=== PATIENT | female | born 2000 | race Caucasian/White ===

== ENCOUNTER → 2020-02-29 09:59 | Outpatient (BNVA) | payer OTHER, SELFPAY | PROVIDERS: Family Provider Physician Assistant Medical; PCP Physician Assistant Medical; Visit Provider Registered Nurse | DX: M25.9 Joint disorder, unspecified (principal) | CPT/HCPCS: 86140; 86431 ==

== ENCOUNTER → 2020-04-18 11:11 | Outpatient (BNVA) | payer OTHER, SELFPAY | PROVIDERS: Family Provider Physician Assistant Medical; PCP Physician Assistant Medical; Visit Provider Obstetrics & Gynecology | DX: R87.612 Low grade squamous intraepithelial lesion on cytologic smear of cervix (LGSIL) (principal); Z01.411 Encounter for gynecological examination (general) (routine) with abnormal findings; N92.6 Irregular menstruation, unspecified | CPT/HCPCS: 88175 ==

== ENCOUNTER 2021-04-09 10:24 | Emergency (ER) | payer OTHER, MEDICAID, SELFPAY ==
[2021-04-09 10:37] VITALS: BP 111/69; PULSE 63; RESP 18; TEMP 36.8; O2SAT 98; BMI 31.8
--- NOTE | 2021-04-09 10:49 | US_ITS ---
WS: [id number] EARLY OBSTETRICAL ULTRASOUND (<14 WEEKS). HISTORY: 7 weeks and spotting red blood COMPARISON: None available. Single intrauterine gestational sac is identified. Cardiac activity at 129. [place]-rump length measure s 0.7 cm which corresponds to a gestation of 6w4d. Normal-appearing yolk sac and amnion demonstrated. No subchorionic hemorrhage. Small amount of free fluid in the cul-de-sac. Both ovaries are identified and unremarkable. Corpus [place]are[place] teum cyst with the RIGHT ovary measures 2.3 x 2.3 x 1.7 cm. On several images there is a possibility of a bicornuate or septate uterus. US/US OB transvaginal [id number] IMPRESSION: 1. Single intrauterine gestation of 6 weeks 4 days with an EDC of 11/29/2021. 2. Normal cardiac activity. 3. No subchorionic hemorrhage.
--- NOTE | 2021-04-09 10:50 | ED_ITS ---
HPI - Female Genitourinary General: Chief complaint: Urogenital-Female Stated complaint: Spotting, cramping dr sent for ultrasound Time Seen by Provider: 04/09/21 10:48 History of Present Illness: HPI Narrative: Patient is a 21-year-old female that is 7 weeks and is having some vaginal bleeding. [facility] today and was sent here to the ED to get an ultrasound. Patient says she has had vaginal bleeding of bright red blood for the past 4 days. She says the bleeding has not decreased or increased since it started and has stayed consistent. Denies any passage of clots. She says she goes through approximately 2 pads in 2 hours. She also endorses having some lower abdominal cramping that is mild. Denies any fever, chills, vomiting, bladder or bowel symptoms. Associated symptoms: Reports abdominal pain (lower abdominal cramping); Deny headache(s) or nausea Date of Last Menstrual Period: 02/13/21 Review of Systems Const: Denies: fever(s), chills or fatigue Eyes: Denies: change in vision or eye discomfort ENMT: Denies: throat pain, odynophagia, nasal discharge or nasal congestion Card: Denies: chest pain, palpitations, edema, swelling of feet/ankles, dyspnea on exertion or orthopnea Resp: Denies: dyspnea, productive cough or non-productive cough GI: Reports: abdominal pain (lower abdominal cramping); Denies: nausea, vomiting, diarrhea, constipation or hematochezia : Reports: vaginal bleeding; Denies: flank pain, dysuria or hematuria Musc: Denies: neck pain, back pain or extremity swelling Skin/Breast: Denies: rash or new lesions Neuro: Denies: headache(s), numbness in extremities or weakness in extremities PFSH ED PFSH: Medical History Abnormal Pap smear of cervix Irregular menstrual bleeding Surgical History History of ear surgery Family History Grandmother Diabetes maternal Hypertension maternal Family/Other Colon cancer maternal uncle Grandfather Heart disease Other Ovarian cancer Social History Smoking and tobacco status: never smoked Second hand smoke exposure: No Alcohol intake: current Alcohol intake frequency: few times a week Current gender identity: Female Female Reproductive History: Date of last menstrual period: 02/13/21 Physical Exam Const: COMMON NORMALS: no acute distress, patient oriented x3 and alert GENERAL APPEARANCE: cooperative and comfortable HENMT: COMMON NORMALS: normocephalic HEAD & SCALP: normocephalic MOUTH: Normal oral and palatal mucosa present THROAT: posterior oropharynx normal and uvula midline Neck/C-Spine: COMMON NORMALS: supple GENERAL: Yes normal visual inspection Resp: COMMON NORMALS: normal respiratory effort, No retractions, No use of accessory muscles and clear to auscultation bilaterally AUSCULTATION: clear to auscultation bilaterally Cardio: COMMON NORMALS: regular rate, regular rhythm, S1 normal heart sound present, S2 normal heart sound present, No gallops present (Cardio), No clicks present (Cardio), No murmurs present (Cardio) and Peripheral pulses 2+ throughout RATE: regular rate RHYTHM: regular rhythm HEART SOUNDS: S1 normal heart sound present and S2 normal heart sound present PERIPHERAL PULSES: Peripheral pulses 2+ throughout GI: COMMON NORMALS: Normal to inspection, nondistended, normoactive bowel sounds present, Soft to palpation, non-tender and no masses PALPATION: Yes Soft to palpation OTHER: Patient has no tenderness upon deep and light pa lpation in all 4 quadrants of the abdomen. : COMMON NORMALS: Yes no CVA tenderness BLADDER/KIDNEY EXAM: Yes no CVA tenderness Back/Pelvis: COMMON NORMALS: no CVA tenderness Extremity: COMMON NORMALS: normal to inspection Neuro: COMMON NORMALS: patient oriented x3 and moves all extremities SENSORIUM/ORIENTATION: Yes alert Skin: GENERAL SKIN EXAM: dry skin Course Vital Signs: Vital signs: Vital Signs Temperature 98.3 F 04/09/21 10:37 Pulse Rate 63 04/09/21 10:37 Respiratory Rate 18 04/09/21 10:37 Blood Pressure 111/69 04/09/21 10:37 Pulse Oximetry 98 04/09/21 10:37 MDM - Female MDM Narrative: Medical decision making narrative: Patient is a 21-year-old female that is approximately 7 weeks gestation comes to the ED for spotting and cramping. Patient was sent over here by OB doctor to get an ultrasound. Upon exam patient appears in no acute distress or pain and is nontoxic-appearing. Rest of exam is benign. Vitals are stable. CBC, CMP and UA were unremarkable. hCG quant 52,027. OB ultrasound showed a single intrauterine with a gestational around 6 weeks and 4 days. Normal cardiac activity noted. No subchorionic hemorrhage seen. Patient was diagnosed with vaginal bleeding for 22 weeks gestation and discharged home. She has a follow-up appointment with her OB doctor next April 16. Return to ED precautions given. Patient understood agree with plan. Lab Data: Attestation: I reviewed the patient's lab results. Labs: Lab Results 04/09/21 04/09/21 04/09/21 Range/Units 11:36 11:36 11:36 WBC 5.5 (4.0-10.0) 10^3/ uL RBC 4.16 (4.1-5.3) 10^6/u L Hgb 12.5 (11.5-15.3) g/dL Hct 36.7 L (37.0-47.0) % MCV 88.2 (81-99) fL MCH 30.0 (28.0-34.0) pg MCHC 34.1 (30.0-36.0) g/dL RDW 11.9 L (12.1-15.1) % Plt Count 197 (130-400) 10^3/c mm MPV 11.5 H (7.4-10.4) fL Neut % (Auto) 63.0 % Lymph % (Auto) 27.3 % [place] % (Auto) 7.9 % Eos % (Auto) 1.1 % Baso % (Auto) 0.5 % Neut # (Auto) 3.49 (1.8-7.7) 10^3/u L Lymph # (Auto) 1.5 (0.8-4.8) 10^3/u L [place] # (Auto) 0.4 (0.2-0.9) 10^3/u L Eos # (Auto) 0.1 (0.0-0.8) 10^3/u L Baso # (Auto) 0.0 (0.0-0.1) 10^3/u L Nucleated RBC % (a uto) 0 % Nucleated RBCs # 0.0 /100WBC Sodium 137 (136-145) mmol/L Potassium 3.9 (3.5-5.1) mmol/L Chloride 102 (98-107) mmol/L Carbon Dioxide 25 (22-29) mmol/L Anion Gap 13.9 (5-19) BUN 9 (6-20) mg/dL Creatinine 0.5 (0.5-0.9) mg/dL GFR Calculation 152.9 H (90-130) mL/min Glucose 85 (65-115) mg/dL Calculated Osmolal ity 282 L (285-295) mOsm/k g Calcium 9.0 (8.5-10.5) mg/dL Total Bilirubin 0.3 (0.15-1.2) mg/dL AST 16 (0-32) U/L ALT 17 (0-33) U/L Alkaline Phosphata se 50 (35-105) IU/L Total Protein 7.2 (6.6-8.7) g/dL Albumin 4.4 (3.5-5.2) g/dL Globulin 2.8 (1.3-4.6) g/dL Ser , [place]nt 03866.00 mIU/mL Urine Color Yellow (Yellow) Urine Appearance Clear (CLEAR) Urine pH 6 (5-7) Ur Specific Gravit y 1.015 (1.005-1.030) Urine Protein Neg (Negative) Urine Glucose (UA) Norm (Normal) Urine Ketones Negative (Negative) Urine Blood 2+ H (Negative) Urine Nitrate Negative (Negative) Urine Bilirubin Neg (Negative) Urine Urobilinogen Norm (Negative) mg/dL Ur Leukocyte Lachelle ase Negative (Negative) Urine RBC Rare (0-2) /hpf Urine WBC None (0-5) /hpf Ur Squamous Epith Cells 5-10 H (0-5) /hpf Amorphous Sediment Not Reportable Urine Bacteria None (NONE) /hpf Imaging Data: US OB: Attestation: I personally reviewed and interpreted this imaging study as follows: Radiologist's impression: [address] [place] [address] Ultrasound Report Signed Patient: Rebekah Aldridge Unit #: [id number] : 2000 Age/Sex: 21 / F ADM Date: 04/09/21 Loc: ER Room/Bed: Attending Dr: Ordering Provider/Ordering MD: Tawanda Gregory Date of Service: 04/09/21 Procedure(s): OB transvaginal [id number] Accession Number(s): [id number] Report Number: [id number] WS: [id number] EARLY OBSTETRICAL ULTRASOUND (<14 WEEKS). HISTORY: 7 weeks and spotting red blood COMPARISON: None available. Single intrauterine gestational sac is identified. Cardiac activity at 129. [place]-rump length measures 0.7 cm which corresponds to a gestation of 6w4d. Normal-appearing yolk sac and amnion demonstrated. No subchorionic hemorrhage. Small amount of free fluid in the cul-de-sac. Both ovaries are identified and unremarkable. Corpus luteum cyst with the RIGHT ovary measures 2.3 x 2.3 x 1.7 cm. On several images there is a possibility of a bicornuate or septate uterus. US/ OB transvaginal [id number] IMPRESSION: 1. Single intrauterine gestation of 6 weeks 4 days with an EDC of 11/29/2021. 2. Normal cardiac activity. 3. No subchorionic hemorrhage. Dictated By: Willa Ramírez DO Signed By: Willa Ramírez DO Signed Date/Time: 04/09/211134 DD/ 1132 Discharge Plan Discharge Patient Disposition: Home Clinical Impression: Vaginal bleeding before 22 weeks gestation Condition: Stable Prescriptions: No Action clobetasol 0.05 % ointment See Rx Instructions .ROUTE .COMPLEX RF: 0 1 tab PO DAILY RF: 0 Discharge Orders: Discharge ED (Routine); Ordered 04/09/21 Ordered By: Tawanda Gregory Referrals: Shad Garcia [Primary Care Provider] - Discharge Diet: Regular Discharge Activity: Increase activity as tolerated Activity Restrictions/Additional Instructions: Follow-up with OB doctor at your next scheduled appointment this coming . Take [id number] Tylenol for pain. Return to the ER or your medical provider if condition worsens. Please read and understand discharge instructions. Thank you for choosing [facility] for your healthcare needs today. Please realize this is an emergency room and that we are providing you with a medical screening exam and this may not be complete and all inclusive of all the testing and or work up that you may need to determine your ailment or severity of your illness. It is very important that you follow up as instructed or that you return to the Emergency Department should you have concerns or if your condition changes or worsens in any way. Coding Level of Care Code ED Business Analyst [employer] Operations for [employer] Fwd Exam Comprehensive
[2021-04-09 11:42] LABS: Basophils % 0.5 %; Eosinophils # 0.1 10^3/uL (0.0-0.8); Eosinophils % 1.1 %; Hematocrit 36.7 % (37.0-47.0); Hemoglobin 12.5 g/dL (11.5-15.3); Lymphocytes # 1.5 10^3/uL (0.8-4.8); Lymphocytes % 27.3 %; Mean Corpuscular HGB Conc 34.1 g/dL (30.0-36.0); Mean Corpuscular Volume 88.2 fL (81-99); Mean Platelet Volume 11.5 fL (7.4-10.4); Monocytes # 0.4 10^3/uL (0.2-0.9); Monocytes % 7.9 %; Neutrophils # 3.49 10^3/uL (1.8-7.7); Nucleated Red Blood Cells % 0 %; Platelet Count 197 10^3/cmm (130-400); Red Blood Count 4.16 10^6/uL (4.1-5.3); Red Cell Distribution Width 11.9 % (12.1-15.1); White Blood Count 5.5 10^3/uL (4.0-10.0)
[2021-04-09 11:47] LABS: Glucose Urine UA Norm (Normal); Ketones Urine Negative (Negative); Protein Urine Neg (Negative); Specific Gravity, Urine 1.015 (1.005-1.030); Urine Appearance Clear (CLEAR); Urine Color Yellow (Yellow); pH Urine 6 (5-7)
[2021-04-09 11:48] LABS: Bilirubin Urine Neg (Negative); Blood Urine 2+ (Negative); Leukocyte Esterase Urine Negative (Negative); Nitrate Urine Negative (Negative); RBC Urine RARE /hpf (0-2); Urobilinogen Urine Norm (Negative)
[2021-04-09 12:11] LABS: Alanine Aminotransferase 17 U/L (0-33); Albumin Level 4.4 g/dL (3.5-5.2); Alkaline Phosphatase 50 IU/L (35-105); Anion Gap 13.9 (5-19); Aspartate Amino Transferase 16 U/L (0-32); Blood Urea Nitrogen 9 mg/dL (6-20); Carbon Dioxide 25 mmol/L (22-29); Chloride 102 mmol/L (98-107); Globulin 2.8 g/dL (1.3-4.6); Glomerular Filtration Rate 152.9 mL/min (90-130); Glucose 85 mg/dL (65-115); Osmolality Calculated 282 mOsm/kg (285-295); Potassium 3.9 mmol/L (3.5-5.1); Sodium 137 mmol/L (136-145); Total Bilirubin 0.3 mg/dL (0.15-1.2); Total Protein 7.2 g/dL (6.6-8.7)
== END 2021-04-09 12:52 | disposition home or self-care (01) ==
PROVIDERS: Emergency Provider Physician Assistant; PCP Physician Assistant Medical
DX: O20.9 Hemorrhage in early pregnancy, unspecified (principal); Z3A.01 Less than 8 weeks gestation of pregnancy
CPT/HCPCS: 76817; 80053; 81001; 84702; 85025; 99283

== ENCOUNTER → 2021-04-16 14:37 | Outpatient (BNVA) | payer OTHER, SELFPAY | PROVIDERS: PCP Family Medicine; Visit Provider Nurse Practitioner Women's Health | DX: N91.2 Amenorrhea, unspecified (principal) | CPT/HCPCS: 81025 ==

== ENCOUNTER 2021-04-20 15:10 | Emergency (ER) | payer OTHER, MEDICAID, SELFPAY ==
[2021-04-20 15:59] VITALS: BP 119/78; PULSE 75; RESP 16; TEMP 36.7; O2SAT 100; BMI 33.6
--- NOTE | 2021-04-20 16:41 | ED_ITS ---
Documented by User: ANGELLA Bhat 04/21/21 07:10 HPI - General: Chief complaint: OB/Uterine Contractions Stated complaint: 8 WKS , SPOTTING TODAY, CRAMPING YEST Time Seen by Provider: 04/20/21 16:29 Source: patient Mode of arrival: ambulatory Limitations: no limitations History of Present Illness: HPI Narrative: Patient is a 21-year-old female at approximately 8 weeks here for vaginal spotting that began today. Patient tells me she noticed blood when she was wiping as well as a quarter sized spot on her underwear. She complains of some mild pelvic cramping. Patient was seen at our facility approximately 10 days ago for similar symptoms. She had an ultrasound showed a live IUP. She states bleeding at that time lasted 1 to 2 days and had stopped at her follow-up appointment with [facility]. Had an episode yesterday as well of very light spotting that lasted a few hours and then subsided. No vaginal discharge/odor, new sexual partners, or concerns for STDs. MD Complaint: vaginal bleeding Onset (ago): hour(s) Location: pelvis Severity: mild Quality: Cramping Relieving factors: none Exacerbating factors: none Vaginal bleeding: light Date of Last Menstrual Period: 02/13/21 Patient : Yes care: followed by OB and previous ultrasound confirms IUP Associated symptoms: Reports no associated symptoms; Deny abdominal pain, dysuria, headache(s), malaise, nausea, vaginal discharge or vomiting Related Data: : 1 Para: 0 Total number of abortions (spontaneous and elective): 0 Review of Systems Const: Denies: fever(s), chills, body aches, fatigue or malaise Card: Denies: chest pain Resp: Denies: dyspnea GI: Denies: abdominal pain, nausea, vomiting or diarrhea : Reports: vaginal bleeding; Denies: flank pain, dysuria, genital lesions, genital pruritis, vaginal odor or vaginal discharge Musc: Denies: back pain Skin/Breast: Denies: rash Neuro: Denies: headache(s) PFSH ED PFSH: Medical History Abnormal Pap smear of cervix Irregular menstrual bleeding No pertinent past medical history Neg. Hx: HTN, DM, DVT/PE PCP: Dr. Ana Luisa Craft Surgical History History of ear surgery Family History Grandmother Diabetes maternal Hypertension maternal Family/Other Colon cancer maternal uncle Grandfather Heart disease Other Ovarian cancer Social History Smoking and tobacco status: never smoked Second hand smoke exposure: No Alcohol intake: current Alcohol intake frequency: few times a week Current gender identity: Female Female Reproductive History: Date of last menstrual period: 02/13/21 : 1 Physical Exam Const: COMMON NORMALS: no acute distress, patient oriented x3, no limitations and alert GENERAL APPEARANCE: cooperative GI: COMMON NORMALS: Normal to inspection, nondistended, normoactive bowel sounds present, Soft to palpation, non-tender, No hepatosplenomegaly present and no masses PALPATION: Yes Soft to palpation and Yes No hepatosplenomegaly present : COMMON NORMALS: Yes no CVA tenderness BLADDER/KIDNEY EXAM: Yes no CVA tenderness Back/Pelvis: COMMON NORMALS: no CVA tenderness Neuro: COMMON NORMALS: patient oriented x3 SENSORIUM/ORIENTATION: Yes alert Skin: COMMON NORMALS: no rashes or lesions noted GENERAL SKIN EXAM: no rashes or lesions noted Course Vital Signs: Vital signs: Vital Signs Temperature 98.1 F 04/20/21 15:59 Pulse Rate 69 04/20/21 19:00 Respiratory Rate 18 04/20/21 19:00 Blood Pressure 126/75 04/20/21 18:59 Pulse Oximetry 100 04/20/21 19:00 MDM - OB/Uterine Contractions MDM Narrative: Medical decision making narrative: Care transferred to Tawanda Gregory PA-C at shift change. Patient has had intermittent spotting several times so far during her . She just had an US approximately a week ago that confirmed a live IUP. I don't feel we need to repeat this today. She has followed up with [facility] since that appointment. Today I would like to just make sure her hcg levels are continuing to rise appropriately. Lab Data: Labs: Lab Results 04/20/21 04/20/21 04/20/21 Range/Units 17:35 17:35 17:35 WBC 7.6 (4.0-10.0) 10^3/ uL RBC 4.03 L (4.1-5.3) 10^6/u L Hgb 12.0 (11.5-15.3) g/dL Hct 35.8 L (37.0-47.0) % MCV 88.8 (81-99) fL MCH 29.8 (28.0-34.0) pg MCHC 33.5 (30.0-36.0) g/dL RDW 11.8 L (12.1-15.1) % Plt Count 185 (130-400) 10^3/c mm MPV 11.8 H (7.4-10.4) fL Neut % (Auto) 64.2 % Lymph % (Auto) 26.4 % [place] % (Auto) 7.5 % Eos % (Auto) 1.1 % Baso % (Auto) 0.5 % Neut # (Auto) 4.87 (1.8-7.7) 10^3/u L Lymph # (Auto) 2.0 (0.8-4.8) 10^3/u L [place] # (Auto) 0.6 (0.2-0.9) 10^3/u L Eos # (Auto) 0.1 (0.0-0.8) 10^3/u L Baso # (Auto) 0.0 (0.0-0.1) 10^3/u L Nucleated RBC % (a uto) 0 % Nucleated RBCs # 0.0 /100WBC Sodium 137 (136-145) mmol/L Potassium 3.7 (3.5-5.1) mmol/L Chloride 103 (98-107) mmol/L Carbon Dioxide 24 (22-29) mmol/L Anion Gap 13.7 (5-19) BUN 12 (6-20) mg/dL Creatinine 0.5 (0.5-0.9) mg/dL GFR Calculation 152.9 H (90-130) mL/min Glucose 83 (65-115) mg/dL Calculated Osmolal ity 283 L (285-295) mOsm/k g Calcium 8.8 (8.5-10.5) mg/dL Total Bilirubin 0.2 (0.15-1.2) mg/dL AST 18 (0-32) U/L ALT 23 (0-33) U/L Alkaline Phosphata se 52 (35-105) IU/L Total Protein 6.7 (6.6-8.7) g/dL Albumin 4.3 (3.5-5.2) g/dL Globulin 2.4 (1.3-4.6) g/dL Ser , Vikas i-Qnt 281981.00 mIU/mL Urine Color (Yellow) Urine Appearance (CLEAR) Urine pH (5-7) Ur Specific Gravit y (1.005-1.030) Urine Protein (Negative) Urine Glucose (UA) (Normal) Urine Ketones (Negative) Urine Blood (Negative) Urine Nitrate (Negative) Urine Bilirubin (Negative) Urine Urobilinogen (Negative) mg/dL Ur Leukocyte Lachelle ase (Negative) Urine RBC (0-2) /hpf Urine WBC (0-5) /hpf Ur Squamous Epith Cells (0-5) /hpf Amorphous Sediment Urine Bacteria (NONE) /hpf Blood Type A Positive Rho(D) Type Positive / 4+ / Range/Units 18:27 WBC (4.0-10.0) 10^3/ uL RBC (4.1-5.3) 10^6/u L Hgb (11.5-15.3) g/dL Hct (37.0-47.0) % MCV (81-99) fL MCH (28.0-34.0) pg MCHC (30.0-36.0) g/dL RDW (12.1-15.1) % Plt Count (130-400) 10^3/c mm MPV (7.4-10.4) fL Neut % (Auto) % Lymph % (Auto) % [place] % (Auto) % Eos % (Auto) % Baso % (Auto) % Neut # (Auto) (1.8-7.7) 10^3/u L Lymph # (Auto) (0.8-4.8) 10^3/u L [place] # (Auto) (0.2-0.9) 10^3/u L Eos # (Auto) (0.0-0.8) 10^3/u L Baso # (Auto) (0.0-0.1) 10^3/u L Nucleated RBC % (a uto) % Nucleated RBCs # /100WBC Sodium (136-145) mmol/L Potassium (3.5-5.1) mmol/L Chloride (98-107) mmol/L Carbon Dioxide (22-29) mmol/L Anion Gap (5-19) BUN (6-20) mg/dL Creatinine (0.5-0.9) mg/dL GFR Calculation (90-130) mL/min Glucose (65-115) mg/dL Calculated Osmolal ity (285-295) mOsm/k g Calcium (8.5-10.5) mg/dL Total Bilirubin (0.15-1.2) mg/dL AST (0-32) U/L ALT (0-33) U/L Alkaline Phosphata se (35-105) IU/L Total Protein (6.6-8.7) g/dL Albumin (3.5-5.2) g/dL Globulin (1.3-4.6) g/dL Ser , Vikas i-Qnt mIU/mL Urine Color Straw (Yellow) Urine Appearance Clear (CLEAR) Urine pH 7 (5-7) Ur Specific Gravit y 1.010 (1.005-1.030) Urine Protein Neg (Negative) Urine Glucose (UA) Norm (Normal) Urine Ketones Negative (Negative) Urine Blood 2+ H (Negative) Urine Nitrate Negative (Negative) Urine Bilirubin Neg (Negative) Urine Urobilinogen Norm (Negative) mg/dL Ur Leukocyte Lachelle ase 2+ H (Negative) Urine RBC 0-4 H (0-2) /hpf Urine WBC 15-25 H (0-5) /hpf Ur Squamous Epith Cells 5-10 H (0-5) /hpf Amorphous Sediment Not Reportable Urine Bacteria 1+ H (NONE) /hpf Blood Type Rho(D) Type Discharge Plan Discharge Patient Disposition: Home Clinical Impression: Vaginal bleeding before 22 weeks gestation Condition: Stable Prescriptions: No Action clobetasol 0.05 % ointment See Rx Instructions .ROUTE .COMPLEX RF: 0 1 tab PO DAILY RF: 0 Discharge Orders: Discharge ED (Routine); Ordered 04/20/21 Ordered By: Tawanda Gregory Referrals: Ana Luisa Craft [Primary Care Provider] - Discharge Diet: Regular Discharge Activity: Resume usual activity Activity Restrictions/Additional Instructions: Follow-up with OB doctor at your next appointment. If you are having any pain you can take [id number] Tylenol.. Return to the ER or your medical provider if condition worsens. Please read and understand discharge instru ctions. Thank you for choosing [facility] for your healthcare needs today. Please realize this is an emergency room and that we are providing you with a medical screening exam and this may not be complete and all inclusive of all the testing and or work up that you may need to determine your ailment or severity of your illness. It is very important that you follow up as instructed or that you return to the Emergency Department should you have concerns or if your condition changes or worsens in any way. Sign Out Sign Out Data: Patient Sign Out occurred on 04/20/21 at 17:14. Patient's care was discussed, and care was transferred from to AGNELLA Olsen. Coding Level of Care Code ED Crop And Soil Scientist for Chg Fwd Exam Expanded Problem Focused Documented by User: ANGELLA Olsen 04/21/21 02:16 HPI - General: Chief complaint: OB/Uterine Contractions Stated complaint: 8 WKS , SPOTTING TODAY, CRAMPING YEST Time Seen by Provider: 04/20/21 16:29 [facility] ED PFSH: Medical History Abnormal Pap smear of cervix Irregular menstrual bleeding No pertinent past medical history Neg. Hx: HTN, DM, DVT/PE PCP: Dr. Ana Luisa Craft Surgical History History of ear surgery Family History Grandmother Diabetes maternal Hypertension maternal Family/Other Colon cancer maternal uncle Grandfather Heart disease Other Ovarian cancer Social History Smoking and tobacco status: never smoked Second hand smoke exposure: No Alcohol intake: current Alcohol intake frequency: few times a week Current gender identity: Female Course Vital Signs: Vital signs: Vital Signs Temperature 98.1 F 04/20/21 15:59 Pulse Rate 69 04/20/21 19:00 Respiratory Rate 18 04/20/21 19:00 Blood Pressure 126/75 04/20/21 18:59 Pulse Oximetry 100 04/20/21 19:00 MDM - OB/Uterine Contractions MDM Narrative: Medical decision making narrative: I took over patient case from Annamarie Johnson the physician's project assistant at shift change 5 PM today. Annamarie told me she was just waiting on some of patient's labs and then will determine discharge. Patient is a 21-year-old female that is currently 8 weeks and comes to the ED with some light vaginal spotting. She was seen here in the ED back on April 09 for same complaint and an ultrasound was performed that showed a healthy intrauterine . Patient's seems nontoxic and is in no acute distress or pain. Her hCG level was 117,265 today. Her hCG level on April 09 was around 52,000, so her progression of hCG levels is normal. Her CBC, UA and CMP were unremarkable. Patient was diagnosed with vaginal bleeding for 22 weeks gestation and discharged home. She has a follow-up appointment with her OB doctor in a little over a week. Return to ED precautions given. Patient understood agree with plan. Lab Data: Attestation: I reviewed the patient's lab results. Labs: Lab Results 04/20/21 04/20/21 04/20/21 Range/Units 17:35 17:35 17:35 WBC 7.6 (4.0-10.0) 10^3/ uL RBC 4.03 L (4.1-5.3) 10^6/u L Hgb 12.0 (11.5-15.3) g/dL Hct 35.8 L (37.0-47.0) % MCV 88.8 (81-99) fL MCH 29.8 (28.0-34.0) pg MCHC 33.5 (30.0-36.0) g/dL RDW 11.8 L (12.1-15.1) % Plt Count 185 (130-400) 10^3/c mm MPV 11.8 H (7.4-10.4) fL Neut % (Auto) 64.2 % Lymph % (Auto) 26.4 % [place] % (Auto) 7.5 % Eos % (Auto) 1.1 % Baso % (Auto) 0.5 % Neut # (Auto) 4.87 (1.8-7.7) 10^3/u L Lymph # (Auto) 2.0 (0.8-4.8) 10^3/u L [place] # (Auto) 0.6 (0.2-0.9) 10^3/u L Eos # (Auto) 0.1 (0.0-0.8) 10^3/u L Baso # (Auto) 0.0 (0.0-0.1) 10^3/u L Nucleated RBC % (a uto) 0 % Nucleated RBCs # 0.0 /100WBC Sodium 137 (136-145) mmol/L Potassium 3.7 (3.5-5.1) mmol/L Chloride 103 (98-107) mmol/L Carbon Dioxide 24 (22-29) mmol/L Anion Gap 13.7 (5-19) BUN 12 (6-20) mg/dL Creatinine 0.5 (0.5-0.9) mg/dL GFR Calculation 152.9 H (90-130) mL/min Glucose 83 (65-115) mg/dL Calculated Osmolal ity 283 L (285-295) mOsm/k g Calcium 8.8 (8.5-10.5) mg/dL Total Bilirubin 0.2 (0.15-1.2) mg/dL AST 18 (0-32) U/L ALT 23 (0-33) U/L Alkaline Phosphata se 52 (35-105) IU/L Total Protein 6.7 (6.6-8.7) g/dL Albumin 4.3 (3.5-5.2) g/dL Globulin 2.4 (1.3-4.6) g/dL Ser , Vikas i-Qnt 732189.00 mIU/mL Urine Color (Yellow) Urine Appearance (CLEAR) Urine pH (5-7) Ur Specific Gravit y (1.005-1.030) Urine Protein (Negative) Urine Glucose (UA) (Normal) Urine Ketones (Negative) Urine Blood (Negative) Urine Nitrate (Negative) Urine Bilirubin (Negative) Urine Urobilinogen (Negative) mg/dL Ur Leukocyte Lachelle ase (Negative) Urine RBC (0-2) /hpf Urine WBC (0-5) /hpf Ur Squamous Epith Cells (0-5) /hpf Amorphous Sediment Urine Bacteria (NONE) /hpf Blood Type A Positive Rho(D) Type Positive / 4+ 04/20/21 Range/Units 18:27 WBC (4.0-10.0) 10^3/ uL RBC (4.1-5.3) 10^6/u L Hgb (11.5-15.3) g/dL Hct (37.0-47.0) % MCV (81-99) fL MCH (28.0-34.0) pg MCHC (30.0-36.0) g/dL RDW (12.1-15.1) % Plt Count (130-400) 10^3/c mm MPV (7.4-10.4) fL Neut % (Auto) % Lymph % (Auto) % [place] % (Auto) % Eos % (Auto) % Baso % (Auto) % Neut # (Auto) (1.8-7.7) 10^3/u L Lymph # (Auto) (0.8-4.8) 10^3/u L [place] # (Auto) (0.2-0.9) 10^3/u L Eos # (Auto) (0.0-0.8) 10^3/u L Baso # (Auto) (0.0-0.1) 10^3/u L Nucleated RBC % (a uto) % Nucleated RBCs # /100WBC Sodium (136-145) mmol/L Potassium (3.5-5.1) mmol/L Chloride (98-107) mmol/L Carbon Dioxide (22-29) mmol/L Anion Gap (5-19) BUN (6-20) mg/dL Creatinine (0.5-0.9) mg/dL GFR Calculation (90-130) mL/min Glucose (65-115) mg/dL Calculated Osmolal ity (285-295) mOsm/k g Calcium (8.5-10.5) mg/dL Total Bilirubin (0.15-1.2) mg/dL AST (0-32) U/L ALT (0-33) U/L Alkaline Phosphata se (35-105) IU/L Total Protein (6.6-8.7) g/dL Albumin (3.5-5.2) g/dL Globulin (1.3-4.6) g/dL Ser , Vikas i-Qnt mIU/mL Urine Color Straw (Yellow) Urine Appearance Clear (CLEAR) Urine pH 7 (5-7) Ur Specific Gravit y 1.010 (1.005-1.030) Urine Protein Neg (Negative) Urine Glucose (UA) Norm (Normal) Urine Ketones Negative (Negative) Urine Blood 2+ H (Negative) Urine Nitrate Negative (Negative) Urine Bilirubin Neg (Negative) Urine Urobilinogen Norm (Negative) mg/dL Ur Leukocyte Lachelle ase 2+ H (Negative) Urine RBC 0-4 H (0-2) /hpf Urine WBC 15-25 H (0-5) /hpf Ur Squamous Epith Cells 5-10 H (0-5) /hpf Amorphous Sediment Not Reportable Urine Bacteria 1+ H (NONE) /hpf Blood Type Rho(D) Type Discharge Plan Discharge Patient Disposition: Home Clinical Impression: Vaginal bleeding before 22 weeks gestation Condition: Stable Prescriptions: No Action clobetasol 0.05 % ointment See Rx Instructions .ROUTE .COMPLEX RF: 0 1 tab PO DAILY RF: 0 Discharge Orders: Discharge ED (Routine); Ordered 04/20/21 Ordered By: Tawanda Gregory Referrals: Ana Luisa Craft [Primary Care Provider] - Discharge Diet: Regular Discharge Activity: Resume usual activity Activity Restrictions/Additional Instructions: Follow-up with OB doctor at your next appointment. If you are having any pain you can take [id number] Tylenol.. Return to the ER or your medical provider if condition worsens. Please read and understand discharge instructions. Thank you for choosing [facility] for your healthcare needs today. Please realize this is an emergency room and that we are providing you with a me dical screening exam and this may not be complete and all inclusive of all the testing and or work up that you may need to determine your ailment or severity of your illness. It is very important that you follow up as instructed or that you return to the Emergency Department should you have concerns or if your condition changes or worsens in any way. Sign Out Sign Out Data: Patient Sign Out occurred on 04/20/21 at 17:14. Patient's care was discussed, and care was transferred from to Tawanda Colt, PA. Coding Level of Care Code ED Crop And Soil Scientist for Chg Fwd Exam Expanded Problem Focused
[2021-04-20 17:55] LABS: Basophils % 0.5 %; Eosinophils # 0.1 10^3/uL (0.0-0.8); Eosinophils % 1.1 %; Hematocrit 35.8 % (37.0-47.0); Lymphocytes % 26.4 %; Mean Corpuscular HGB Conc 33.5 g/dL (30.0-36.0); Mean Corpuscular Hemoglobin 29.8 pg (28.0-34.0); Mean Corpuscular Volume 88.8 fL (81-99); Mean Platelet Volume 11.8 fL (7.4-10.4); Monocytes # 0.6 10^3/uL (0.2-0.9); Monocytes % 7.5 %; Neutrophils # 4.87 10^3/uL (1.8-7.7); Neutrophils % 64.2 %; Nucleated Red Blood Cells % 0 %; Platelet Count 185 10^3/cmm (130-400); Red Blood Count 4.03 10^6/uL (4.1-5.3); Red Cell Distribution Width 11.8 % (12.1-15.1); White Blood Count 7.6 10^3/uL (4.0-10.0)
[2021-04-20 18:41] LABS: Alanine Aminotransferase 23 U/L (0-33); Albumin Level 4.3 g/dL (3.5-5.2); Alkaline Phosphatase 52 IU/L (35-105); Anion Gap 13.7 (5-19); Aspartate Amino Transferase 18 U/L (0-32); Blood Urea Nitrogen 12 mg/dL (6-20); Calcium 8.8 mg/dL (8.5-10.5); Carbon Dioxide 24 mmol/L (22-29); Chloride 103 mmol/L (98-107); Globulin 2.4 g/dL (1.3-4.6); Glomerular Filtration Rate 152.9 mL/min (90-130); Glucose 83 mg/dL (65-115); Osmolality Calculated 283 mOsm/kg (285-295); Potassium 3.7 mmol/L (3.5-5.1); Sodium 137 mmol/L (136-145); Total Bilirubin 0.2 mg/dL (0.15-1.2); Total Protein 6.7 g/dL (6.6-8.7)
[2021-04-20 18:57] LABS: Protein Urine Neg (Negative); Urine Appearance Clear (CLEAR); Urine Color Straw (Yellow); pH Urine 7 (5-7)
[2021-04-20 18:58] LABS: Add Urine Culture? Yes; Bacteria Urine 1+ /hpf; Bilirubin Urine Neg (Negative); Blood Urine 2+ (Negative); Glucose Urine UA Norm (Normal); Ketones Urine Negative (Negative); Leukocyte Esterase Urine 2+ (Negative); Nitrate Urine Negative (Negative); RBC Urine 0-4 /hpf (0-2); Urobilinogen Urine Norm (Negative); WBC Urine 15-25 /hpf (0-5)
[2021-04-20 18:59] VITALS: BP 126/75; PULSE 72; RESP 17; O2SAT 100
[2021-04-20 19:00] VITALS: PULSE 69; RESP 18; O2SAT 100
== END 2021-04-20 19:12 | disposition home or self-care (01) ==
PROVIDERS: Physician Assistant; Emergency Provider Physician Assistant; PCP Nurse Practitioner Family
DX: O20.9 Hemorrhage in early pregnancy, unspecified (principal); Z3A.08 8 weeks gestation of pregnancy
CPT/HCPCS: 80053; 81001; 84702; 85025; 86900; 87086; 99282

== ENCOUNTER → 2021-05-01 09:03 | Outpatient (BNVA) | payer OTHER, SELFPAY | PROVIDERS: PCP Nurse Practitioner Family; Visit Provider Obstetrics & Gynecology | DX: Z34.01 Encounter for supervision of normal first pregnancy, first trimester (principal) | CPT/HCPCS: 80307; 84315; 85027; 86592; 86762; 86803; 86850; 87086; 87340 ==

== ENCOUNTER → 2021-05-15 09:03 | Outpatient (BNVA) | payer OTHER, MEDICAID, SELFPAY | PROVIDERS: PCP Nurse Practitioner Family; Visit Provider Obstetrics & Gynecology | DX: Z34.01 Encounter for supervision of normal first pregnancy, first trimester | CPT/HCPCS: 82950; 84315; 87491; 87591; 87661 ==

== ENCOUNTER → 2021-07-08 13:48 | Outpatient (BNVA) | payer OTHER, MEDICAID, SELFPAY | PROVIDERS: PCP Nurse Practitioner Family; Visit Provider Nurse Practitioner Family | DX: Z20.822 Contact with and (suspected) exposure to COVID-19 (principal); J32.9 Chronic sinusitis, unspecified | CPT/HCPCS: 87635 ==

== ENCOUNTER → 2021-07-24 11:06 | Outpatient (BNVA) | payer OTHER, MEDICAID, SELFPAY | PROVIDERS: PCP Nurse Practitioner Family; Visit Provider Obstetrics & Gynecology | DX: Z36.89 Encounter for other specified antenatal screening (principal) | CPT/HCPCS: 76805 ==

== ENCOUNTER → 2021-08-07 09:55 | Outpatient (BNVA) | payer OTHER, MEDICAID, SELFPAY | PROVIDERS: PCP Nurse Practitioner Family; Visit Provider Obstetrics & Gynecology | DX: Z34.80 Encounter for supervision of other normal pregnancy, unspecified trimester (principal) | CPT/HCPCS: 81000 ==

== ENCOUNTER → 2021-08-18 10:08 | Outpatient (BNVA) | payer OTHER, MEDICAID, SELFPAY | PROVIDERS: PCP Nurse Practitioner Family; Visit Provider Obstetrics & Gynecology | DX: Z34.01 Encounter for supervision of normal first pregnancy, first trimester (principal) | CPT/HCPCS: 82950; 84315 ==

== ENCOUNTER → 2021-09-11 11:34 | Outpatient (BNVA) | payer OTHER, MEDICAID, SELFPAY | PROVIDERS: PCP Nurse Practitioner Family; Visit Provider Obstetrics & Gynecology | DX: Z34.01 Encounter for supervision of normal first pregnancy, first trimester (principal) | CPT/HCPCS: 81000; 85027 ==

== ENCOUNTER 2021-10-06 10:36 | Outpatient (CLI) | payer OTHER, MEDICAID, SELFPAY ==
[2021-10-06] VITALS (12 sets, daily range): BP systolic 98–119; BP diastolic 54–68; PULSE 77–100; TEMP 36.7; BMI 34.9
[2021-10-06 11:45] LABS: Basophils % 0.2 %; Eosinophils % 0.7 %; Hematocrit 33.3 % (37.0-47.0); Hemoglobin 11.4 g/dL (11.5-15.3); Lymphocytes # 0.7 10^3/uL (0.8-4.8); Lymphocytes % 15.9 %; Mean Corpuscular HGB Conc 34.2 g/dL (30.0-36.0); Mean Corpuscular Hemoglobin 31.1 pg (28.0-34.0); Mean Platelet Volume 11.6 fL (7.4-10.4); Monocytes # 0.4 10^3/uL (0.2-0.9); Monocytes % 8.6 %; Neutrophils # 3.37 10^3/uL (1.8-7.7); Neutrophils % 74.2 %; Nucleated Red Blood Cells % 0 %; Platelet Count 149 10^3/cmm (130-400); Red Blood Count 3.66 10^6/uL (4.1-5.3); Red Cell Distribution Width 12.7 % (12.1-15.1); White Blood Count 4.5 10^3/uL (4.0-10.0)
[2021-10-06] MEDS: lactated ringers 1,000 ML 999 ML IV (11:47)
[2021-10-06 12:01] LABS: Alanine Aminotransferase 12 U/L (0-33); Albumin Level 3.8 g/dL (3.5-5.2); Alkaline Phosphatase 100 IU/L (35-105); Anion Gap 18.5 (5-19); Aspartate Amino Transferase 17 U/L (0-32); Blood Urea Nitrogen 5 mg/dL (6-20); Calcium 8.3 mg/dL (8.5-10.5); Carbon Dioxide 18 mmol/L (22-29); Chloride 104 mmol/L (98-107); Globulin 2.4 g/dL (1.3-4.6); Glomerular Filtration Rate 275.7 mL/min (90-130); Glucose 73 mg/dL (65-115); Osmolality Calculated 280 mOsm/kg (285-295); Potassium 3.5 mmol/L (3.5-5.1); Sodium 137 mmol/L (136-145); Total Bilirubin 0.4 mg/dL (0.15-1.2); Total Protein 6.2 g/dL (6.6-8.7)
[2021-10-06] MEDS: dextrose 5%-lactated ringers 1,000 ML 125 ML IV (12:47)
--- NOTE | 2021-10-06 15:17 | PM.ACPR ---
Procedure/Consent Procedure Narrative: NONSTRESS TEST: Place of test: [facility] [place]L&D Indication: 21-year-old 1 para 0 at 32 weeks and 2 days, nausea, abdominal pain, diarrhea Date and time of test: 10/06/2021, 12:50 PM Baseline: 125 Variability: Moderate variability Accelerations: Accelerations present Decelerations: No decelerations Tocometry: No contractions having some irritability INTERPRETATION: NST reactive, continue kick counts
== END 2021-10-06 14:00 | disposition home or self-care (01) ==
LOC: OPOB 10:36 → OBGYN 10:39
PROVIDERS: PCP Nurse Practitioner Family; Visit Provider Obstetrics & Gynecology
DX: O99.891 Other specified diseases and conditions complicating pregnancy (principal); R19.7 Diarrhea, unspecified; R10.9 Unspecified abdominal pain; O21.9 Vomiting of pregnancy, unspecified; Z3A.32 32 weeks gestation of pregnancy
CPT/HCPCS: 36415; 59025; 80053; 85025; 99211

== ENCOUNTER → 2021-11-10 11:32 | Outpatient (BNVA) | payer OTHER, MEDICAID, SELFPAY | PROVIDERS: PCP Nurse Practitioner Family; Visit Provider Obstetrics & Gynecology | DX: O34.599 Maternal care for other abnormalities of gravid uterus, unspecified trimester (principal); Z3A.00 Weeks of gestation of pregnancy not specified | CPT/HCPCS: 84315; 87081 ==

== ENCOUNTER 2021-11-15 16:25 | Outpatient (CLI) | payer OTHER, MEDICAID, SELFPAY ==
[2021-11-15 16:25] VITALS: BMI 37.3
--- NOTE | 2021-11-15 16:39 | USR_ITS ---
PROCEDURE INFORMATION: Exam: US Biophysical Profile Without Non-Stress Test Exam date and time: 11/15/2021 4:39 PM Age: 21 years old Clinical indication: Other: Decreased movement; TECHNIQUE: Imaging protocol: US biophysical profile without non-stress testing. COMPARISON: US OB >= 14 weeks fetus [id number] 07/24/2021 11:07 AM FINDINGS: heart rate: 147 bpm. Presentation: Cephalic presentation. Placenta: Anterior placenta. BIOPHYSICAL PROFILE: Breathin/2 Gross body movements: 2/2 tone: 2/2 Qualitative amniotic fluid: 2/2 Biophysical Profile Score: 8/8 US/US OB BPP wo NST 18111 IMPRESSION: Biophysical profile score 8/8.
[2021-11-15 16:46] VITALS: BP 127/62; PULSE 78; TEMP 36.3
[2021-11-15 17:07] VITALS: BP 134/103; PULSE 80
[2021-11-15 17:09] VITALS: BP 138/65; PULSE 77
[2021-11-15 17:26] VITALS: BP 127/64; PULSE 66
[2021-11-15 17:40] VITALS: BP 127/64; PULSE 66; RESP 15; TEMP 36.7
[2021-11-22 09:33] LABS: Quest SARS-CoV-2 RNA NOT DETECTED (NOT DETECTED)
== END 2021-11-15 17:42 | disposition home or self-care (01) ==
LOC: OPOB 16:34 → OBGYN 16:39
PROVIDERS: PCP Nurse Practitioner Family; Visit Provider Obstetrics & Gynecology
DX: O36.8190 Decreased fetal movements, unspecified trimester, not applicable or unspecified (principal); Z3A.00 Weeks of gestation of pregnancy not specified
CPT/HCPCS: 59025; 76819; 99211

== ENCOUNTER → 2021-11-20 14:29 | Outpatient (BNVA) | payer OTHER, MEDICAID, SELFPAY | PROVIDERS: PCP Nurse Practitioner Family; Visit Provider Obstetrics & Gynecology | DX: Z34.90 Encounter for supervision of normal pregnancy, unspecified, unspecified trimester (principal) | CPT/HCPCS: 84315; 87635 ==

== ENCOUNTER → 2021-11-24 13:30 | Outpatient (BNVA) | payer OTHER, MEDICAID, SELFPAY | PROVIDERS: PCP Nurse Practitioner Family; Visit Provider Obstetrics & Gynecology | DX: Z34.80 Encounter for supervision of other normal pregnancy, unspecified trimester (principal) | CPT/HCPCS: 84315; 87635 ==

== ENCOUNTER 2021-11-29 17:05 | Inpatient (IN) | payer OTHER, MEDICAID, SELFPAY ==
[2021-11-29 17:00] VITALS: RESP 18; BMI 37.0
[2021-11-29 17:18] VITALS: BP 120/80; PULSE 84
[2021-11-29 17:38] VITALS: BP 126/77; PULSE 77
[2021-11-29 17:58] VITALS: BP 126/76; PULSE 69
[2021-11-29 18:08] VITALS: BP 126/76; PULSE 69
== END 2021-11-29 18:10 | DRG 998 ==
PROVIDERS: Admitting Provider Obstetrics & Gynecology; PCP Nurse Practitioner Family; Visit Provider Obstetrics & Gynecology
DX: O75.9 Complication of labor and delivery, unspecified (principal)
CPT/HCPCS: 59025; 99211

== ENCOUNTER 2021-11-30 04:51 | Inpatient (IN) | payer OTHER, MEDICAID, SELFPAY ==
[2021-11-30] VITALS (62 sets, daily range): BP systolic 117–228; BP diastolic 59–95; PULSE 55–148; RESP 15–18; TEMP 36.7–37; O2SAT 81–100; BMI 37.0
[2021-11-30 06:35] LABS: Basophils % 0.3 %; Eosinophils # 0.1 10^3/uL (0.0-0.8); Eosinophils % 0.9 %; Hematocrit 33.4 % (37.0-47.0); Hemoglobin 11.2 g/dL (11.5-15.3); Lymphocytes # 1.8 10^3/uL (0.8-4.8); Lymphocytes % 23.7 %; Mean Corpuscular HGB Conc 33.5 g/dL (30.0-36.0); Mean Corpuscular Hemoglobin 30.9 pg (28.0-34.0); Mean Corpuscular Volume 92.3 fl (81-99); Mean Platelet Volume 12.2 fL (7.4-10.4); Monocytes # 0.5 10^3/uL (0.2-0.9); Monocytes % 7.1 %; Neutrophils # 5.14 10^3/uL (1.8-7.7); Neutrophils % 67.6 %; Nucleated Red Blood Cells % 0 %; Platelet Count 177 10^3/cmm (130-400); Red Blood Count 3.62 10^6/uL (4.1-5.3); Red Cell Distribution Width 12.6 % (12.1-15.1); White Blood Count 7.6 10^3/uL (4.0-10.0)
[2021-11-30] MEDS: miSOPROStol 100 mcg tablet 25 MCG VAGINAL ×3 (06:35→14:47)
--- NOTE | 2021-11-30 10:07 | PM.OPHPUD ---
Labor & Delivery H&P Update Date of Procedure: November 30, 2021 Date H&P Performed: 11/24/21 H&P update information: I have reviewed H&P completed within last 30 days and No changes to prior documentation Admission Diagnosis:
[2021-11-30] MEDS: hyDROXYzine 25 mg Capsule 50 MG PO (10:48)
--- NOTE | 2021-11-30 16:13 | PM.PN ---
Subjective Subjective: Interval history: Ms. Aldridge is a 21 year old G1 established patient with LMP of 02/16/2021, JUSTIN 11/29/2021, based on 6 week sonogram, placing her at 40+1 weeks. Comfortable Vitals/I&O/Wt Last Vital Signs Temp 98.5 F 11/30/21 12:19 Pulse 65 11/30/21 15:19 Resp 17 11/30/21 12:19 BP 135/79 11/30/21 15:19 Weight last 48 hrs Weight 94.801 kg Physical Exam Narrative: EXAM NARRATIVE: GA: Alert and oriented ?3. Lungs: Clear to auscultation bilaterally. Heart: Regular rhythm and rate. Abdomen: Gravid, full the height equals dates, nontender. DONOR RELATIONS COORDINATOR: SVE; dilation: 1 cm, effacement: 20%, station: -3, presentation: vx, membranes: intact. Extremities: no edema, no cyanosis, no calves pain. heart tracing: Basal rate: 140's bpm, Variability: moderate, Accelerations: present, Decelerations: absent, Contraction: irregular. Data : 11/30/21 06:16 A&P Assessment and plan (1) Term : Ms. Aldridge is a 21 year old G1 established patient with LMP of 02/16/2021, JUSTIN 11/29/2021, based on 6 week sonogram, placing her at 40+1 weeks. Admitted for elective induction. She hve received 2 Cytotec for cervical ripening. tracing category 1. Anticipate vaginal delivery Status: Acute Plan Continue with continuous monitoring Attestations Medical Necessity Statement*: In my professional opinion per admitting diagnosis Coding Level of Care Code Acute Displayer for Chg Fwd Diagnoses Term Z34.90
[2021-11-30] MEDS: fentaNYL 50 mcg/mL INJ 2mL IVP ×2 (18:08→19:19)
[2021-11-30] MEDS: ondansetron 2 mg/ML SDV 2 mL 4 MG IVP (18:12)
[2021-11-30] MEDS: dextrose 5%-lactated ringers 1,000 ML 125 ML IV (18:12)
[2021-11-30] MEDS: lactated ringers 1,000 ML 999 ML IV (18:54)
--- NOTE | 2021-11-30 20:03 | ANES.PREANE2 ---
Pre-Anesthetic Assessment Height/Weight: Height 1.6 m Weight 94.801 kg Temp Pulse Resp BP 98.4 F 66 15 141/68 11/30/21 18:21 11/30/21 19:48 11/30/21 19:19 11/30/21 19:48 epidural Familial anesthetic complications: none Last intake: 1600 Airway Submandibular: within normal limits Cervical ROM: within normal limits Mallampati: Class II Dentition: full Anesthetic Plan ASA status: 2 Anesthesia: Regional (specify below) (epidural) Medications/Allergies Home Medications Medication Instructions Recorded Confirmed Last Taken Type prenat.vits,jemima,vhn-xgwr-qqthf 1 tab PO DAILY 04/24/21 11/30/21 11/28/21 History 2300 doxylamine succinate 25 mg tablet 25 mg PO .hs PRN tab 05/15/21 11/30/21 11/28/21 20:00 History (Unisom (doxylamine)) ferrous sulfate 325 mg (65 mg 325 mg PO DAILY 10/19/21 11/30/21 11/29/21 History iron) tablet (FeroSul) 2300 Allergies Allergy/AdvReac Type Severity Reaction Status Date / Time No Known Allergies Allergy Verified 11/24/21 13:33 Current Medications Generic Name Dose Route Start Last Admin Trade Name Freq PRN Reason Stop Dose Admin Fentanyl 50 - 100 mcg 11/30/21 17:47 11/30/21 19:19 Fentanyl 50 Mcg/Ml Inj 2ml IVP 50 mcg Q1H PRN Administration SEVERE PAIN Hydroxyzine Pamoate 50 mg 11/30/21 05:25 11/30/21 10:48 Hydroxyzine 25 Mg Capsule PO 50 mg QID PRN Administration sleep, agitation or itching Dextrose/Lactated Ringer's 1,000 mls @ 125 mls/hr 11/30/21 05:25 11/30/21 18:54 Dextrose 5%-Lactated Ringers IV 0 mls/hr .Q8H PRN Infusion per label comments Dextrose/Lactated Ringer's 1,000 mls @ 125 mls/hr 11/30/21 05:30 11/30/21 18:20 Dextrose 5%-Lactated Ringers IV Not Given .Q8H JONN Lactated Ringer's 1,000 mls @ 999 mls/hr 11/30/21 18:49 11/30/21 18:54 Lactated Ringers IV 999 mls/hr .Q1H1M PRN Administration See label comments Ondansetron HCl 4 mg 11/30/21 05:25 11/30/21 18:12 Ondansetron 2 Mg/Ml Sdv 2 Ml IVP 4 mg Q4H PRN Administration NAUSEA AND VOMITING PFSH Anesthesia Medical History Abnormal Pap smear of cervix Irregular menstrual bleeding No pertinent past medical history Neg. Hx: HTN, DM, DVT/PE PCP: Dr. Ana Luisa Craft Surgical History History of ear surgery Family History Grandmother Diabetes maternal Hypertension maternal Family/Other Colon cancer maternal uncle Grandfather Heart disease Denies family history of Ovarian cancer Breast cancer Uterine cancer Thyroid disease Stroke Female Reproductive History Date of last menstrual period: 02/13/21 : 1 Data Anesthesia : 11/30/21 06:16 Short CBC 11/30/21 Range/Units 06:16 WBC 7.6 (4.0-10.0) 10^3/uL Hgb 11.2 L (11.5-15.3) g/dL Hct 33.4 L (37.0-47.0) % MCV 92.3 (81-99) fl Plt Count 177 (130-400) 10^3/cmm Neut % (Auto) 67.6 % Neut # (Auto) 5.14 (1.8-7.7) 10^3/uL Cardiac Studies: No Data to Display
--- NOTE | 2021-11-30 20:36 | ANES.PROC ---
Anesthesia Procedures Procedure/Date: 11/30/21 Epidural: Time Out Performed: Yes Consents Signed: Procedure Consent and NPO Consent Consent: requested by attending/covering physician, from patient, risks and benefits reviewed and patient agrees to proceed Lumbar Level: L3-L4 Epidural position: sitting Epidural procedure: sterile prep of area (betadine), 1% lidocaine to numb the area (3ml), 18 g needle, negative for paresthesia passed, neg for paresthesia, test dose given, 1.5% xylocaine 1:200k epi (5ml), 0.2% Ropivacaine bolus ml (5ml), placed PCEA, no systemic response, sterile dressing applied, L.U.D. no apparent complications and 0.2% Ropiavacaine @ mls/hr (10ml/hr)
--- NOTE | 2021-11-30 21:50 | PM.DELIVERY ---
Delivery Note: Date of delivery: November 30, 2021 - PRE-DELIVERY DIAGNOSIS: 21-year-old 1 para 0 at 40 weeks and 1 day gestation Elective induction of labor GBS negative, COVID-negative Obesity with a BMI of 37 POST-DELIVERY DIAGNOSIS: Vaginal delivery on 11/30/2021 PROCEDURE: Vaginal delivery on 11/30/2021 ANESTHESIA: Epidural anesthesia, local anesthesia with 2% lidocaine DELIVERING PHYSICIAN: Thanh Martin FACOG PRE-DELIVERY COURSE: Ms. Aldridge is a 21-year-old 1 para 0 at 40 weeks and 1 day who presented to labor and delivery at 5 AM on 11/30/2021 for scheduled induction of labor. She had an uncomplicated and desired elective induction of labor. On admission to labor and delivery she was noted to be 1 cm 50% and -3 station cephalic with a category 1 tracing and no contractions. Induction was started with Cytotec and she received a total of 3 doses of Cytotec at 6:45 AM, 10:45 AM and 2:45 PM. The last dose of Cytotec was placed at 2:45 PM after which she started in regular contractions and was a little uncomfortable. She had spontaneous rupture of membranes at 5:40 PM with clear fluid at which time she was 2 cm 80% and -2 station. She grew increasingly uncomfortable after this and pain was not well controlled with fentanyl and epidural was placed. Shortly after the epidural please place she was examined and noted to be 9 cm and progressed to fully dilated at 8:54 PM. She had suboptimal relief of pain with the epidural and had the urge to push. She was set up in lithotomy position ready to push at 9:05 PM. tracing was overall category 1 with occasional early decelerations while patient pushed. She was shani every 2 to 3 minutes spontaneously. DELIVERY NOTE: She was set up in lithotomy position and was pushing effectively. She was noted to be +3 station and continued pushing well. The head delivered in MARCIA position, no nuchal cord was present. The shoulders and rest of the body followed with her next push. The baby's mouth and nose were suctioned and the baby was placed on the mother's belly. Once cord pulsations stopped the cord was clamped and cut. The placenta delivered spontaneously intact with membranes and was discarded. The fundus was noted to be firm and well contracted. The vagina and cervix were inspected and no cervical or sulcal lacerations were noted. The perineum was intact except for a second-degree tear which had a Y-shaped extending into the vagina. This was repaired with 2-0 Vicryl on a CT1 in a continuous interlocking fashion and good hemostasis and reapproximation was obtained. Rectal exam done showed intact sphincter and mucosa. Baby girl, Brianne born at 9:14 PM on 11/30/2021 with 8/9, weighing 3310 g, 7 pounds 5 ounces, 20-1/4 inches long. Placenta was delivered spontaneously intact with membranes at 9:18 PM on 11/30/2021. Cotyledons were intact , centrally inserted umbilical cord with 3 vessels noted. Estimated blood loss 300 mL. Complications-none, both baby and mother were left to recover in a stable condition. This documentation was created by [employer] otolaryngologist software (known for inherent otolaryngologist error). Every effort was made to assure accuracy of otolaryngologist. Any obvious errors or omissions should be clarified with the author of the document. History History History 1 Term Miscarriages/Ectopic Living Children Coding Level of Care Code Acute Milling Supervisor for Basil Bowman
[2021-12-01] VITALS (19 sets, daily range): BP systolic 116–140; BP diastolic 59–88; PULSE 72–100; RESP 16; TEMP 36.4–37; O2SAT 98
[2021-12-01] MEDS: HYDROcodone-acetaminophen 5-325 mg Tablet PO ×4 (04:40→20:19)
--- NOTE | 2021-12-01 07:18 | P.PN_ITS ---
Subjective Subjective: Interval history: SUBJECTIVE: Ms. Aldridge is doing well today. She is just a little tired from feeding the baby and taking care of the baby. She states that her pain is overall pretty well controlled does have some soreness in her perineum and asked for an ice pack. She states that the ice pack that she had before definitely helped with her symptoms of discomfort. She denies heavy vaginal bleeding, fever, chills and shortness of breath. She denies headaches, blurry vision or any preeclamptic symptoms. She has no other questions or concerns today and is overall feeling fine. OBJECTIVE/PHYSICAL EXAM: Gen.: No acute distress Heart: S1-S2 heard, regular rate and rhythm Lungs: Clear to auscultation bilaterally Abdomen: Soft, fundus firm below umbilicus Legs: No calf tenderness, +1 bilateral pitting pedal edema. ASSESSMENT AND PLAN: 21-year-old 1 para 1-0-0-1 status post vaginal delivery, day #1 -Doing well-continue routine care -P.o. pain medication as needed -Follow-up CBC later today -Encourage ambulation and ice packs to the perineum. - consult to help with breast-feeding -Anticipate discharge home tomorrow as long as she continues to do well -Elevated blood pressures during active labor secondary to poor pain control and blood pressures overall improved overnight. We will continue to monitor it and if persistently elevated consider preeclampsia work-up and patient understands this. She is asymptomatic at this point and overall feels fine and much better than when she was having a baby. Vitals/I&O/Wt Last Vital Signs Temp 98.4 F 11/30/21 18:21 Pulse 88 12/01/21 02:27 Resp 15 11/30/21 19:19 BP 134/64 12/01/21 02:14 Pulse Ox 100 11/30/21 23:43 11/30/21 12/01/21 12/01/21 22:59 06:59 14:59 Intake Total 87.5 / 87.5 Balance 87.5 / 87.5 Weight last 48 hrs Weight 209 lb Data : 11/30/21 06:16 Attestations Medical Necessity Statement*: Patient needs to stay 1-2 more midnights to recover from delivery Coding Level of Care Code Acute Numerical Control Programmer for Chg Colby
--- NOTE | 2021-12-01 08:09 | ANE.PACU2 ---
Inpatient post-anesthesia follow up: Airway intact: Yes Vital signs: Temperature 98.4 F Pulse Rate 88 Respiratory Rate 16 Blood Pressure 134/64 Pulse Oximetry 100 Oxygen Delivery Me thod Room Air Oxygen Flow Rate Fraction of Inspir ed Oxygen Hydration adequate: Yes Nausea and vomiting: No Pain level: 4 Mental status: Baseline
[2021-12-01] MEDS: ibuprofen 800 mg tablet PO ×3 (08:10→20:18)
[2021-12-01] MEDS: prenatal vitamin Capsule 1 CAP PO (08:10)
[2021-12-01] MEDS: docusate sodium 100 mg Capsule PO ×2 (08:10→20:19)
[2021-12-01 11:07] LABS: Hemoglobin 9.9 g/dL (11.5-15.3); Mean Corpuscular HGB Conc 34.1 g/dL (30.0-36.0); Mean Corpuscular Hemoglobin 31.9 pg (28.0-34.0); Mean Corpuscular Volume 93.5 fl (81-99); Platelet Count 137 10^3/cmm (130-400); Red Cell Distribution Width 12.7 % (12.1-15.1); White Blood Count 11.6 10^3/uL (4.0-10.0)
[2021-12-01] MEDS: lanolin oint 7 gm 1 APPLIC TOPICAL (16:52)
[2021-12-01] MEDS: benzocaine-menthol 78 gm Canister 1 SPRAY TOPICAL (16:52)
[2021-12-02] VITALS (11 sets, daily range): BP systolic 107–140; BP diastolic 68–83; PULSE 95–125; RESP 16–20; TEMP 36.8–39.3; O2SAT 98
[2021-12-02] MEDS: HYDROcodone-acetaminophen 5-325 mg Tablet PO (02:04)
[2021-12-02] MEDS: acetaminophen 500 mg Tablet 1000 MG PO (05:38)
[2021-12-02 05:46] LABS: Basophils % 0.2 %; Eosinophils # 0.1 10^3/uL (0.0-0.8); Eosinophils % 0.6 %; Hematocrit 26.8 % (37.0-47.0); Lymphocytes # 0.3 10^3/uL (0.8-4.8); Lymphocytes % 3.3 %; Mean Corpuscular HGB Conc 33.6 g/dL (30.0-36.0); Mean Corpuscular Hemoglobin 31.7 pg (28.0-34.0); Mean Corpuscular Volume 94.4 fl (81-99); Mean Platelet Volume 11.2 fL (7.4-10.4); Monocytes # 0.4 10^3/uL (0.2-0.9); Monocytes % 4.8 %; Neutrophils # 7.99 10^3/uL (1.8-7.7); Neutrophils % 90.4 %; Nucleated Red Blood Cells % 0 %; Platelet Count 108 10^3/cmm (130-400); Red Blood Count 2.84 10^6/uL (4.1-5.3); Red Cell Distribution Width 13.1 % (12.1-15.1); White Blood Count 8.8 10^3/uL (4.0-10.0)
[2021-12-02 06:13] LABS: Influenza A by IFA Negative (Negative); Influenza B by IFA Negative (Negative)
[2021-12-02] MEDS: docusate sodium 100 mg Capsule PO ×2 (10:01→19:04)
[2021-12-02] MEDS: prenatal vitamin Capsule 1 CAP PO (10:01)
--- NOTE | 2021-12-02 12:15 | XR_ITS ---
WS: [id number] PORTABLE CHEST HISTORY: fever COMPARISON: None available. Lungs are clear and well expanded. No pleural effusion or pneumothorax. Cardiac size: Normal. Mediastinum/Aorta: Normal mediastinum. No osseous abnormality seen. XR/XR chest 1V portable [id number] IMPRESSION: Unremarkable portable chest.
[2021-12-02] MEDS: ampicillin 2,000 MG in sodium chloride 0.9% (plus) 50 ML 100 MG IV ×2 (13:15→19:04)
[2021-12-02] MEDS: acetaminophen 325 mg Tablet 650 MG PO (13:28)
[2021-12-02] MEDS: lactated ringers 1,000 ML 125 ML IV (13:30)
[2021-12-02 14:00] LABS: Basophils # 0.1 10^3/uL (0.0-0.1); Basophils % 0.9 %; Eosinophils % 0.4 %; Hematocrit 28.9 % (37.0-47.0); Hemoglobin 10.3 g/dL (11.5-15.3); Lymphocytes # 0.3 10^3/uL (0.8-4.8); Lymphocytes % 3.4 %; Mean Corpuscular HGB Conc 35.6 g/dL (30.0-36.0); Mean Corpuscular Hemoglobin 31.9 pg (28.0-34.0); Mean Corpuscular Volume 89.5 fl (81-99); Mean Platelet Volume 12.5 fL (7.4-10.4); Monocytes # 0.3 10^3/uL (0.2-0.9); Monocytes % 3.4 %; Neutrophils # 8.25 10^3/uL (1.8-7.7); Neutrophils % 91.1 %; Nucleated Red Blood Cells % 0.2 %; Platelet Count 109 10^3/cmm (130-400); Red Blood Count 3.23 10^6/uL (4.1-5.3); Red Cell Distribution Width 13.2 % (12.1-15.1); White Blood Count 9.1 10^3/uL (4.0-10.0)
--- NOTE | 2021-12-02 14:09 | P.PN_ITS ---
Subjective Subjective: Interval history: SUBJECTIVE: Rebekah is doing okay today. She reported feeling warm early this morning and at about 4:45 AM was noted to have a fever over 100.5. She did reported having some chills. She denies nausea, vomiting, shortness of breath or chest pain. She denies any urinary symptoms or bowel symptoms. Is passing flatus but has not yet had a bowel movement. She reports that she does have some discomfort in her perineum but it is not out of the ordinary. She is breast-feeding without any difficulty and denies any redness or swelling in her breast. Reports some soreness at the epidural site but it is better than the day before. She is not sure why she is sick. COVID and testing positive for this about 1 month ago. Denies any other concerns Risal reports having minimal to moderate bleeding. OBJECTIVE/PHYSICAL EXAM: Gen.: No acute distress Heart: S1-S2 heard, regular rate and rhythm Lungs: Clear to auscultation bilaterally Breast: Soft, nontender, no mastitis, no cracked nipples, no areas of clogged duct. Abdomen: Soft, fundus firm below umbilicus, nontender Back: No CVA tenderness, epidural site appears normal without any redness swell ing or erythema. Legs: No calf tenderness, pedal edema. ASSESSMENT AND PLAN: 21-year-old 1 para 1 status post vaginal delivery on 11/30/2021, day #2 -Fever of unknown origin--differential diagnosis UTI, flu, endometritis, viral infection although no localizing signs at this time. -CBC drawn and results pending, flu swab done and negative, patient is prev iously had Covid and so no point in testing and patient has no respiratory symptoms at this time. Straight cath urine culture also sent at this time. -We will do chest x-ray as well just to rule out any pulmonary symptoms. -Isolation precautions until we figure out source of infection. -We will stop all antibiotics at this time and switch to Dilaudid for pain to see if she has a higher fever. If she spikes a higher fever then will probably start on antibiotics for endometritis pending results -Patient is mildly tachycardic likely secondary to the fever. She denies dionicio rtness of breath and chest pain. If tachycardia persists despite effervescence we will consider getting an EKG -Discussed with patient thought process and differential diagnosis. Discussed if she stands antibiotics then will need antibiotics at least 24 hours afebrile and then 24 hours of monitoring beyond that extending her stay and she understands this. All her and her partner's questions were answered. This documentation was created by [employer] wood pattern maker software (known for inherent wood pattern maker error). Every effort was made to assure accuracy of wood pattern maker. Any obvious errors or omissions should be clarified with the author of the document. Vitals/I&O/Wt Last Vital Signs Temp 100.2 F H 12/02/21 06:39 Pulse 115 H 12/02/21 04:30 Resp 18 12/02/21 10:02 BP 140/83 12/02/21 04:30 Pulse Ox 98 12/02/21 04:30 Physical Exam Urinary Catheter Management: Bales Latex: Cath Placed During This Visit: yes, but has since been removed by the nurse Reason for Continuing Indwelling Catheter: Other Urinary Catheter Date of Insertion: 11/30/21 Urinary Catheter Time of Insertion: 20:40 Date Urinary Catheter Removed: 11/30/21 Time Urinary Catheter Discontinued: 21:04 Data : 12/03/21 05:00 12/03/21 05:00 Micro: Microbiology 12/02/21 13:00 Blood Culture - Preliminary Blood SPECIMEN COLLECTED 12/02/21 12:50 Blood Culture - Preliminary Blood SPECIMEN COLLECTED Attestations Medical Necessity Statement*: Patient will need to stay for possibly 2-3 more midnights to monitor fever Coding Level of Care Code Acute Centerpuncher for Basil Bowman
[2021-12-02] MEDS: clindamycin 900 MG/50 ML PREMIX 100 MG IV (14:14)
[2021-12-02] MEDS: GENTAMICIN IV (14:14)
[2021-12-02] MEDS: SODIUM CHLORIDE 0.9% IV (14:14)
[2021-12-02] MEDS: lactated ringers 1,000 ML 125 ML (14:14)
[2021-12-02] MEDS: ibuprofen 800 mg tablet PO ×2 (14:43→20:49)
[2021-12-02 15:23] LABS: Alanine Aminotransferase 12 U/L (0-33); Alkaline Phosphatase 99 IU/L (35-105); Anion Gap 16.3 (5-19); Aspartate Amino Transferase 14 U/L (0-32); Blood Urea Nitrogen 7 mg/dL (6-20); Calcium 8.5 mg/dL (8.5-10.5); Carbon Dioxide 20 mmol/L (22-29); Chloride 101 mmol/L (98-107); Creatinine Clr Calc Pharmacy 159.6734; Globulin 2.8 g/dL (1.3-4.6); Glomerular Filtration Rate 123.9 mL/min (90-130); Glucose 111 mg/dL (65-115); Osmolality Calculated 277 mOsm/kg (285-295); Potassium 3.3 mmol/L (3.5-5.1); Sodium 134 mmol/L (136-145); Total Bilirubin 0.3 mg/dL (0.15-1.2); Total Protein 5.8 g/dL (6.6-8.7)
[2021-12-03] VITALS (15 sets, daily range): BP systolic 109–125; BP diastolic 63–82; PULSE 83–120; RESP 16–20; TEMP 36.7–38.8; O2SAT 97–98
[2021-12-03] MEDS: ampicillin 2,000 MG in sodium chloride 0.9% (plus) 50 ML 100 MG IV ×4 (00:47→19:34)
[2021-12-03 05:18] LABS: Basophils % 0.3 %; Eosinophils # 0.1 10^3/uL (0.0-0.8); Eosinophils % 1.3 %; Hematocrit 26.8 % (37.0-47.0); Hemoglobin 8.7 g/dL (11.5-15.3); Lymphocytes # 0.3 10^3/uL (0.8-4.8); Lymphocytes % 5.2 %; Mean Corpuscular HGB Conc 32.5 g/dL (30.0-36.0); Mean Corpuscular Hemoglobin 31.1 pg (28.0-34.0); Mean Corpuscular Volume 95.7 fl (81-99); Mean Platelet Volume 12.1 fL (7.4-10.4); Monocytes # 0.3 10^3/uL (0.2-0.9); Monocytes % 5.2 %; Neutrophils # 5.52 10^3/uL (1.8-7.7); Neutrophils % 87.2 %; Nucleated Red Blood Cells % 0 %; Platelet Count 93 10^3/cmm (130-400); Red Cell Distribution Width 13.3 % (12.1-15.1); White Blood Count 6.3 10^3/uL (4.0-10.0)
[2021-12-03] MEDS: acetaminophen 325 mg Tablet 650 MG PO ×2 (05:43→17:22)
[2021-12-03 05:51] LABS: Alanine Aminotransferase 11 U/L (0-33); Albumin Level 2.9 g/dL (3.5-5.2); Alkaline Phosphatase 103 IU/L (35-105); Anion Gap 14.7 (5-19); Aspartate Amino Transferase 15 U/L (0-32); Blood Urea Nitrogen 9 mg/dL (6-20); Calcium 8.1 mg/dL (8.5-10.5); Carbon Dioxide 23 mmol/L (22-29); Chloride 104 mmol/L (98-107); Globulin 2.6 g/dL (1.3-4.6); Glomerular Filtration Rate 152.9 mL/min (90-130); Glucose 91 mg/dL (65-115); Osmolality Calculated 284 mOsm/kg (285-295); Potassium 3.7 mmol/L (3.5-5.1); Sodium 138 mmol/L (136-145); Total Bilirubin 0.2 mg/dL (0.15-1.2); Total Protein 5.5 g/dL (6.6-8.7)
[2021-12-03] MEDS: ibuprofen 800 mg tablet PO ×3 (08:26→21:19)
[2021-12-03] MEDS: docusate sodium 100 mg Capsule PO ×2 (08:26→17:12)
[2021-12-03] MEDS: prenatal vitamin Capsule 1 CAP PO (08:26)
--- NOTE | 2021-12-03 10:06 | PM.PN ---
Subjective Subjective: Interval history: SUBJECTIVE: Rebekah is feeling overall a little better than yesterday in terms of the fever since starting antibiotics. She does report her perineum hurts a little bit more but she is but was pretty active yesterday in terms of walking about. Other than that she is doing good. She has questions about her fever. She does report some hesitancy passing urine but thought that this was normal after delivery. She denies dysuria. She denies chills at this time. She denies shortness of breath or chest pain. States her milk came in this morning and she leaked all over her gown and wants to shower. OBJECTIVE/PHYSICAL EXAM: Gen.: No acute distress Heart: S1-S2 heard, regular rate and rhythm Lungs: Clear to auscultation bilaterally Abdomen: Soft, fundus firm below umbilicus, Perineum: No swelling, tenderness-no swelling interiorly and rectal exam intact. Legs: No calf tenderness, trace bilateral pitting pedal edema. ASSESSMENT AND PLAN: 21-year-old 1 para 1, status post vaginal delivery on 11/30/2021, day #3 - fever--differential diagnosis endometritis and has been started on broad-spectrum antibiotics ampicillin gentamicin with a single dose of clindamycin given at around noon on 12/02/2021. -T-max was 102.8 at noon on 12/02/2020. Patient is receiving Tylenol as needed. Patient had another fever at 530 this morning of 101.8. -CBC shows a normal white count and hemoglobin essentially stable at 8.4. Mild thrombocytopenia stable at 93,000-we will continue to monitor this. -CMP was normal yesterday with normal BUN and creatinine-mild hypokalemia which resolved with IV fluids and this morning's potassium was normal. -Chest x-ray yesterday was negative and flu was negative as well. Blood cultures pending. -Urine culture this morning shows greater than 100,000 Staphylococcus so likely cystitis/UTI is the reason for fever. Will await final culture and results and adjust antibiotics as needed-ampicillin and gentamicin should cover Staphylococcus. -Since patient had a fever today she would likely end up staying till Tuesday is afebrile on antibiotics and to await final urine culture. -Perineal exam and rectal exam normal and no swelling internally concerning for hematoma/abscess. -This plan was discussed with patient and. All her questions were answered and they agree with the current plan of care. -Cancel isolation precautions since likely cystitis is cause of fever Vitals/I&O/Wt Last Vital Signs Temp 98.2 F 12/03/21 08:25 Pulse 109 H 12/03/21 08:25 Resp 18 12/03/21 08:26 BP 119/76 12/03/21 08:25 Pulse Ox 97 12/03/21 08:26 12/02/21 12/03/21 12/03/21 22:59 06:59 14:59 Intake Total 912.5 / 962.5 50 / 1012.5 Balance 912.5 / 962.5 50 / 1012.5 Physical Exam Urinary Catheter Management: Bales Latex: Cath Placed During This Visit: yes, but has since been removed by the nurse Reason for Continuing Indwelling Catheter: Other Urinary Catheter Date of Insertion: 11/30/21 Urinary Catheter Time of Insertion: 20:40 Date Urinary Catheter Removed: 11/30/21 Time Urinary Catheter Discontinued: 21:04 Data : 12/04/21 04:50 12/04/21 04:50 Micro: Microbiology 12/02/21 05:45 Urine Culture - Preliminary Urine Catheterized Staphylococcus species 12/02/21 13:00 Blood Culture - Preliminary Blood SPECIMEN COLLECTED 12/02/21 12:50 Blood Culture - Preliminary Blood SPECIMEN COLLECTED Attestations Medical Necessity Statement*: Patient was need to stay 1-2 more midnights to recover from this fever and receive IV antibiotics Coding Level of Care Code Acute Greeting Card Maker for Basil Bowman
[2021-12-03 14:00] LABS: Bacillus cereus group Not Detected (NOT DETECT); Bacillus subtillis group Not Detected (NOT DETECT); Corynebacterium Not Detected (NOT DETECT); Cutibacterium acnes (P.acnes) Not Detected (NOT DETECT); Enterococcus Not Detected (NOT DETECT); Enterococcus faecalis Not Detected (NOT DETECT); Enterococcus faecium Not Detected (NOT DETECT); Lactobacillus species Not Detected (NOT DETECT); Listeria Not Detected (NOT DETECT); Listeria monocytogenes Not Detected (NOT DETECT); Micrococcus Not Detected (NOT DETECT); Pan Candida Not Detected (NOT DETECT); Pan Gram-Negative Not Detected (NOT DETECT); Staphylococcus epidermidis Not Detected (NOT DETECT); Staphylococcus lugdunensis Not Detected (NOT DETECT); Staphylococcus species Detected (NOT DETECT); Streptococcus agalactiae Not Detected (NOT DETECT); Streptococcus anginosus group Not Detected (NOT DETECT); Streptococcus pneumoniae Not Detected (NOT DETECT); Streptococcus pyogenes Not Detected (NOT DETECT); Streptococcus species Not Detected (NOT DETECT); mecA Not Detected (NOT DETECT); mecC Not Detected (NOT DETECT)
[2021-12-03] MEDS: SODIUM CHLORIDE 0.9% IV (14:19)
[2021-12-03] MEDS: GENTAMICIN IV (14:19)
[2021-12-03] MEDS: ferrous sulfate EC 325 mg Tablet PO (17:12)
[2021-12-03 17:51] LABS: Basophils % 0.3 %; Eosinophils # 0.1 10^3/uL (0.0-0.8); Eosinophils % 1.7 %; Hematocrit 26.2 % (37.0-47.0); Hemoglobin 8.7 g/dL (11.5-15.3); Lymphocytes # 0.5 10^3/uL (0.8-4.8); Lymphocytes % 8.3 %; Mean Corpuscular HGB Conc 33.2 g/dL (30.0-36.0); Mean Corpuscular Hemoglobin 31.4 pg (28.0-34.0); Mean Corpuscular Volume 94.6 fl (81-99); Monocytes # 0.3 10^3/uL (0.2-0.9); Monocytes % 5.1 %; Neutrophils # 4.98 10^3/uL (1.8-7.7); Neutrophils % 84.1 %; Nucleated Red Blood Cells % 0 %; Platelet Count 105 10^3/cmm (130-400); Red Blood Count 2.77 10^6/uL (4.1-5.3); Red Cell Distribution Width 13.2 % (12.1-15.1); White Blood Count 5.9 10^3/uL (4.0-10.0)
[2021-12-03] MEDS: nystatin 100,000 unit/mL UDC 5 mL 400000 UNIT PO (21:19)
[2021-12-04] VITALS (12 sets, daily range): BP systolic 101–130; BP diastolic 69–87; PULSE 72–101; RESP 17–28; TEMP 36.6–37.4; O2SAT 96–98
[2021-12-04] MEDS: ampicillin 2,000 MG in sodium chloride 0.9% (plus) 50 ML 100 MG IV ×3 (00:30→12:38)
[2021-12-04 04:59] LABS: Basophils % 0.2 %; Eosinophils # 0.2 10^3/uL (0.0-0.8); Eosinophils % 3.2 %; Hematocrit 25.8 % (37.0-47.0); Hemoglobin 8.5 g/dL (11.5-15.3); Lymphocytes # 0.6 10^3/uL (0.8-4.8); Lymphocytes % 11.5 %; Mean Corpuscular HGB Conc 32.9 g/dL (30.0-36.0); Mean Corpuscular Hemoglobin 31.3 pg (28.0-34.0); Mean Corpuscular Volume 94.9 fl (81-99); Mean Platelet Volume 11.6 fL (7.4-10.4); Monocytes # 0.3 10^3/uL (0.2-0.9); Monocytes % 6.7 %; Neutrophils # 3.86 10^3/uL (1.8-7.7); Neutrophils % 77.8 %; Nucleated Red Blood Cells % 0 %; Platelet Count 117 10^3/cmm (130-400); Red Blood Count 2.72 10^6/uL (4.1-5.3); Red Cell Distribution Width 13.2 % (12.1-15.1)
[2021-12-04 05:42] LABS: Alanine Aminotransferase 17 U/L (0-33); Alkaline Phosphatase 91 IU/L (35-105); Anion Gap 17.7 (5-19); Aspartate Amino Transferase 17 U/L (0-32); Blood Urea Nitrogen 10 mg/dL (6-20); Calcium 8.9 mg/dL (8.5-10.5); Carbon Dioxide 21 mmol/L (22-29); Chloride 104 mmol/L (98-107); Globulin 2.7 g/dL (1.3-4.6); Glomerular Filtration Rate 197.8 mL/min (90-130); Glucose 85 mg/dL (65-115); Osmolality Calculated 286 mOsm/kg (285-295); Potassium 3.7 mmol/L (3.5-5.1); Sodium 139 mmol/L (136-145); Total Bilirubin 0.2 mg/dL (0.15-1.2); Total Protein 5.7 g/dL (6.6-8.7)
[2021-12-04] MEDS: nystatin 100,000 unit/mL UDC 5 mL 400000 UNIT PO ×4 (09:06→21:22)
[2021-12-04] MEDS: ibuprofen 800 mg tablet PO ×3 (09:07→21:22)
[2021-12-04] MEDS: docusate sodium 100 mg Capsule PO ×2 (09:07→17:35)
[2021-12-04] MEDS: prenatal vitamin Capsule 1 CAP PO (09:07)
[2021-12-04] MEDS: ferrous sulfate EC 325 mg Tablet PO ×2 (09:07→17:35)
--- NOTE | 2021-12-04 10:43 | PM.PN ---
Subjective Subjective: Interval history: SUBJECTIVE: Ms. Aldridge is doing well today. Denies any fever chills shortness of breath chest pain nausea or vomiting. Still has some perineal soreness but nothing significant and she overall feels better than she did yesterday. Is breast-feeding without any difficulty and denies any signs of mastitis/cracked nipples. She reports minimal bleeding. Denies any urinary or bowel problems. Has not yet had a bowel movement. Hope she does not have any more fevers OBJECTIVE/PHYSICAL EXAM: Gen.: No acute distress Heart: S1-S2 heard, regular rate and rhythm Lungs: Clear to auscultation bilaterally Abdomen: Soft, fundus firm below umbilicus, Legs: No calf tenderness, trace bilateral pitting pedal edema. ASSESSMENT AND PLAN: 21-year-old 1 para 1, status post vaginal delivery on 11/30/2021, day #4 - fever--likely cystitis-given positive urine culture-other differential endometritis-continue ampicillin and gentamicin until culture results are final -T-max was 102.8 at noon on 12/02/2020.? Patient is receiving Tylenol as needed.? Patient had another fever at 5:30 PM of 100.9 on 12/03/2021. -CBC this morning continues to show stable white count and hemoglobin stable at 8.5. Platelets also stable at 1 15,000. -CMP was normal this morning -Chest x-ray yesterday was negative and flu was negative as well.? Blood cultures show 1 to growing Staphylococcus likely contaminants given the second tube is negative thus far--final results still pending -Urine culture this morning shows greater than 100,000 Staphylococcus so likely cystitis/UTI is the reason for fever.? Will await final culture and results and adjust antibiotics as needed-ampicillin and gentamicin should cover Staphylococcus unless MRSA -Since patient had a fever today she will likely end up staying till Tuesday -24 hours afebrile on antibiotics and to await final urine culture. -Continue to monitor Vitals/I&O/Wt Last Vital Signs Temp 98.1 F 12/04/21 08:36 Pulse 101 H 12/04/21 08:36 Resp 28 H 12/04/21 08:36 BP 124/81 12/04/21 08:36 Pulse Ox 97 12/04/21 08:36 12/03/21 12/04/21 12/04/21 22:59 06:59 14:59 Intake Total 943.00 / 993.00 50 / 1043.00 Balance 943.00 / 993.00 50 / 1043.00 Physical Exam Urinary Catheter Management: Bales Latex: Cath Placed During This Visit: yes, but has since been removed by the nurse Reason for Continuing Indwelling Catheter: Other Urinary Catheter Date of Insertion: 11/30/21 Urinary Catheter Time of Insertion: 20:40 Date Urinary Catheter Removed: 11/30/21 Time Urinary Catheter Discontinued: 21:04 Data : 12/04/21 04:50 12/04/21 04:50 Micro: Microbiology 12/02/21 13:00 Blood Culture - Preliminary Blood Staphylococcus sp coag neg 12/02/21 12:50 Blood Culture - Preliminary Blood NEGATIVE TO DATE 12/02/21 05:45 Urine Culture - Preliminary Urine Catheterized Staphylococcus species Attestations Medical Necessity Statement*: Patient will need to stay 1-2 more midnights to recover from infection Coding Level of Care Code Acute Sales Planning Coordinator for Basil Bowman
[2021-12-04] MEDS: GENTAMICIN IV (14:01)
[2021-12-04] MEDS: SODIUM CHLORIDE 0.9% IV (14:01)
[2021-12-04] MEDS: nitrofurantoin SR (BID) 100 mg Capsule PO (18:34)
[2021-12-05] VITALS (7 sets, daily range): BP systolic 118–124; BP diastolic 79–80; PULSE 69–90; RESP 16–17; TEMP 36.6–36.8; O2SAT 97
[2021-12-05] MEDS: ferrous sulfate EC 325 mg Tablet PO (07:43)
[2021-12-05] MEDS: docusate sodium 100 mg Capsule PO (07:43)
[2021-12-05] MEDS: nitrofurantoin SR (BID) 100 mg Capsule PO (09:03)
[2021-12-05] MEDS: SODIUM CHLORIDE 0.9% IV (09:04)
[2021-12-05] MEDS: GENTAMICIN IV (09:04)
[2021-12-05] MEDS: nystatin 100,000 unit/mL UDC 5 mL 400000 UNIT PO (09:04)
[2021-12-05] MEDS: prenatal vitamin Capsule 1 CAP PO (09:05)
--- NOTE | 2021-12-05 14:27 | P.DS_ITS ---
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 Date of Admission: 11/30/21 04:51 Date of Discharge: 12/05/21 Attending Provider at Admission: Enoch De Jesus MD Attending Provider at Discharge: Thanh Martin MD PRE-DELIVERY DIAGNOSIS: 21-year-old 1 para 0 at 40 weeks and 1 day gestation Elective induction of labor GBS negative, COVID-negative Obesity with a BMI of 37 POST-DELIVERY DIAGNOSIS: Vaginal delivery on 11/30/2021 Fever likely cystitis from MRSA for which patient received antibiotics PROCEDURE: Vaginal delivery on 11/30/2021 ANESTHESIA: Epidural anesthesia, local anesthesia with 2% lidocaine DELIVERING PHYSICIAN: Thanh Martin FACOG PRE-DELIVERY COURSE: Ms. Aldridge is a 21-year-old 1 para 0 at 40 weeks and 1 day who presented to labor and delivery at 5 AM on 11/30/2021 for scheduled induction of labor.? She had an uncomplicated and desired elective induction of labor.? On admission to labor and delivery she was noted to be 1 cm 50% and -3 station cephalic with a category 1 tracing and no contractions.? Induction was started with Cytotec and she received a total of 3 doses of Cytotec at 6:45 AM, 10:45 AM and 2:45 PM.? The last dose of Cytotec was placed at 2:45 PM after which she started in regular contractions and was a little uncomfortable.? She had spontaneous rupture of membranes at 5:40 PM with clear fluid at which time she was 2 cm 80% and -2 station.? She grew increasingly uncomfortable after this and pain was not well controlled with fentanyl and epidural was placed.? Shortly after the epidural please place she was examined and noted to be 9 cm and progressed to fully dilated at 8:54 PM.? She had suboptimal relief of pain with the epidural and had the urge to push.? She was set up in lithotomy position ready to push at 9:05 PM.? tracing was overall category 1 with occasional early decelerations while patient pushed.? She was shani every 2 to 3 minutes spontaneously. DELIVERY? NOTE: She was set up in lithotomy position and was pushing effectively. She was noted to be? +3 station and continued pushing well. The head delivered in MARCIA position, no nuchal cord was present. The shoulders and rest of the body followed with her next push. The baby's mouth and nose were suctioned and the baby was placed on the mother's belly.? Once cord pulsations stopped the cord was clamped and cut.? The placenta delivered spontaneously intact with membranes and was discarded. The fundus was noted to be firm and well contracted. The vagina and cervix were inspected and no cervical or sulcal lacerations were noted.? The perineum was intact except for a second-degree tear which had a Y- shaped extending into the vagina.? This was repaired with 2-0 Vicryl on a CT1 in a continuous interlocking fashion and good hemostasis and reapproximation was obtained.? Rectal exam done showed intact sphincter and mucosa. Baby girl, Brianne born at 9:14 PM on 11/30/2021 with 8/9, weighing 3310 g, 7 pounds 5 ounces, 20-1/4 inches long. Placenta was delivered spontaneously intact with membranes at 9:18 PM on 11/30/2021.? Cotyledons were intact , centrally inserted umbilical cord with 3 vessels noted. Estimated blood loss 300 mL. Complications-none, both baby and mother were left to recover in a stable condition. HOSPITAL COURSE: She underwent an uncomplicated vaginal delivery on 11/30/2021. She did well on day 0 and was ambulating well, tolerating regular diet, voiding freely, passing flatus. She was breast-feeding without difficulty and bonding well with her daughter. Pain was well-controlled with by mouth pain medication. She denied nausea, vomiting, fever, chills, shortness of breath, leg pain. She had moderate vaginal bleeding. On day # 1 she continued to do well with stable vital signs and stable hemoglobin at 9.9. On day #2-12/02/2021 she had a mild fever of 100.5. All antipyretics were stopped and she was observed and she had a fever of 102.5 at noon the same day. Chest x-ray was performed and normal and flu test was negative. CBC was done and white count was overall stable and so was hemoglobin. Platelets were low at 108 but just minimally low up from predelivery values. She had no localizing symptoms and no obvious signs of endometritis and exam was normal. Given the fever and her recent delivery she was started on antibiotics for endometritis and urine culture and blood cultures were sent as well. She was given ampicillin and gentamicin. On day #3 and 4 she continued to do well and continued to have fevers however nothing more than the T-max of 102.5. During this time urine culture came back as MRSA which was sensitive to the gentamicin and Macrobid and she was started on Macrobid as well. Antibiotics were discontinued on 12/04/2021 after 24 hours of being afebrile to complete treatment for possible endometritis as well. Daily white counts were done which were stable and platelet count was also stable at 117 prior to discharge. She was anemic with a stable hemoglobin of 8.5 upon discharge. She did have SCDs on while in bed for DVT prophylaxis however was ambulating well. Vital signs were stable throughout except for mild tachycardia for when she was febrile. On day of discharge vital signs were all within normal limits. She did develop thrush and was given nystatin swishes. She was discharged home on day 5 in a stable condition. Warning signs for endometritis, mastitis, DVT/PE were reviewed with her. Since she is breast- feeding she was sent home with Macrobid. Post delivery activity restrictions were also reviewed with her at all her questions were answered to her satisfaction. She will finalize her contraceptive plan with Dr. De Jesus when she sees him in the clinic. EXAM AT DISCHARGE: Gen.: No acute distress Heart: S1-S2 heard, regular rate and rhythm Lungs: Clear to auscultation bilaterally Abdomen: Soft, fundus firm below umbilicus Legs: No calf tenderness, trace bilateral pitting pedal edema. CONDITION AT DISCHARGE: Stable This documentation was created by [employer] oil field roustabout software (known for inherent oil field roustabout error). Every effort was made to assure accuracy of oil field roustabout. Any obvious errors or omissions should be clarified with the author of the document. Primary Care Provider: Ana Luisa Craft Diagnoses at Discharge Discharge Diagnosis (1) Term : Status: Acute Reason for Visit Reason for Visit: IOL Information Peripartum Data: Infant Delivery Method: Vaginal Physical Exam Urinary Catheter Management: Bales Latex: Cath Placed During This Visit: yes, but has since been removed by the nurse Reason for Continuing Indwelling Catheter: Other Urinary Catheter Date of Insertion: 11/30/21 Urinary Catheter Time of Insertion: 20:40 Date Urinary Catheter Removed: 11/30/21 Time Urinary Catheter Discontinued: 21:04 History History History 1 Term Miscarriages/Ectopic Living Children Discharge Data Studies Completed and Pending Completed Studies During Hospitalization Category Date Time Status CXRP [XR chest 1V portable [id number]] Stat Exams 12/02/21 12:15 Completed Pending at discharge Category Date Time Status Blood Culture Stat Lab 12/02/21 13:00 Results Radiology Impressions Chest X-Ray 12/02/21 12:15 IMPRESSION: Unremarkable portable chest. Laboratory Results WBC 5.0 10^3/uL (4.0-10.0) 12/04/21 04:50 Corrected WBC Cancelled 12/02/21 05:10 RBC 2.72 10^6/uL (4.1-5.3) L 12/04/21 04:50 Hgb 8.5 g/dL (11.5-15.3) L 12/04/21 04:50 Hct 25.8 % (37.0-47.0) L 12/04/21 04:50 MCV 94.9 fl (81-99) 12/04/21 04:50 MCH 31.3 pg (28.0-34.0) 12/04/21 04:50 MCHC 32.9 g/dL (30.0-36.0) 12/04/21 04:50 RDW 13.2 % (12.1-15.1) 12/04/21 04:50 Plt Count 117 10^3/cmm (130-400) L 12/04/21 04:50 MPV 11.6 fL (7.4-10.4) H 12/04/21 04:50 Gran % Cancelled 12/02/21 05:10 Neut % (Auto) 77.8 % 12/04/21 04:50 Lymph % (Auto) 11.5 % 12/04/21 04:50 [place] % (Auto) 6.7 % 12/04/21 04:50 Eos % (Auto) 3.2 % 12/04/21 04:50 Baso % (Auto) 0.2 % 12/04/21 04:50 Neut # (Auto) 3.86 10^3/uL (1.8-7.7) 12/04/21 04:50 Lymph # (Auto) 0.6 10^3/uL (0.8-4.8) L 12/04/21 04:50 [place] # (Auto) 0.3 10^3/uL (0.2-0.9) 12/04/21 04:50 Eos # (Auto) 0.2 10^3/uL (0.0-0.8) 12/04/21 04:50 Baso # (Auto) 0.0 10^3/uL (0.0-0.1) 12/04/21 04:50 Absolute Gran (auto) Cancelled 12/02/21 05:10 Nucleated RBC % (auto) 0 % 12/04/21 04:50 Nucleated RBCs # 0.0 /100WBC 12/04/21 04:50 Sodium 139 mmol/L (136-145) 12/04/21 04:50 Potassium 3.7 mmol/L (3.5-5.1) 12/04/21 04:50 Chloride 104 mmol/L (98-107) 12/04/21 04:50 Carbon Dioxide 21 mmol/L (22-29) L 12/04/21 04:50 Anion Gap 17.7 (5-19) 12/04/21 04:50 BUN 10 mg/dL (6-20) 12/04/21 04:50 Creatinine 0.4 mg/dL (0.5-0.9) L 12/04/21 04:50 GFR Calculation 197.8 mL/min (90-130) H 12/04/21 04:50 Glucose 85 mg/dL (65-115) 12/04/21 04:50 Calculated Osmolality 286 mOsm/kg (285-295) 12/04/21 04:50 Calcium 8.9 mg/dL (8.5-10.5) 12/04/21 04:50 Total Bilirubin 0.2 mg/dL (0.15-1.2) 12/04/21 04:50 AST 17 U/L (0-32) 12/04/21 04:50 ALT 17 U/L (0-33) 12/04/21 04:50 Alkaline Phosphatase 91 IU/L (35-105) 12/04/21 04:50 Total Protein 5.7 g/dL (6.6-8.7) L 12/04/21 04:50 Albumin 3.0 g/dL (3.5-5.2) L 12/04/21 04:50 Globulin 2.7 g/dL (1.3-4.6) 12/04/21 04:50 Influenza Type A Ag Negative (Negative) 12/02/21 05:20 Influenza Type B Ag Negative (Negative) 12/02/21 05:20 Vitals Last Vital Signs Temp 97.8 F 12/05/21 07:30 Pulse 78 12/05/21 07:30 Resp 16 12/05/21 12:53 BP 124/80 12/05/21 07:30 Pulse Ox 97 12/05/21 07:30 Discharge Plan Discharge Patient Disposition: Home Condition: Stable Prescriptions: New ibuprofen 800 mg tablet 800 mg PO Q8H Qty: 30 0RF hydrocodone-acetaminophen 5-325 mg tablet 1 tab PO Q6H Qty: 10 0RF Rx Instructions: Alternate with ibuprofen docusate sodium 100 mg Capsule 100 mg PO BID PRN (Reason: constipation) Qty: 30 0RF Continued prenat.vits,jemima,cdx-zryu-giakl Tablet 1 tab PO DAILY 0RF ferrous sulfate [FeroSul] 325 mg (65 mg iron) tablet 325 mg PO DAILY 0RF Discontinued Unisom (doxylamine) 25 mg tablet 25 mg PO .hs PRN (Reason: Sleep) 0RF Discharge Orders: Discharge Order (Routine); Ordered 12/05/21 Ordered By: Thanh Coley Referrals: Enoch De Jesus MD [Physician] - 01/11/22 10:45 am (Your 6 week post- appointment is scheduled for 01/11/22 @10:45. ) Discharge Diet: Regular Discharge Activity: Limit activity as instructed Patient Instructions: Depression (DC), Bleeding (DC), Preeclampsia and Eclampsia After Delivery (GEN), OB Discharge Report, OB Food/Drug Interaction Guide, Opioid Safety, OB Home Care, OB Vaginal Deliveries - [facility] Activity Restrictions/Additional Instructions: Pelvic rest for 6 weeks, no heavy lifting for 6 weeks Follow-up with Dr. De Jesus for 6-week Discharge Attestations COMPUTER SYSTEMS DESIGN ANALYST Time Spent in Discharge Care*: greater than 30 min Coding Level of Care Code Acute Building Contractor for Chg Fwd Diagnoses Term Z34.90
== END 2021-12-05 14:30 | disposition home or self-care (01) | DRG 807 ==
LOC: OPOB 05:02 → OBGYN 07:39
PROVIDERS: Obstetrics & Gynecology; Admitting Provider Obstetrics & Gynecology; PCP Nurse Practitioner Family; Visit Provider Obstetrics & Gynecology
DX: O99.214 Obesity complicating childbirth (principal); Z37.0 Single live birth; O16.4 Unspecified maternal hypertension, complicating childbirth; O76 Abnormality in fetal heart rate and rhythm complicating labor and delivery; O75.3 Other infection during labor; E66.9 Obesity, unspecified; O70.1 Second degree perineal laceration during delivery; N30.90 Cystitis, unspecified without hematuria; B95.62 Methicillin resistant Staphylococcus aureus infection as the cause of diseases classified elsewhere; Z3A.40 40 weeks gestation of pregnancy
CPT/HCPCS: 36415; 59409; 71045; 80053; 85025; 85027; 87040; 87077; 87086; 87150; 87186; 87205; 87804; J0290; J1580; J2405; J3010; J3490

== ENCOUNTER → 2021-12-16 10:27 | Outpatient (BNVA) | payer OTHER, MEDICAID, SELFPAY | PROVIDERS: PCP Nurse Practitioner Family; Visit Provider Obstetrics & Gynecology | DX: R78.81 Bacteremia (principal); N39.0 Urinary tract infection, site not specified | CPT/HCPCS: 81000; 85027; 87077; 87086; 87184 ==

== ENCOUNTER → 2021-12-28 13:25 | Outpatient (BNVA) | payer OTHER, MEDICAID, SELFPAY | PROVIDERS: PCP Nurse Practitioner Family; Visit Provider Obstetrics & Gynecology | DX: B95.62 Methicillin resistant Staphylococcus aureus infection as the cause of diseases classified elsewhere (principal); R78.81 Bacteremia | CPT/HCPCS: 81000; 87086 ==

== ENCOUNTER → 2022-01-04 11:06 | Outpatient (BNVA) | payer OTHER, MEDICAID, SELFPAY | PROVIDERS: PCP Nurse Practitioner Family; Visit Provider Obstetrics & Gynecology | DX: Z34.90 Encounter for supervision of normal pregnancy, unspecified, unspecified trimester (principal) | CPT/HCPCS: 85027 ==

== ENCOUNTER → 2022-01-11 11:29 | Outpatient (BNVA) | payer OTHER, MEDICAID, SELFPAY | PROVIDERS: PCP Nurse Practitioner Family; Visit Provider Obstetrics & Gynecology | DX: Z30.017 Encounter for initial prescription of implantable subdermal contraceptive (principal) | CPT/HCPCS: 81025 ==

== ENCOUNTER → 2022-01-19 15:26 | Outpatient (BNVA) | payer OTHER, MEDICAID, SELFPAY | PROVIDERS: PCP Nurse Practitioner Family; Visit Provider Nurse Practitioner Family | DX: R35.0 Frequency of micturition (principal); R50.9 Fever, unspecified | CPT/HCPCS: 81000; 87400 ==

== ENCOUNTER → 2022-01-20 08:17 | Outpatient (BNVA) | payer OTHER, MEDICAID, SELFPAY | PROVIDERS: PCP Nurse Practitioner Family; Visit Provider Nurse Practitioner Family | DX: R50.9 Fever, unspecified (principal) | CPT/HCPCS: 85025; 87086 ==

== ENCOUNTER → 2022-01-25 11:41 | Outpatient (BNVA) | payer OTHER, MEDICAID, SELFPAY | PROVIDERS: PCP Nurse Practitioner Family; Visit Provider Nurse Practitioner Family | DX: R10.2 Pelvic and perineal pain (principal); N39.0 Urinary tract infection, site not specified; N89.8 Other specified noninflammatory disorders of vagina | CPT/HCPCS: 87070; 87086; 87205 ==

== ENCOUNTER → 2022-04-27 13:34 | Outpatient (BNVA) | payer OTHER, MEDICAID, SELFPAY | PROVIDERS: PCP Nurse Practitioner Family; Visit Provider Obstetrics & Gynecology | DX: Z13.29 Encounter for screening for other suspected endocrine disorder (principal); R30.0 Dysuria; R63.5 Abnormal weight gain; F53.0 Postpartum depression; Z97.5 Presence of (intrauterine) contraceptive device; N94.10 Unspecified dyspareunia | CPT/HCPCS: 81000; 84443 ==

== ENCOUNTER → 2022-05-07 10:10 | Outpatient (BNVA) | payer OTHER, MEDICAID, SELFPAY | PROVIDERS: PCP Nurse Practitioner Family; Visit Provider Obstetrics & Gynecology | DX: N83.292 Other ovarian cyst, left side (principal); R10.2 Pelvic and perineal pain | CPT/HCPCS: 76830; 81000 ==

== ENCOUNTER → 2022-06-30 08:21 | Day surgery (SDC) | payer OTHER, MEDICAID, SELFPAY ==
[2022-06-21 09:42] VITALS: BMI 34.9
[2022-06-21 10:18] LABS: Add Urine Microscopic? NO; Charge for UA Resulting for Rev
[2022-06-21 10:20] LABS: Basophils % 0.4 %; Eosinophils # 0.1 10^3/uL (0.0-0.8); Hematocrit 37.1 % (37.0-47.0); Hemoglobin 12.5 g/dL (11.5-15.3); Lymphocytes % 39.8 %; Mean Corpuscular HGB Conc 33.7 g/dL (30.0-36.0); Mean Corpuscular Hemoglobin 29.3 pg (28.0-34.0); Mean Corpuscular Volume 86.9 fl (81-99); Mean Platelet Volume 11.4 fL (7.4-10.4); Monocytes # 0.5 10^3/uL (0.2-0.9); Monocytes % 9.3 %; Neutrophils % 48.3 %; Nucleated Red Blood Cells % 0 %; Platelet Count 199 10^3/cmm (130-400); Red Blood Count 4.27 10^6/uL (4.1-5.3); Red Cell Distribution Width 11.9 % (12.1-15.1)
[2022-06-21 10:37] LABS: Specific Gravity, Urine 1.005 (1.005-1.030); Urine Appearance Clear (CLEAR); Urine Color Straw (Yellow); pH Urine 5 (5-7)
[2022-06-21 10:38] LABS: Bilirubin Urine Neg (Negative); Blood Urine Neg (Negative); Glucose Urine UA Norm (Normal); Ketones Urine Negative (Negative); Leukocyte Esterase Urine Negative (Negative); Nitrate Urine Negative (Negative); Protein Urine Neg (Negative); Urobilinogen Urine Norm (Negative)
[2022-06-21 10:42] LABS: Alanine Aminotransferase 14 U/L (0-33); Albumin Level 4.2 g/dL (3.5-5.2); Alkaline Phosphatase 86 U/L (35-105); Anion Gap 14.8 (5-19); Aspartate Amino Transferase 11 U/L (0-32); Blood Urea Nitrogen 9 mg/dL (6-20); Calcium 8.9 mg/dL (8.5-10.5); Carbon Dioxide 23 mmol/L (22-29); Chloride 103 mmol/L (98-107); Globulin 3.2 g/dL (1.3-4.6); Glomerular Filtration Rate 151.6 mL/min (90-130); Glucose 101 mg/dL (65-115); Osmolality Calculated 283 mOsm/kg (285-295); Potassium 3.8 mmol/L (3.5-5.1); Sodium 137 mmol/L (136-145); Total Bilirubin 0.2 mg/dL (0.15-1.2); Total Protein 7.4 g/dL (6.6-8.7)
--- NOTE | 2022-06-21 11:47 | ANES.PREANE2 ---
Pre-Anesthetic Assessment Height/Weight: Height 1.6 m Weight 89.358 kg Preop Diagnosis: Dysmenorrhea Operation Date: 06/30/22 10:05 Proposed Procedures p Diagnostic Laparoscopy 08301,N94.6(Not Applicable) - Enoch De Jesus MD Familial anesthetic complications: None Was Beta Florian taken within 24 hours: N/A Was Clonidine taken within 24 hours: N/A Social No alcohol and No tobacco Exam alert, oriented x 3, clear to auscultation bilaterally and regular rate & rhythm Airway Submandibular: within normal limits Cervical ROM: within normal limits Mallampati: Class I Dentition: full History/ROS No significant complaints Pulmonary None reported CV/HEM None reported Dysmenorrhea Dyspareunia Hepatic None reported GI None reported Metabolic Obesity Musc/skel None reported Neuropsych None reported Anesthetic Plan ASA status: 2 Anesthesia: Anesthesia Evaluation and General Other: We discussed risk and benefits of general anesthesia including PONV, sore throat (sometimes severe), corneal abrasion, positioning and peripheral nerve injuries, life threatening allergic reaction, post operative ICU admission requiring prolonged intubation, stroke, heart attack, , and rare incidences of recall. Patient consents to proceed with general anesthesia. Risk of > 500 ml blood loss (7ml/kg in children): No Medications/Allergies Home Medications Medication Instructions Recorded Confirmed Last Taken Type ibuprofen 800 mg tablet 800 mg PO Q8H PRN pain 01/11/22 06/21/22 06/19/22 History etonogestrel 68 mg subdermal 68 mg subdermal DIRECTED 04/27/22 06/21/22 01/13/22 History implant (Nexplanon) Allergies Allergy/AdvReac Type Severity Reaction Status Date / Time No Known Allergies Allergy Verified 06/21/22 08:07 [facility] Anesthesia Medical History Abnormal Pap smear of cervix Irregular menstrual bleeding No pertinent past medical history Neg. Hx: HTN, DM, DVT/PE PCP: Dr. Ana Luisa Craft Surgical History History of ear surgery Family History Grandmother Diabetes maternal Hypertension maternal Family/Other Colon cancer maternal uncle Ovarian cancer paternal great aunt, onset unknown Grandfather Heart disease Denies family history of Breast cancer Uterine cancer Thyroid disease Stroke Female Reproductive History Date of last menstrual period: 05/03/22 Data Anesthesia : 06/21/22 09:55 06/21/22 09:55 Short CBC 06/21/22 Range/Units 09:55 WBC 5.0 (4.0-10.0) 10^3/uL Hgb 12.5 (11.5-15.3) g/dL Hct 37.1 (37.0-47.0) % MCV 86.9 (81-99) fl Plt Count 199 (130-400) 10^3/cmm Neut % (Auto) 48.3 % Neut # (Auto) 2.40 (1.8-7.7) 10^3/uL BMP 06/21/22 09:55 Sodium 137 Potassium 3.8 Chloride 103 Carbon Dioxide 23 BUN 9 Creatinine 0.5 Glucose 101 Calcium 8.9 Liver Function 06/21/22 Range/Units 09:55 Total Bilirubin 0.2 (0.15-1.2) mg/dL AST 11 (0-32) U/L ALT 14 (0-33) U/L Alkaline Phosphatase 86 (35-105) U/L Albumin 4.2 (3.5-5.2) g/dL Urine 06/21/22 Range/Units 10:10 Urine Color Straw (Yellow) Urine Appearance Clear (CLEAR) Urine pH 5 (5-7) Ur Specific [place] 1.005 (1.005-1.030) Urine Protein Neg (Negative) Urine Glucose (UA) Norm (Normal) Urine Ketones Negative (Negative) Urine Nitrate Negative (Negative) Urine Bilirubin Neg (Negative) Ur Leukocyte Esterase Negative (Negative) Blood Bank 06/21/22 09:55 Blood Type A Positive Rho(D) Type Positive Antibody Screen Negative Cardiac Studies: No Data to Display
[2022-06-30] VITALS (7 sets, daily range): BP systolic 97–128; BP diastolic 62–83; PULSE 55–68; RESP 16–23; TEMP 36.2–36.6; O2SAT 98–100
--- NOTE | 2022-06-30 08:35 | W.PM.OPSUD ---
Surgery/Procedure H&P Update DATE OF PROCEDURE: June 30, 2022 DATE H&P PERFORMED: 06/21/22 H&P UPDATE INFORMATION: I have reviewed H&P completed within last 30 days, I have examined patient prior to procedure and No changes to prior documentation PREOP DIAGNOSIS: Pelvic pain PLANNED PROCEDURE: Operation Date: 06/30/22 10:05 Proposed Procedures p Diagnostic Laparoscopy 66974,N94.6(Not Applicable) - Enoch De Jesus MD
[2022-06-30 08:41] LABS: OR HCG Qualitative Urine Negative (Negative)
[2022-06-30] MEDS: sodium chloride 0.9% 1,000 ML 30 ML IV (09:00)
--- NOTE | 2022-06-30 09:03 | P.ANESUD_ITS ---
Pre-Anesthetic Update Pre-Anesthetic Assessment: Date of Surgery/Procedure: 06/30/22 Preop Emily gnosis: Pelvic pain Proposed Procedure: Operation Date: 06/30/22 10:05 Proposed Procedures p Diagnostic Laparoscopy 48409,N94.6(Not Applicable) - Enoch De Jesus MD Any changes to Pre-Anesthetic Assessment?: No Last Intake: Intake Last Liquid Date 06/29/22 Last Liquid Time 20:00 Last Solid Date 06/29/22 Last Solid Time 18:00 Vitals: Temperature 97.6 F 06/30/22 08:31 Temperature Source Temporal Artery S can 06/30/22 08:31 Pulse Rate 64 06/30/22 08:31 Respiratory Rate 17 06/30/22 08:31 Blood Pressure 128/69 06/30/22 08:31 Blood Pressure Leena n 88 06/30/22 08:31 Pulse Oximetry 98 06/30/22 08:31 Oxygen Delivery Me thod 06/30/22 08:43 Exam: Pre-Anes Outpt Exam: alert, oriented x 3, clear to auscultation bilaterally and regular rate & rhythm Cardiac Studies: No Data to Display
[2022-06-30] MEDS: ceFAZolin 2,000 mg SDV 2000 MG IVP (09:15)
--- NOTE | 2022-06-30 09:53 | P.OP_ITS ---
Operative Report Date of procedure: June 30, 2022 Pre-op diagnosis: Preop Diagnosis Pelvic pain Post-op diagnosis: Same as above Procedure done: Diagnostic laparoscopy Specimens removed/disposition: None Surgeon: Enoch De Jesus MD Estimated blood loss (mL): 5 IV fluids (mL): 800 Urine output (mL): 100 Brief History: Mrs. Aldridge 22-year-old female with a history of chronic pelvic pain unresponsive to medical manage. Procedure: DESCRIPTION OF PROCEDURE: After informed consent, the patient was taken to the operating room where general anesthesia was administered. The patient was examined under anesthesia and found to have a normal uterus with normal adnexa. She was placed in the dorsal lithotomy position and prepped and draped in sterile fashion. Pre- Procedure Time-Out verifying the correct patient identity, correct procedure verified with consent, correct site and side, correct patient position, availability of correct implants and any special equipment or requirements was performed and acknowledge by the OR team. A weighted speculum was placed in the vagina, and the anterior lip of cervix was grasped with the single toothed tenaculum. A uterine manipulator was advanced into the endocervical. Tenaculum was removed after uterine manipulator was secured. The speculum was removed from the vagina. An intraumbilical incision was made with a scalpel. While tenting up on the abdomen, a Verres needle with sleeve was admitted into the intra-abdominal cavity. A saline drop test was performed and noted to be within normal limits. Pneumoperitoneum was attained with 4 liters of carbon dioxide. The Verres needle was removed. A 5 mm trocar and sleeve were admitted into the abdomen and laparoscopic confirmation of location was achieved, A second incision was made 3 cm above the symphysis pubis, and a 5 mm trocar and sleeve were admitted into the abdomen under direct, laparoscopic visualization without complication. A survey revealed normal abdominal anatomy. A 5 mm blunt probe was advanced through the second trocar sleeve, and light manipulation of ovaries and uterus to assess the posterior aspects was performed. The pelvic survey shows normal uterus, left and right adnexa. With the right ovary showing a simple small follicular cyst. Carbon dioxide was allowed to escape from the abdomen. The instruments were removed, and skin cover with a bandage. The instruments were removed from the vagina, and excellent hemostasis was noted. The patient tolerated the procedure well, and sponge, lap and needle count were correct times two. The patient taken to the recovery room in good condition.
[2022-06-30] MEDS: HYDROcodone-acetaminophen 5-325 mg Tablet 1 TAB PO (10:54)
--- NOTE | 2022-06-30 11:14 | SUR.PHASEII ---
1108-johnson catheter removed in post op, patient ambulated to bathroom and urinated.
--- NOTE | 2022-06-30 12:19 | ANE.PACU2 ---
Inpatient post-anesthesia follow up: Airway intact: Yes Vital signs: Temperature 97.9 F Pulse Rate 55 Respiratory Rate 18 Blood Pressure 116/67 Pulse Oximetry 100 Oxygen Delivery Me thod Room Air Oxygen Flow Rate 6 Fraction of Inspir ed Oxygen Hydration adequate: Yes Nausea and vomiting: No Pain level: 1 Mental status: Baseline
== END | disposition home or self-care (01) ==
PROVIDERS: Anesthesiology; PCP Nurse Practitioner Family; Visit Provider Obstetrics & Gynecology
PROC: (CPT 49320; principal; 2022-06-30 09:55)
DX: R10.2 Pelvic and perineal pain (principal); Z80.41 Family history of malignant neoplasm of ovary; Z80.0 Family history of malignant neoplasm of digestive organs
CPT/HCPCS: 49320; 80053; 81003; 81025; 84703; 85025; 86850; 86900; J1100; J1200; J2250; J2405; J2704; J3010; J3490; J7030

== ENCOUNTER 2023-07-10 12:42 | Emergency (ER) | payer OTHER, MEDICAID, SELFPAY ==
[2023-07-10 12:49] VITALS: BP 125/82; PULSE 78; TEMP 36.9; O2SAT 99; BMI 32.2
--- NOTE | 2023-07-10 12:56 | W.ED.WOUNDLC ---
HPI - Wound/Laceration General: Chief Complaint: Recheck/Abnormal Lab/Rx Stated Complaint: surgery site swollen and red Time Seen by Provider: 07/10/23 12:54 History of Present Illness: 23-year-old female presents the emergency department for evaluation of her postoperative laparoscopic wounds. She is worried about infection. She had surgery on June 28, [address] Abdulaziz Clark at [facility]. 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 She has a drain in the left upper quadrant. She has had less than 5 cc of output over the last 48 hours. She has 5 other laparoscopic incisions. The one about the umbilicus she thought might be infected. She states that she was started on Bactrim yesterday empirically. She has had 3 doses including 2 yesterday and 1 this morning. She has not had any fever. She does still have some abdominal pain. Review of systems is also positive for constipation. There has not been any spreading redness, warmth about the wounds, streaking. Associated symptoms: Denies chills, fever(s), nausea, syncope or vomiting Review of Systems General: Reports: 10 or more systems reviewed and unremarkable except in HPI and below Const: Denies: fever(s), chills or body aches Eyes: Denies: change in vision ENMT: Denies: throat pain Card: Denies: chest pain, edema or syncope Resp: Denies: dyspnea or productive cough GI: Denies: nausea, vomiting or diarrhea : Denies: flank pain, dysuria or urinary frequency Musc: Denies: neck pain, back pain, extremity pain or extremity swelling Skin/Breast: Denies: rash Neuro: Denies: headache(s), numbness in extremities, weakness in extremities, lack of coordination or difficulty walking PFSH ED PFSH: Medical History (Updated 07/10/23 @ 13:17 by Ricky Sethi MD) Abnormal Pap smear of cervix Irregular menstrual bleeding No pertinent past medical history Neg. Hx: HTN, DM, DVT/PE PCP: Dr. Ana Luisa Craft Surgical History (Updated 08/13/22 @ 08:45 by Yaritza Conner LPN) History of ear surgery Hx of laparoscopy (~06/30/22) Diagnostic laparoscopy by Dr. De Jesus. No findings; normal anatomy. Family History Grandmother Diabetes maternal Hypertension maternal Family/Other Colon cancer maternal uncle Ovarian cancer paternal great aunt, onset unknown Grandfather Heart disease Denies family history of Breast cancer Uterine cancer Thyroid disease Stroke Social History (Updated 07/13/22 @ 08:37 by Marilynn Stock APN, JADIEL) Substance/Drug Use: never Physical Exam Const: COMMON NORMALS: no limitations, alert and well nourished EXAM LIMITATIONS: no altered mental status HENMT: COMMON NORMALS: normocephalic, atraumatic and external ears normal HEAD & SCALP: normocephalic and atraumatic EXTERNAL EAR: Yes external ears normal MOUTH: no muffled voice Eye: COMMON NORMALS: EOMs intact bilaterally, conjunctivae normal and no scleral icterus CONJUNCTIVA: Yes conjunctivae normal Neck/C-Spine: COMMON NORMALS: no JVD GENERAL: Yes normal visual inspection and Yes trachea midline Resp: COMMON NORMALS: normal respiratory effort, No use of accessory muscles and clear to auscultation bilaterally AUSCULTATION: clear to auscultation bilaterally Cardio: COMMON NORMALS: no JVD, regular rate and regular rhythm RATE: regular rate RHYTHM: regular rhythm GI: COMMON NORMALS: Soft to palpation PALPATION: Yes Soft to palpation and No Guarding due to palpation present (GI) OTHER: Abdomen is soft and nondistended. There are 6 incisions including the left upper quadrant site for the drain. The drain has approximately 3 cc of serosanguineous appearing discharge. The remainder of the wounds were examined. There is a mixture of fibrin slough and granulation tissue within the periumbilical and left upper quadrant incisions. There is still skin glue. There is no dehiscence. There is no abnormal erythema, purulent discharge, odor, warmth, or increased tenderness. Extremity: COMMON NORMALS: normal to inspection Neuro: COMMON NORMALS: moves all extremities, no focal motor deficits and no sensory deficits noted SENSORIUM/ORIENTATION: Yes alert SPEECH: speech normal Psych: COMMON NORMALS: mental status grossly normal, Normal thought process present, cooperative, normal affect and speech normal SPEECH: Yes normal speech THOUGHT PROCESS: Normal thought process present Skin: COMMON NORMALS: turgor normal and no jaundice NARRATIVE SKIN EXAM: See GI section GENERAL SKIN EXAM: turgor normal Course Vital Signs: Vital signs: Vital Signs Temperature 98.4 F 07/10/23 12:49 Pulse Rate 78 07/10/23 12:49 Blood Pressure 125/82 07/10/23 12:49 Pulse Oximetry 99 07/10/23 12:49 Oxygen Delivery Me thod Room Air 07/10/23 12:49 MDM - Wound/Laceration Medical Decision Making These wounds were carefully evaluated. They do not appear infected. If I had seen her yesterday, I would not have started Bactrim. I will leave it up to her whether she wants to continue this. She is not systemically ill and has no sirs criteria. She had asked me about removing her drain but has a clinic appointment in about 1 week for it to be removed at [facility]. I explained that I would not be removing it today as there is no emergent indication and medical etiquette dictates we do not remove surgeons tubes unless there is a specific emergent indication. Patient also had some constipation. I will prescribe her a variety of medications to use. Discharge Plan Discharge Patient Disposition: Home Clinical Impression: Encounter for post surgical wound check, Constipation due to opioid therapy Condition: Stable Prescriptions: New Senna with Docusate Sodium 8.6-50 mg tablet 1 tab-cap PO BID Qty: 20 0RF lactulose 20 gram/30 mL solution 20 g PO BID PRN (Reason: constipation) Qty: 120 0RF Miralax 17 gram powder in packet 17 g PO BID PRN (Reason: constipation) 4 Days Qty: 14 0RF No Action Nexplanon 68 mg implant 68 mg subdermal DIRECTED ibuprofen 800 mg tablet 800 mg PO TID PRN (Reason: pain) Qty: 60 0RF acetaminophen 325 mg capsule 325 mg PO Q4H PRN (Reason: fever or pain) Qty: 60 0RF Discharge Orders: Discharge ED (Routine); Ordered 07/10/23 Ordered By: Ricky Sethi Discharge Diet: Advance as tolerated Discharge Activity: Increase activity as tolerated Patient Instructions: Acute Wound Care (ED), Opioid Safety, Pain Management Activity Restrictions/Additional Instructions: Please follow-up with your surgeon as planned. There are not any convincing signs of infection today. I will leave it up to you whether you want to continue Bactrim. Continue wound care. Please see handout for more information. If there is a fever greater than 100.8 oral, spreading redness, purulent discharge or other concerns call your surgeon or go to ER. Coding Level of Care Code ED Travel Sales Consultant for Basil Bowman
[2023-07-10 13:52] VITALS: BP 125/82; PULSE 78; RESP 18; TEMP 36.9; O2SAT 99
== END 2023-07-10 13:54 | disposition home or self-care (01) ==
PROVIDERS: Emergency Provider Emergency Medicine
DX: Z48.00 Encounter for change or removal of nonsurgical wound dressing (principal); K59.03 Drug induced constipation; T40.2X5A Adverse effect of other opioids, initial encounter
CPT/HCPCS: 99284

== ENCOUNTER → 2023-12-20 07:53 | Outpatient (BNVA) | payer OTHER, SELFPAY | PROVIDERS: Visit Provider Nurse Practitioner Women's Health | DX: N92.6 Irregular menstruation, unspecified (principal) | CPT/HCPCS: 81025 ==

== ENCOUNTER → 2024-01-02 10:17 | Outpatient (BNVA) | payer OTHER, MEDICAID, SELFPAY | PROVIDERS: Visit Provider Nurse Practitioner Women's Health | DX: Z34.91 Encounter for supervision of normal pregnancy, unspecified, first trimester (principal); Z3A.08 8 weeks gestation of pregnancy | CPT/HCPCS: 76801 ==

== ENCOUNTER → 2024-01-13 08:32 | Outpatient (BNVA) | payer OTHER, MEDICAID, SELFPAY | PROVIDERS: Visit Provider Obstetrics & Gynecology | DX: O99.211 Obesity complicating pregnancy, first trimester (principal); E66.09 Other obesity due to excess calories; Z3A.00 Weeks of gestation of pregnancy not specified | CPT/HCPCS: 80307; 82950; 84315; 85025; 86592; 86762; 86803; 86850; 86900; 87086; 87340; 87806 ==

== ENCOUNTER → 2024-01-18 08:25 | Outpatient (BNVA) | payer OTHER, MEDICAID, SELFPAY | PROVIDERS: Visit Provider Obstetrics & Gynecology | DX: O99.211 Obesity complicating pregnancy, first trimester (principal); Z3A.00 Weeks of gestation of pregnancy not specified | CPT/HCPCS: 82951; 82952 ==

== ENCOUNTER → 2024-01-27 07:50 | Outpatient (BNVA) | payer OTHER, MEDICAID, SELFPAY | PROVIDERS: Visit Provider Obstetrics & Gynecology | DX: Z34.80 Encounter for supervision of other normal pregnancy, unspecified trimester (principal); Z3A.00 Weeks of gestation of pregnancy not specified | CPT/HCPCS: 84315; 87491; 87591; 88175 ==

== ENCOUNTER 2024-02-16 10:25 | Emergency (ER) | payer OTHER, MEDICAID, SELFPAY ==
[2024-02-16 10:34] VITALS: BP 111/73; PULSE 70; RESP 14; TEMP 36.6; O2SAT 98
--- NOTE | 2024-02-16 10:40 | XR_ITS ---
WS: [id number] Exam: XR chest 1V portable [id number] Date/Time of Exam: 02/16/2024 10:40 AM Reason For Exam: rib pain Comparison 12/02/2021. Findings: The lungs are clear and fully expanded. Costophrenic angles are sharp. No infiltrates. Bronchovascula r relief appears normal. Cardiac silhouette is unremarkable. Bony elements are intact. IMPRESSION: Unremarkable chest radiograph.
--- NOTE | 2024-02-16 11:46 | W.ED.GENADLT ---
HPI - General Adult General: Chief complaint: General Medical Stated complaint: left side back pain, 15 weeks preg Time Seen by Provider: 02/16/24 11:22 Source: patient Mode of arrival: ambulatory History of Present Illness: 23-year-old female presents emergency room with complaints of left lateral rib pain worse with a deep breath began over the last couple of days no dysuria urgency or frequency no fever sweats or chills no cough or shortness of breath pain is worse with deep inspiration and with palpation of the ribs. Currently 15 weeks . No vaginal bleeding or change in discharge has typical leukorrhea with no change during this course of symptoms. No hematuria Onset (ago): day(s) Location: chest Relieving factors: none Exacerbating factors: none Associated symptoms: Reports chest pain (Worse with inspiration); Deny confusion, cough, diaphoresis, decreased appetite, dyspnea, fevers/chills, headache(s), malaise, nausea, rash, palpitations, seizures, short of breath, syncope, vomiting or weakness Treatments prior to arrival: none Review of Systems Const: Denies: fever(s), chills, malaise or diaphoresis Card: Reports: chest pain (Worse with inspiration); Denies: palpitations or syncope Resp: Denies: dyspnea GI: Denies: abdominal pain, nausea or vomiting : Denies: dysuria, urinary frequency or urinary urgency Musc: Denies: neck pain or back pain Skin/Breast: Denies: rash Neuro: Denies: headache(s) or confusion PFS ED PFSH: Medical History No pertinent past medical history Neg. Hx: HTN, DM, DVT/PE PCP: Dr. Ana Luisa Craft Irregular menstrual bleeding Abnormal Pap smear of cervix Surgical History History of partial pancreatectomy (~06/28/23) distal pancreatectomy performed at the same time as splenectomy at [place] in [facility] H/O splenectomy (~06/28/23) performed at the same time as the distal pancreatectomy at the [facility] in [facility] Hx of laparoscopy (~06/30/22) Diagnostic laparoscopy by Dr. De Jesus. No findings; normal anatomy. History of ear surgery Family History Grandmother Diabetes maternal Hypertension maternal Family/Other Colon cancer maternal uncle Ovarian cancer paternal great aunt, onset unknown Grandfather Heart disease Denies family history of Breast cancer Uterine cancer Thyroid disease Stroke Physical Exam Const: COMMON NORMALS: no acute distress GENERAL APPEARANCE: cooperative and comfortable ORIENTATION/CONSCIOUSNESS: Yes awake, Yes oriented to person, Yes oriented to place and Yes oriented to time HENMT: COMMON NORMALS: normocephalic, atraumatic and hearing grossly normal bilaterally HEAD & SCALP: normocephalic and atraumatic Resp: COMMON NORMALS: normal respiratory effort, No retractions, No use of accessory muscles and clear to auscultation bilaterally AUSCULTATION: clear to auscultation bilaterally Cardio: COMMON NORMALS: regular rate, regular rhythm and No murmurs present (Cardio) RATE: regular rate RHYTHM: regular rhythm GI: COMMON NORMALS: Soft to palpation and No hepatosplenomegaly present AUSCULTATION: Yes normoactive bowel sounds PALPATION: Yes Soft to palpation, No Tenderness to palpation present (GI), No Guarding due to palpation present (GI) and Yes No hepatosplenomegaly present Extremity: COMMON NORMALS: normal to inspection, capillary refill normal, no clubbing, cyanosis or edema, no calf tenderness and no pedal edema Neuro: SENSORIUM/ORIENTATION: Yes oriented to person, Yes oriented to place and Yes oriented to time Skin: COMMON NORMALS: no rashes or lesions noted GENERAL SKIN EXAM: no rashes or lesions noted Course Vital Signs: Vital signs: Vital Signs Temperature 97.9 F 02/16/24 10:34 Pulse Rate 73 02/16/24 13:34 Respiratory Rate 16 02/16/24 13:34 Blood Pressure 133/75 02/16/24 12:20 Pulse Oximetry 99 02/16/24 13:34 Oxygen Delivery Me thod Room Air 02/16/24 12:20 MDM - General Adult Medical Decision Making Chest x-ray unremarkable UA negative pain reproducible with deep inspiration palpation. heart tones at the bedside 146 by Doppler. Discharge patient home ice Tylenol as needed for discomfort follow-up with her primary care doctor or oracle hrms developer as needed. Reviewed with the patient that this is no significant bearing on the at this point Medical Records I reviewed the patient's medical records. Lab Data I reviewed the patient's lab results. Laboratory Results Urine Color Yellow (Yellow) 02/16/24 12:12 Urine Appearance Clear (CLEAR) 02/16/24 12:12 Urine pH 6 (5-7) 02/16/24 12:12 Ur Specific [place] 1.020 (1.005-1.030) 02/16/24 12:12 Urine Protein Neg (Negative) 02/16/24 12:12 Urine Glucose (UA) Norm (Normal) 02/16/24 12:12 Urine Ketones Negative (Negative) 02/16/24 12:12 Urine Blood Neg (Negative) 02/16/24 12:12 Urine Nitrate Negative (Negative) 02/16/24 12:12 Urine Bilirubin Neg (Negative) 02/16/24 12:12 Urine Urobilinogen Norm mg/dL (Negative) 02/16/24 12:12 Ur Leukocyte Esterase Negative (Negative) 02/16/24 12:12 All radiology interpretation(s) finalized by discharge Discharge Plan Discharge Patient Disposition: Home Clinical Impression: Rib pain on left side, state, incidental Condition: Stable Prescriptions: No Action DHA 200 mg capsule 200 mg PO DAILY hydroxyzine HCl 10 mg tablet 10 mg PO BEDTIME acetaminophen 325 mg capsule 325 mg PO Q4H PRN (Reason: fever or pain) Qty: 60 0RF docusate sodium 50 mg Capsule 50 mg PO DAILY Discharge Orders: Discharge ED (Routine); Ordered 02/16/24 Ordered By: Luis Carlos Harrell Referrals: Enoch De Jesus MD [Primary Care Provider] - Discharge Diet: Usual diet Discharge Activity: Increase activity as tolerated Patient Instructions: Opioid Safety, Pain Management Activity Restrictions/Additional Instructions: Thank you for choosing [facility] for your healthcare needs today. Please realize this is an emergency room and that we are providing you with a medical screening exam and this may not be complete and all inclusive of all the testing and or work up that you may need to determine your ailment or severity of your illness. It is very important that you follow up as instructed or that you return to the Emergency Department should you have concerns or if your condition changes or worsens in any way. You are seen today with left rib pain worse with inspiration and palpation. X-rays did not show any abnormalities and your UA was negative. heart tones were normal. I suspect this is all musculoskeletal he can follow-up with your primary care doctor and OB doctor as needed. Coding Level of Care Code ED Surfacing Machine Operator for Basil Bowman
[2024-02-16 12:20] VITALS: BP 133/75; PULSE 62; O2SAT 99
[2024-02-16 12:24] LABS: Add Urine Microscopic? NO; Charge for UA Resulting for Rev
[2024-02-16 12:37] LABS: Bilirubin Urine Neg (Negative); Blood Urine Neg (Negative); Glucose Urine UA Norm (Normal); Ketones Urine Negative (Negative); Leukocyte Esterase Urine Negative (Negative); Nitrate Urine Negative (Negative); Protein Urine Neg (Negative); Urine Appearance Clear (CLEAR); Urine Color Yellow (Yellow); Urobilinogen Urine Norm (Negative); pH Urine 6 (5-7)
[2024-02-16 13:34] VITALS: PULSE 73; RESP 16; O2SAT 99
== END 2024-02-16 13:35 | disposition home or self-care (01) ==
PROVIDERS: Emergency Medicine; Emergency Provider Family Medicine; PCP Obstetrics & Gynecology
DX: O26.892 Other specified pregnancy related conditions, second trimester (principal); R07.81 Pleurodynia; Z3A.15 15 weeks gestation of pregnancy
CPT/HCPCS: 71045; 81003; 99284

== ENCOUNTER → 2024-02-24 08:33 | Outpatient (BNVA) | payer OTHER, MEDICAID, SELFPAY | PROVIDERS: PCP Obstetrics & Gynecology; Visit Provider Nurse Practitioner Women's Health | DX: Z34.80 Encounter for supervision of other normal pregnancy, unspecified trimester (principal); R79.89 Other specified abnormal findings of blood chemistry | CPT/HCPCS: 82105; 84315; 85025; 87491; 87591 ==

== ENCOUNTER → 2024-03-22 14:14 | Outpatient (BNVA) | payer OTHER, MEDICAID, SELFPAY | PROVIDERS: PCP Obstetrics & Gynecology; Visit Provider Obstetrics & Gynecology | DX: Z34.82 Encounter for supervision of other normal pregnancy, second trimester (principal) | CPT/HCPCS: 76805 ==

== ENCOUNTER 2024-03-27 15:00 | Emergency (ER) | payer OTHER, MEDICAID, SELFPAY ==
[2024-03-27 15:12] VITALS: BP 133/77; PULSE 80; RESP 18; TEMP 36.7; O2SAT 98; BMI 34.9
--- NOTE | 2024-03-27 16:38 | ECG_ITS ---
[facility] Test Date: 2024-03-27 Pat Name: Rebekah Aldridge Department: Room: Gender: Female Health Care Analyst: : 2000 Requested By: Isabella Whyte Order Number: [id number] Espinosa MD: Ramesh Short M.D. Measurements Intervals [place] Rate: 71 P: 36 NV: 146 QRS: 51 QRSD: 81 T: 16 QT: 408 QTc: 445 Interpretive Statements SINUS RHYTHM No previous ECG available for comparison Electronically Signed On 03-27-2024 16:51:51 CDT by Ramesh Short M.D. [id number]
--- NOTE | 2024-03-27 16:44 | W.ED.SYNCOPE ---
HPI - Syncope General: Chief Complaint: Syncope Stated Complaint: almost passed out, 21 weeks Time Seen by Provider: 03/27/24 16:37 History of Present Illness: 24-year-old female who is 20 weeks who presents to the emergency room with a near syncopal episode. She says she was putting some medication on some poison luisana on her left elbow and suddenly felt flushed and hot and got very lightheaded and almost passed out. She says she feels better now. Blood pressure is little soft when I examined her at 103 systolic. Initially she was 133. No fevers. No cough. No chest pain. No altered mental status. No focal motor deficits. No abdominal pain. No contractions. No vaginal bleeding. No vaginal discharge. No dysuria. She has not noticed any change in movement. Review of Systems Narrative: Constitutional symptoms: Negative except as documented in HPI. Skin symptoms: Negative except as documented in HPI. Eye symptoms: Negative except as documented in HPI. ENMT symptoms: Negative except as documented in HPI. Respiratory symptoms: Negative except as documented in HPI. Cardiovascular symptoms: Negative except as documented in HPI. Gastrointestinal symptoms: Negative except as documented in HPI. Genitourinary symptoms: Negative except as documented in HPI. Musculoskeletal symptoms: Negative except as documented in HPI. Neurologic symptoms: Negative except as documented in HPI. Psychiatric symptoms: Negative except as documented in HPI. Endocrine symptoms: Negative except as documented in HPI. PFSH ED PFSH: Medical History No pertinent past medical history Neg. Hx: HTN, DM, DVT/PE PCP: Dr. Ana Luisa Craft Irregular menstrual bleeding Abnormal Pap smear of cervix Surgical History History of partial pancreatectomy (~06/28/23) distal pancreatectomy performed at the same time as splenectomy at [place] in [facility] H/O splenectomy (~06/28/23) performed at the same time as the distal pancreatectomy at the [facility] in [facility] Hx of laparoscopy (~06/30/22) Diagnostic laparoscopy by Dr. De Jesus. No findings; normal anatomy. History of ear surgery Family History Grandmother Diabetes maternal Hypertension maternal Family/Other Colon cancer maternal uncle Ovarian cancer paternal great aunt, onset unknown Grandfather Heart disease Denies family history of Breast cancer Uterine cancer Thyroid disease Stroke Physical Exam Narrative: EXAM NARRATIVE: General: Alert, no acute distress. Skin: Warm, dry. Head: Normocephalic, atraumatic. Neck: Supple, trachea midline. Eye: Extraocular movements are intact. Ears, nose, mouth and throat: mucosa moist. Cardiovascular: Regular, Normal peripheral perfusion. Respiratory: Lungs are clear to auscultation, respirations are non-labored, breath sounds are equal, Symmetrical chest wall expansion. Gastrointestinal: Soft, Nontender, Non distended, Normal bowel sounds. Musculoskeletal: Normal ROM, no deformity. Neurological: Alert and oriented, No focal neurological deficit observed. Psychiatric: Cooperative, appropriate mood & affect. Course Vital Signs: Vital signs: Vital Signs Temperature 98.0 F 03/27/24 15:12 Pulse Rate 81 03/27/24 19:12 Respiratory Rate 16 03/27/24 19:12 Blood Pressure 127/74 03/27/24 19:12 Pulse Oximetry 99 03/27/24 19:12 Oxygen Delivery Me thod Room Air 03/27/24 15:12 MDM - Syncope Medical Decision Making Medical decision making: Differential diagnosis including but not limited to and based on the above HPI, review of systems and physical exam in this patient with near syncope: Vasovagal, orthostatics hypotension, cardiac dysrhythmia, myocardial infarction, infection and hypotension, Orders placed to evaluate differential diagnosis based on the above differential, HPI and physical exam EKG: Time 1649 rate 71. Normal sinus rhythm, No ST-T changes, no ectopy, normal SC & QRS intervals, This was reviewed and interpreted by myself the ER physician at 1655 Lab Review: Laboratory results were reviewed and interpreted by myself the emergency room physician. Patient has mild leukocytosis with white count 11. Hemoglobin is 11. Creatinine are 7 and 0.3. Her sugar is 89. Urine shows slight leukocytosis with some bacteria some going to treat her for urinary tract infection. I reviewed the patient's medical record. Reexamination: Patient remained stable. No further syncopal episodes. No altered mental status. No dysrhythmias. Assessment and plan: Urinary tract infection Dehydration Near syncope Contact dermatitis -OB nurse evaluated the baby with reassuring heart tones prior to discharge. -IV fluids, IV Rocephin and IV Decadron a single dose and I will put her on some steroid cream at home for her poison luisana - Discharged home - Discussed plan with patient. Answered any questions. - Evaluation and treatment of this problem were appropriate in the emergency setting. Lab Data 03/27/24 16:47 03/27/24 16:47 Laboratory Results WBC 11.53 10^3/uL (3.29-11.43) H 03/27/24 16:47 RBC 3.46 10^6/uL (3.85-5.65) L 03/27/24 16:47 Hgb 11.00 g/dL (11.27-16.99) L 03/27/24 16:47 Hct 32.5 % (36-47) L 03/27/24 16:47 MCV 93.9 fl (85-98) 03/27/24 16:47 MCH 31.8 pg (27-33) 03/27/24 16:47 MCHC 33.8 g/dL (30-55) 03/27/24 16:47 RDW 13.4 % (12.1-15.1) 03/27/24 16:47 Plt Count 505 10^3/cmm (157-399) H 03/27/24 16:47 MPV 10.0 fL (7.4-10.4) 03/27/24 16:47 Neut % (Auto) 67.6 % 03/27/24 16:47 Lymph % (Auto) 21.2 % 03/27/24 16:47 Hunt % (Auto) 7.2 % 03/27/24 16:47 Eos % (Auto) 3.4 % 03/27/24 16:47 Baso % (Auto) 0.3 % 03/27/24 16:47 Neut # (Auto) 7.79 10^3/uL (1.8-7.7) H 03/27/24 16:47 Lymph # (Auto) 2.4 10^3/uL (0.8-4.8) 03/27/24 16:47 Hunt # (Auto) 0.8 10^3/uL (0.2-0.9) 03/27/24 16:47 Eos # (Auto) 0.4 10^3/uL (0.0-0.8) 03/27/24 16:47 Baso # (Auto) 0.0 10^3/uL (0.0-0.1) 03/27/24 16:47 Nucleated RBC % (auto) 0 % 03/27/24 16:47 Nucleated RBCs # 0.0 /100WBC 03/27/24 16:47 Sodium 138 mmol/L (136-145) 03/27/24 16:47 Potassium 3.8 mmol/L (3.5-5.1) 03/27/24 16:47 Chloride 103 mmol/L (98-107) 03/27/24 16:47 Carbon Dioxide 25 mmol/L (22-29) 03/27/24 16:47 Anion Gap 13.8 (5-19) 03/27/24 16:47 BUN 7 mg/dL (6-20) 03/27/24 16:47 Creatinine 0.3 mg/dL (0.5-0.9) L 03/27/24 16:47 GFR Calculation 268.9 mL/min (90-130) H 03/27/24 16:47 Glucose 89 mg/dL (65-115) 03/27/24 16:47 Calculated Osmolality 283 mOsm/kg (285-295) L 03/27/24 16:47 Calcium 8.5 mg/dL (8.5-10.5) 03/27/24 16:47 Total Bilirubin 0.2 mg/dL (0.15-1.2) 03/27/24 16:47 AST 11 U/L (0-32) 03/27/24 16:47 ALT 10 U/L (0-33) 03/27/24 16:47 Alkaline Phosphatase 70 U/L (35-105) 03/27/24 16:47 Total Protein 7.2 g/dL (6.6-8.7) 03/27/24 16:47 Albumin 4.0 g/dL (3.5-5.2) 03/27/24 16:47 Globulin 3.2 g/dL (1.3-4.6) 03/27/24 16:47 Urine Color Yellow (Yellow) 03/27/24 16:50 Urine Appearance Slightly cloudy (CLEAR) 03/27/24 16:50 Urine pH 7 (5-7) 03/27/24 16:50 Ur Specific [place] 1.015 (1.005-1.030) 03/27/24 16:50 Urine Protein Neg (Negative) 03/27/24 16:50 Urine Glucose (UA) Norm (Normal) 03/27/24 16:50 Urine Ketones Negative (Negative) 03/27/24 16:50 Urine Blood Neg (Negative) 03/27/24 16:50 Urine Nitrate Negative (Negative) 03/27/24 16:50 Urine Bilirubin Neg (Negative) 03/27/24 16:50 Urine Urobilinogen Norm mg/dL (Negative) 03/27/24 16:50 Ur Leukocyte Esterase Negative (Negative) 03/27/24 16:50 Urine RBC Rare /hpf (0-2) 03/27/24 16:50 Urine WBC 0-4 /hpf (0-5) H 03/27/24 16:50 Ur Squamous Epith Cells 0-4 /hpf (0-5) H 03/27/24 16:50 Amorphous Sediment 2+ /hpf 03/27/24 16:50 Urine Bacteria 1+ /hpf (NONE) H 03/27/24 16:50 Urine Mucus 1+ /hpf 03/27/24 16:50 All radiology interpretation(s) finalized by discharge Discharge Plan Discharge Patient Disposition: Home Clinical Impression: Dehydration, Vasovagal syncope, Urinary tract infection, , Contact dermatitis Condition: Stable Prescriptions: New cephalexin 500 mg capsule 500 mg PO BID 5 Days Qty: 10 0RF triamcinolone acetonide 0.1 % ointment 1 applic topical TID Qty: 30 0RF No Action DHA 200 mg capsule 200 mg PO DAILY hydroxyzine HCl 10 mg tablet 10 mg PO BEDTIME sertraline [Zoloft] 25 mg tablet 25 mg PO DAILY Qty: 30 1RF azithromycin [Zithromax Z-Dragan] 250 mg tablet See Rx Instructions PO .COMPLEX Qty: 6 0RF Rx Instructions: take 500 mg today (day 1), then 250 mg for 4 days (days 2-5) PO acetaminophen 325 mg capsule 325 mg PO Q4H PRN (Reason: fever or pain) Qty: 60 0RF docusate sodium 50 mg Capsule 50 mg PO DAILY Discharge Orders: Discharge ED (Routine); Ordered 03/27/24 Ordered By: Isabella Mathew Referrals: Enoch De Jesus MD [Primary Care Provider] - 4-7 days Discharge Diet: Advance as tolerated Discharge Activity: Resume usual activity Patient Instructions: Urinary Tract Infection in (ED), at 19 to 22 Weeks (ED) Activity Restrictions/Additional Instructions: Thank you for choosing [facility] for your healthcare needs today. Please realize this is an emergency room and that we are providing you with a medical screening exam and this may not be complete and all inclusive of all the testing and or work up that you may need to determine your ailment or severity of your illness. You have been screened and evaluated and felt safe for discharge. Health conditions do change or evolve sometimes and as such it is important that you follow up with your Primary Doctor to be re checked, 3-5 days is a general good time frame for follow up. You are always welcome to return to the ED for re assessment if your symptoms are worsening or you have new concerns Stand Alone Forms: Work/School Release Coding Level of Care Code ED Collision Repairer for Basil Bowman
[2024-03-27 17:10] LABS: Basophils % 0.3 %; Eosinophils # 0.4 10^3/uL (0.0-0.8); Eosinophils % 3.4 %; Hematocrit 32.5 % (36-47); Lymphocytes # 2.4 10^3/uL (0.8-4.8); Lymphocytes % 21.2 %; Mean Corpuscular HGB Conc 33.8 g/dL (30-55); Mean Corpuscular Hemoglobin 31.8 pg (27-33); Mean Corpuscular Volume 93.9 fl (85-98); Monocytes # 0.8 10^3/uL (0.2-0.9); Monocytes % 7.2 %; Neutrophils # 7.79 10^3/uL (1.8-7.7); Neutrophils % 67.6 %; Nucleated Red Blood Cells % 0 %; Platelet Count 505 10^3/cmm (157-399); Red Blood Count 3.46 10^6/uL (3.85-5.65); Red Cell Distribution Width 13.4 % (12.1-15.1); White Blood Count 11.53 10^3/uL (3.29-11.43)
[2024-03-27 17:19] LABS: Alanine Aminotransferase 10 U/L (0-33); Alkaline Phosphatase 70 U/L (35-105); Anion Gap 13.8 (5-19); Aspartate Amino Transferase 11 U/L (0-32); Blood Urea Nitrogen 7 mg/dL (6-20); Calcium 8.5 mg/dL (8.5-10.5); Carbon Dioxide 25 mmol/L (22-29); Chloride 103 mmol/L (98-107); Creatinine Clr Calc Pharmacy 301.3913; Globulin 3.2 g/dL (1.3-4.6); Glomerular Filtration Rate 268.9 mL/min (90-130); Glucose 89 mg/dL (65-115); Osmolality Calculated 283 mOsm/kg (285-295); Potassium 3.8 mmol/L (3.5-5.1); Sodium 138 mmol/L (136-145); Total Bilirubin 0.2 mg/dL (0.15-1.2); Total Protein 7.2 g/dL (6.6-8.7)
[2024-03-27 17:24] LABS: Specific Gravity, Urine 1.015 (1.005-1.030); Urine Appearance Slightly Cloudy (CLEAR); Urine Color Yellow (Yellow); pH Urine 7 (5-7)
[2024-03-27 17:25] LABS: Amorphous Sediment Urine 2+ /hpf; Bacteria Urine 1+ /hpf; Bilirubin Urine Neg (Negative); Blood Urine Neg (Negative); Glucose Urine UA Norm (Normal); Ketones Urine Negative (Negative); Leukocyte Esterase Urine Negative (Negative); Mucus Urine 1+ /hpf; Nitrate Urine Negative (Negative); Protein Urine Neg (Negative); RBC Urine RARE /hpf (0-2); Squamous Epithelial Cell Urine 0-4 /hpf (0-5); Urobilinogen Urine Norm (Negative); WBC Urine 0-4 /hpf (0-5)
[2024-03-27 17:33] VITALS: BP 114/62; BP 123/72; BP 125/67; PULSE 73; PULSE 78; PULSE 80
[2024-03-27] MEDS: sodium chloride 0.9% 1,000 ML 999 ML IV (17:54)
[2024-03-27] MEDS: dexamethasone 10 mg/mL INJ IVP (17:55)
[2024-03-27] MEDS: cefTRIAXone 1,000 MG in sodium chloride 0.9% (plus) 50 ML 100 MG IV (17:58)
[2024-03-27 19:12] VITALS: BP 127/74; PULSE 81; RESP 16; O2SAT 99
== END 2024-03-27 19:13 | disposition home or self-care (01) ==
PROVIDERS: Emergency Provider Emergency Medicine; PCP Obstetrics & Gynecology
DX: O26.892 Other specified pregnancy related conditions, second trimester (principal); O23.42 Unspecified infection of urinary tract in pregnancy, second trimester; N39.0 Urinary tract infection, site not specified; Z3A.21 21 weeks gestation of pregnancy; E86.0 Dehydration; R55 Syncope and collapse; L25.9 Unspecified contact dermatitis, unspecified cause
CPT/HCPCS: 80053; 81001; 85025; 93005; 96374; 96375; 99284; J0696; J1100; J7030

== ENCOUNTER 2024-04-09 12:56 | Oncology outpatient (recurring) (ONCR) | payer OTHER, MEDICAID, SELFPAY ==
[2024-04-09 14:19] LABS: Basophils # 0.1 10^3/uL (0.0-0.1); Basophils % 0.4 %; Eosinophils # 0.1 10^3/uL (0.0-0.8); Eosinophils % 0.5 %; Hematocrit 32.1 % (36-47); Lymphocytes # 2.8 10^3/uL (0.8-4.8); Lymphocytes % 20.9 %; Mean Corpuscular Hemoglobin 31.8 pg (27-33); Mean Corpuscular Volume 93.6 fl (85-98); Mean Platelet Volume 9.8 fL (7.4-10.4); Monocytes % 7.5 %; Neutrophils # 9.58 10^3/uL (1.8-7.7); Neutrophils % 70.3 %; Nucleated Red Blood Cells % 0 %; Platelet Count 465 10^3/cmm (157-399); Red Blood Count 3.43 10^6/uL (3.85-5.65); Red Cell Distribution Width 13.2 % (12.1-15.1); White Blood Count 13.61 10^3/uL (3.29-11.43)
[2024-04-09 14:39] LABS: Iron 74 ug/dL (37-145); Total Iron Binding Capacity 409 mcg/dl; Unsaturated Iron Binding 335 ug/dL (112-347)
[2024-04-09 15:03] LABS: LAB Peripheral Smear Sent for Review
== END 2024-04-29 23:59 | disposition home or self-care (01) ==
PROVIDERS: PCP Obstetrics & Gynecology; Visit Provider Internal Medicine Medical Oncology
DX: D75.839 Thrombocytosis, unspecified (principal)
CPT/HCPCS: 36415; 83540; 83550; 85025

== ENCOUNTER → 2024-04-16 14:20 | Outpatient (BNVA) | payer OTHER, MEDICAID, SELFPAY | PROVIDERS: PCP Obstetrics & Gynecology; Visit Provider Obstetrics & Gynecology | DX: Z34.92 Encounter for supervision of normal pregnancy, unspecified, second trimester (principal); Z3A.25 25 weeks gestation of pregnancy | CPT/HCPCS: 76816 ==

== ENCOUNTER → 2024-04-19 07:54 | Outpatient (BNVA) | payer OTHER, MEDICAID, SELFPAY | PROVIDERS: PCP Obstetrics & Gynecology; Visit Provider Obstetrics & Gynecology | DX: Z34.80 Encounter for supervision of other normal pregnancy, unspecified trimester (principal); Z3A.00 Weeks of gestation of pregnancy not specified | CPT/HCPCS: 82951; 82952; 84315 ==

== ENCOUNTER → 2024-05-11 15:42 | Outpatient (BNVA) | payer OTHER, MEDICAID, SELFPAY | PROVIDERS: PCP Obstetrics & Gynecology; Visit Provider Obstetrics & Gynecology | DX: Z34.80 Encounter for supervision of other normal pregnancy, unspecified trimester (principal); Z3A.00 Weeks of gestation of pregnancy not specified | CPT/HCPCS: 87086 ==

== ENCOUNTER 2024-06-03 19:09 | Outpatient (CLI) | payer OTHER, MEDICAID, SELFPAY ==
[2024-06-03] VITALS (15 sets, daily range): BP systolic 97–121; BP diastolic 53–66; PULSE 60–75; RESP 16; TEMP 35.5–36.1; BMI 36.5
[2024-06-03 19:41] LABS: Bilirubin Urine Negative (Negative); Blood Urine Negative (Negative); Glucose Urine UA Negative (Normal); Ketones Urine Trace (Negative); Leukocyte Esterase Urine Negative (Negative); Nitrate Urine Negative (Negative); Protein Urine Negative (Negative); Specific Gravity, Urine 1.005 (1.005-1.030); Urine Appearance Clear (CLEAR); Urine Color Yellow (Yellow); Urobilinogen Urine 0.2 mg/dL (Negative)
[2024-06-03 19:58] LABS: Glucose Point of Care 116 mg/dL (70-110)
[2024-06-03] MEDS: acetaminophen 500 mg Tablet 1000 MG PO (20:15)
[2024-06-03] MEDS: NIFEdipine 10 mg Capsule 30 MG PO (22:38)
== END 2024-06-03 23:07 | disposition home or self-care (01) ==
LOC: OPOB 19:10 → OBGYN 19:10
PROVIDERS: PCP Obstetrics & Gynecology; Visit Provider Pharmacist
DX: O26.899 Other specified pregnancy related conditions, unspecified trimester (principal); Z3A.00 Weeks of gestation of pregnancy not specified; R10.2 Pelvic and perineal pain
CPT/HCPCS: 36416; 59025; 81001; 82962; 99211

== ENCOUNTER 2024-06-04 06:00 | Outpatient (CLI) | payer OTHER, MEDICAID, SELFPAY | END 2024-06-04 06:01 | disposition home or self-care (01) | PROVIDERS: PCP Obstetrics & Gynecology; Visit Provider Obstetrics & Gynecology | DX: Z34.80 Encounter for supervision of other normal pregnancy, unspecified trimester (principal) | CPT/HCPCS: 84315; 85025 ==

== ENCOUNTER 2024-06-08 10:01 | Outpatient (CLI) | payer OTHER, MEDICAID, SELFPAY ==
[2024-06-08] VITALS (7 sets, daily range): BP systolic 103–116; BP diastolic 56–63; PULSE 68–82; RESP 16; BMI 35.7
[2024-06-08 11:05] LABS: Nitrazine Paper, PH Negative
[2024-06-08 11:07] LABS: Bilirubin Urine Negative (Negative); Blood Urine Negative (Negative); Glucose Urine UA Negative (Normal); Ketones Urine Trace (Negative); Leukocyte Esterase Urine Trace (Negative); Nitrate Urine Negative (Negative); Protein Urine Trace (Negative); Specific Gravity, Urine 1.018 (1.005-1.030); Urine Appearance Cloudy (CLEAR); Urine Color Yellow (Yellow); pH Urine 7.5 (5-7)
[2024-06-08 11:09] LABS: Bacteria Urine 1+ /hpf; Hyaline Casts Urine 1.21 /lpf; RBC Urine 0-2 /hpf (0-2); Squamous Epithelial Cell Urine 21-50 /hpf (0-5)
== END 2024-06-08 12:25 | disposition home or self-care (01) ==
LOC: OPOB 10:03 → OBGYN 10:04
PROVIDERS: PCP Obstetrics & Gynecology; Visit Provider Obstetrics & Gynecology
DX: O26.899 Other specified pregnancy related conditions, unspecified trimester (principal); Z3A.00 Weeks of gestation of pregnancy not specified; R10.2 Pelvic and perineal pain
CPT/HCPCS: 59025; 81001; 83986; 99211

== ENCOUNTER 2024-06-19 10:55 | Outpatient (CLI) | payer OTHER, MEDICAID, SELFPAY ==
[2024-06-19] VITALS (8 sets, daily range): BP systolic 103–118; BP diastolic 52–63; PULSE 70–90; BMI 36.1
[2024-06-19 11:48] LABS: Bilirubin Urine Neg (Negative); Blood Urine Neg (Negative); Glucose Urine UA Norm (Normal); Ketones Urine Negative (Negative); Leukocyte Esterase Urine Trace (Negative); Nitrate Urine Negative (Negative); Protein Urine Neg (Negative); Specific Gravity, Urine 1.015 (1.005-1.030); UA Manual Slide Review YES; UA Slide Review UA Slide Review Perf; Urine Appearance Slightly Cloudy (CLEAR); Urine Color Yellow (Yellow); Urobilinogen Urine Norm (Negative); pH Urine 7 (5-7)
[2024-06-19 11:54] LABS: Add Urine Culture? No; Amorphous Sediment Urine TRACE /hpf; Bacteria Urine TRACE /hpf; Calcium Oxalate Crystals Urine 0-4 /hpf; Mucus Urine TRACE /hpf; Oval Fat Bodies Urine RARE /hpf; RBC Urine 0-4 /hpf (0-2); Transitional Epi Cells Urine 0-4 /hpf; WBC Urine 0-4 /hpf (0-5)
== END 2024-06-19 13:05 | disposition home or self-care (01) ==
LOC: OPOB 10:59 → OBGYN 11:00
PROVIDERS: Visit Provider Obstetrics & Gynecology
DX: O26.899 Other specified pregnancy related conditions, unspecified trimester (principal); Z3A.00 Weeks of gestation of pregnancy not specified; R10.2 Pelvic and perineal pain; R10.9 Unspecified abdominal pain; M54.9 Dorsalgia, unspecified
CPT/HCPCS: 59025; 81001; 99211

== ENCOUNTER → 2024-07-13 07:57 | Outpatient (BNVA) | payer OTHER, MEDICAID, SELFPAY | PROVIDERS: Visit Provider Obstetrics & Gynecology | DX: Z34.80 Encounter for supervision of other normal pregnancy, unspecified trimester (principal) | CPT/HCPCS: 84315; 87081 ==

== ENCOUNTER 2024-07-20 16:10 | Outpatient (CLI) | payer OTHER, MEDICAID, SELFPAY ==
[2024-07-20 16:22] VITALS: BP 129/60; PULSE 74
--- NOTE | 2024-07-20 16:22 | USR_ITS ---
PROCEDURE INFORMATION: Exam: US Biophysical Profile Without Non-Stress Test Exam date and time: 07/20/2024 4:59 PM Age: 24 years old Clinical indication: Condition or disease; Other: Gd; ; Additional info: Gestational diabetes TECHNIQUE: Imaging protocol: US biophysical profile without non-stress testing. COMPARISON: [place] [id number] 04/16/2024 2:27 PM FINDINGS: heart rate: 125 bpm. 125 bpm. Placenta: The placenta is fundal/anterior. Single live intrauterine in the vertex position. BIOPHYSICAL PROFILE: breathing (BPP): 2 out of 2. gross body movement (BPP): 2 out of 2. tone (BPP): 2 out of 2. Amniotic fluid (BPP): 2 out of 2. MATERNAL ANATOMY: Cervix: Cervical length measures 4.4 cm. Cervix appears closed measuring 4.4 cm in length. US/US OB BPP wo NST [id number] IMPRESSION: Normal biophysical profile of 06/07.
[2024-07-20 16:23] VITALS: RESP 17; BMI 37.0
[2024-07-20 16:36] VITALS: BP 135/65; PULSE 58
[2024-07-20 16:51] VITALS: BP 126/66; PULSE 66
[2024-07-20 17:42] VITALS: BP 111/57; PULSE 62
[2024-07-20 17:55] VITALS: BP 111/57; PULSE 62; RESP 16
== END 2024-07-20 17:55 | disposition home or self-care (01) ==
LOC: OPOB 16:14 → OBGYN 16:15
PROVIDERS: Visit Provider Obstetrics & Gynecology
DX: O24.419 Gestational diabetes mellitus in pregnancy, unspecified control (principal); Z3A.00 Weeks of gestation of pregnancy not specified
CPT/HCPCS: 59025; 76819; 84315; 99211

== ENCOUNTER 2024-07-25 14:49 | Outpatient (CLI) | payer OTHER, MEDICAID, SELFPAY ==
[2024-07-25 14:59] VITALS: BP 117/59; PULSE 70
[2024-07-25 15:00] VITALS: BMI 36.5
[2024-07-25 15:18] VITALS: BP 118/67; PULSE 67
== END 2024-07-25 15:31 ==
LOC: OPOB 14:54 → OBGYN 14:55
PROVIDERS: Visit Provider Obstetrics & Gynecology
DX: O24.419 Gestational diabetes mellitus in pregnancy, unspecified control (principal); Z3A.00 Weeks of gestation of pregnancy not specified
CPT/HCPCS: 59025; 84315

== ENCOUNTER 2024-07-27 07:06 | Inpatient (IN) | payer MEDICAID, SELFPAY ==
[2024-07-27] VITALS (50 sets, daily range): BP systolic 103–145; BP diastolic 46–83; PULSE 48–137; RESP 18; O2SAT 97–99; BMI 36.7
[2024-07-27 08:21] LABS: Glucose Point of Care 96 mg/dL (70-110)
[2024-07-27 08:25] LABS: Basophils % 0.5 %; Eosinophils # 0.1 10^3/uL (0.0-0.8); Eosinophils % 0.7 %; Hematocrit 32.6 % (36-47); Lymphocytes # 1.8 10^3/uL (0.8-4.8); Lymphocytes % 21.1 %; Mean Corpuscular HGB Conc 33.4 g/dL (30-55); Mean Corpuscular Hemoglobin 30.2 pg (27-33); Mean Corpuscular Volume 90.3 fl (85-98); Mean Platelet Volume 12.1 fL (7.4-10.4); Monocytes # 0.8 10^3/uL (0.2-0.9); Monocytes % 8.9 %; Neutrophils # 5.99 10^3/uL (1.8-7.7); Neutrophils % 68.6 %; Nucleated Red Blood Cells % 0 %; Platelet Count 336 10^3/cmm (157-399); Red Blood Count 3.61 10^6/uL (3.85-5.65); Red Cell Distribution Width 13.5 % (12.1-15.1); White Blood Count 8.73 10^3/uL (3.29-11.43)
--- NOTE | 2024-07-27 09:50 | PM.OBGYHP ---
Providers/Chief Complaint Admitting Physician: Jericho Batres MD Primary FORENSIC ACCOUNTANT: Enoch De Jesus MD Chief Complaint: IOL HPI FORENSIC ACCOUNTANT History of Present Illness Rebekah Aldridge is a 24 year old female EDC August 08, 2024 At 38 w 2 d complicated by GDM, on glyburide 5 mg po daily Admitted for induction of labor POBHx: , 11-30-21 PSHx: splenectomy and partial pancreatectomy 06-28-23 NKDA Present Details : 2 Para: 1 Labs Rubella: Immune RPR: Negative GBS: Negative Medications/Allergies Home Medications Medication Instructions Recorded Confirmed Last Taken Type acetaminophen 325 mg capsule 325 mg PO Q4H PRN fever or pain 06/30/22 07/25/24 Unknown Rx #60 caps docosahexaenoic acid 200 mg 200 mg PO DAILY 12/20/23 07/25/24 07/25/24 History capsule ( DHA) hydroxyzine HCl 10 mg tablet 10 mg PO BEDTIME 01/04/24 07/25/24 07/25/24 History cetirizine 10 mg capsule (All Day 10 mg PO DAILY PRN Itching 06/14/24 07/25/24 07/25/24 History Allergy (cetirizine)) glyburide 5 mg tablet 5 mg PO DAILY 07/25/24 07/25/24 07/25/24 History sertraline 25 mg tablet (Zoloft) 50 mg PO DAILY 07/25/24 07/25/24 07/25/24 History Allergies Allergy/AdvReac Type Severity Reaction Status Date / Time No Known Allergies Allergy Verified 07/25/24 14:04 PFS FORENSIC ACCOUNTANT PFSH: Medical History Anxiety and depression No pertinent past medical history Neg. Hx: HTN, DM, DVT/PE PCP: Dr. 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 De Jesus. No findings; normal anatomy. 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 Estimated Delivery Date Method Current WG Current Estimate 08/08/24 LMP (Certain) 38w 2d Other Estimates 08/07/24 Ultrasound #1 38w 3d Specific Issues/Plans GDM; MANAGED BY MFM OBESITY-- 3 HOUR GTT at 10 weeks; all 3 levels normal; REPEAT 3 HOUR AT 24 WEEKS Depression/anxiety Elevated platelets Vitals/I&O/Wt Last Vital Signs Pulse 75 07/27/24 12:13 Resp 18 07/27/24 08:12 BP 131/83 07/27/24 12:13 O2 Del Method Room Air 07/27/24 12:20 07/26/24 07/27/24 07/27/24 22:59 06:59 14:59 Intake Total 240 / 240 Balance 240 / 240 Weight last 48 hrs Weight 207 lb 5 oz Physical Exam Narrative: Weight 210 lbs; VS normal General comfortable Lungs: clear Cor RRR Abd: nontender Cervix: 4-5 cm / 50 / -3 Ext: no edema External monitor: heart tracing good variability, + accelerations Data 07/27/24 07:45 Results Labs OB ([facility]): Obstetrics US 04/16/24 Obstetrics US/Biophysical Profile 07/20/24 Blood Type A Positive 07/27/24 Antibody Screen Negative 07/27/24 Hct 32.6 % (36-47) L 07/27/24 Hgb 10.90 g/dL (11.27-16.99) L 07/27/24 Rho(D) Type Rh positive 07/27/24 Plt Count 336 10^3/cmm (157-399) 07/27/24 Hep Bs Antigen Non-reactive (Nonreactive) 01/13/24 Hepatitis C Antibody Non-reactive (Nonreactive) 01/13/24 Rubella IgG Antibody 55.2 IU/mL (0.0-10.0) H 01/13/24 RPR Nonreactive (Nonreactive) 01/13/24 HIV 1&2 Ab & HIV 1 Ag Non-reactive (Non-Reactiv) 01/13/24 TSH 1.64 uIU/mL (0.27-4.20) 04/27/22 C.trachomatis RNA (TMA) Not detected (NOT DETECTED) 02/24/24 N.gonorrhoeae RNA (TMA) Not detected (NOT DETECTED) 02/24/24 T. vaginalis Amp RNA Not detected (NOT DETECTED) 02/24/24 Chlamydia/GC Comment See note 02/24/24 Glucose 1 Hr 50 gm 154 mg/dL (85-140) H 01/13/24 Gest Glucose Tolerance mg/dL 04/19/24 Ser , Semi-Qnt 029776.00 mIU/mL 04/20/21 HCG, Qual Positive (Negative) H 12/20/23 Urine Opiates Screen Negative ng/mL (Negative) 01/13/24 Ur Barbiturates Screen Negative ng/mL (Negative) 01/13/24 Ur Phencyclidine Scrn Negative ng/mL (Negative) 01/13/24 Ur Amphetamines Screen Negative ng/mL (Negative) 01/13/24 U Benzodiazepines Scrn Negative ng/mL (Negative) 01/13/24 Urine Cocaine Screen Negative ng/mL (Negative) 01/13/24 U Marijuana (THC) Screen Negative ng/mL (Negative) 01/13/24 Micro Urine Specimen 05/11/24 Pap Smear Interpret See note 01/27/24 A&P Assessment and plan (1) Supervision of other normal : 38 w 2 d (2) Gestational diabetes: Fetus reassuring Admit for labor induction Plan start Pitocin per protocol Qualifiers: Gestational diabetes mellitus control: diet-controlled Trimester: second trimester Qualified Code(s): O24.410 - Gestational diabetes mellitus in , diet controlled Attestations Medical Necessity Statement*: patient at 38 w 2 d with GDM, admitted for induction of labor Coding Level of Care Code Acute Code for Chg Fwd Diagnoses Supervision of other normal Z34.80 Diet controlled gestational diabetes mellitus (GDM) in second trimester O24.410 Gestational diabetes mellitus control: diet-controlled Trimester: second trimester Time Spent (min) 60
[2024-07-27] MEDS: lactated ringers 1,000 ML 125 ML IV (10:00)
[2024-07-27] MEDS: oxytocin 30 UNIT/500 ML BAG IV (10:00)
[2024-07-27] MEDS: dextrose 5%-lactated ringers 1,000 ML 125 ML IV (14:28)
[2024-07-27] MEDS: acetaminophen 325 mg Tablet 650 MG PO (14:29)
[2024-07-27 14:30] LABS: Glucose Point of Care 76 mg/dL (70-110)
[2024-07-27 18:08] LABS: Glucose Point of Care 117 mg/dL (70-110)
[2024-07-27] MEDS: hyDROXYzine 25 mg Capsule 50 MG PO (18:10)
--- NOTE | 2024-07-27 18:50 | PM.OBGYPN ---
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: Interval history: Fetus reassuring Mild UCs Cervix: 4 / 50 / -2 / posterior AROM, clear fluid Labor: Station: -2 Amniotic Membrane Status: Ruptured Monitor Mode: External Contraction Pattern: Regular Vitals/I&O/Wt Last Vital Signs Pulse 76 07/27/24 19:37 Resp 18 07/27/24 08:12 BP 127/76 07/27/24 19:37 O2 Del Method Room Air 07/27/24 17:32 07/27/24 07/27/24 07/27/24 06:59 14:59 22:59 Intake Total 827.333 / 827.333 240 / 1067.333 Balance 827.333 / 827.333 240 / 1067.333 Weight last 48 hrs Weight 207 lb 5 oz Data 07/27/24 07:45 A&P Assessment and plan (1) Supervision of other normal : (2) Gestational diabetes: Qualifiers: Gestational diabetes mellitus control: diet-controlled Trimester: second trimester Qualified Code(s): O24.410 - Gestational diabetes mellitus in , diet controlled Attestations Medical Necessity Statement*: patient at 38 w 2 d, with gestational diabetes, admitted for induction of labor Coding Level of Care Code Acute Code for Chg Fwd Diagnoses Supervision of other normal Z34.80 Diet controlled gestational diabetes mellitus (GDM) in second trimester O24.410 Gestational diabetes mellitus control: diet-controlled Trimester: second trimester Time Spent (min) 30
[2024-07-27] MEDS: lactated ringers 1,000 ML 999 ML IV (19:35)
[2024-07-27] MEDS: ROPivacaine syringe 100 MG/50 ML SYRINGE 10 MG EPIDURAL (20:47)
--- NOTE | 2024-07-27 20:50 | P.ANESASSM_ITS ---
Pre-Anesthetic Assessment Height/Weight: Height 1.6 m Weight 94.035 kg Pulse Resp BP Pulse Ox O2 Del Method 75 18 122/66 99 Room Air 07/27/24 20:46 07/27/24 08:12 07/27/24 20:46 07/27/24 20:42 07/27/24 17:32 Preop Diagnosis: IUP Labor Epidural Familial anesthetic complications: None Was Beta Florian taken within 24 hours: N/A Was Clonidine taken within 24 hours: N/A Last intake: 07/27/24 1800 MEAL CLEARS- CURRENT Social No alcohol and No tobacco Exam alert, oriented x 3 and clear to auscultation bilaterally Airway Submandibular: within normal limits Cervical ROM: within normal limits Mallampati: Class II Dentition: full History/ROS No significant history except as noted Pulmonary None reported CV/HEM None reported None reported Hepatic None reported GI Gastroesophageal Reflux Disease Metabolic Diabetes Mellitus (Gestational) Musc/skel None reported Neuropsych Anxiety and Depression Anesthetic Plan ASA status: 2 Anesthesia: Regional (specify below) Other: Labor Epidural Medications/Allergies Home Medications Medication Instructions Recorded Confirmed Last Taken Type acetaminophen 325 mg capsule 325 mg PO Q4H PRN fever or pain 06/30/22 07/27/24 Unknown Rx #60 caps docosahexaenoic acid 200 mg 200 mg PO DAILY 12/20/23 07/25/24 07/26/24 08:00 History capsule ( DHA) hydroxyzine HCl 10 mg tablet 10 mg PO BEDTIME 01/04/24 07/27/24 07/26/24 22:00 History cetirizine 10 mg capsule (All Day 10 mg PO DAILY PRN Itching 06/14/24 07/27/24 07/26/24 08:00 History Allergy (cetirizine)) glyburide 5 mg tablet 5 mg PO DAILY 07/25/24 07/27/24 07/26/24 20:00 History sertraline 25 mg tablet (Zoloft) 50 mg PO DAILY 07/25/24 07/25/24 07/27/24 06:00 History Allergies Allergy/AdvReac Type Severity Reaction Status Date / Time No Known Allergies Allergy Verified 07/25/24 14:04 Current Medications Generic Name Dose Route Start Last Admin Trade Name Freq PRN Reason Stop Dose Admin Acetaminophen 650 mg 07/27/24 08:12 07/27/24 14:29 Acetaminophen 325 Mg Tablet PO 650 mg Q6H PRN Administration Mild pain or temp > 100.4 Hydroxyzine Pamoate 50 mg 07/27/24 08:12 07/27/24 18:10 Hydroxyzine 25 Mg Capsule PO 50 mg QID PRN Administration sleep, agitation or itching Oxytocin 30 unit in 500 mls @ 1 mls/hr 07/27/24 08:15 07/27/24 14:00 Pitocin IV 12 milliunit/min .Q24H JONN 12 mls/hr Titration Protocol 1 MILLIUNIT/MIN Dextrose/Lactated Ringer's 1,000 mls @ 125 mls/hr 07/27/24 08:15 07/27/24 14:28 Dextrose 5%-Lactated Ringers IV 125 mls/hr .Q8H JONN Administration Lactated Ringer's 1,000 mls @ 125 mls/hr 07/27/24 10:00 07/27/24 14:28 Lactated Ringers IV 0 mls/hr .Q8H JONN Infusion Lactated Ringer's 1,000 mls @ 999 mls/hr 07/27/24 19:29 07/27/24 19:35 Lactated Ringers IV 999 mls/hr .Q1H1M PRN Administration See label comments Ropivacaine 100 mg in 50 mls @ 10 mls/hr 07/27/24 19:30 07/27/24 20:47 Naropin Syringe EPIDURAL 10 mls/hr .Q5H JONN Administration PFSH Anesthesia Medical History Anxiety and depression No pertinent past medical history Neg. Hx: HTN, DM, DVT/PE PCP: Dr. 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 De Jesus. No findings; normal anatomy. History of ear surgery Family History Grandmother Diabetes maternal Hypertension maternal Family/Other Colon cancer maternal uncle Ovarian cancer paternal great aunt, onset unknown Grandfather Heart disease Denies family history of Breast cancer Uterine cancer Thyroid disease Stroke Social History Smoking and tobacco/nicotine status: never used tobacco/nicotine Female Reproductive History : 2 Data Anesthesia 07/27/24 07:45 Short CBC 07/27/24 Range/Units 07:45 WBC 8.73 (3.29-11.43) 10^3/uL Hgb 10.90 L (11.27-16.99) g/dL Hct 32.6 L (36-47) % MCV 90.3 (85-98) fl Plt Count 336 (157-399) 10^3/cmm Neut % (Auto) 68.6 % Neut # (Auto) 5.99 (1.8-7.7) 10^3/uL Blood Bank 07/27/24 07:45 Blood Type A Positive Rho(D) Type Rh positive Antibody Screen Negative Cardiac Studies: 2 No Data to Display Anesthesia Procedures Epidural Time Out Performed: Yes Consents Signed: Procedure Consent Consent: from patient, risks and benefits reviewed and patient agrees to proceed Lumbar Level: L3-L4 Epidural position: sitting Epidural procedure: sterile prep of area, 1% lidocaine to numb the area, negative for paresthesia passed, test dose given, 1.5% xylocaine 1:200k epi (5ml), 0.2% Ropivacaine bolus ml (5), no systemic response, sterile dressing applied, L.U.D. no apparent complications and 0.2% Ropiavacaine @ mls/hr (10ml/hr) Additional Comments: ANGLE at 7cm on first attempt- catheter threaded to 12cm after test dose 100 mcg Fentanyl given via epidural, remaining saline and lidocaine from kit given.
--- NOTE | 2024-07-27 21:52 | P.PN_ITS ---
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 5ml 2% Lidocaine given via epidural patient progressed to pushing while TAIL BOARD WORKER was at bedside. VSS Dr. Batres present. Vitals/I&O/Wt Last Vital Signs Pulse 48 L 07/27/24 21:22 Resp 18 07/27/24 08:12 BP 127/65 07/27/24 21:22 Pulse Ox 98 07/27/24 21:14 O2 Del Method Room Air 07/27/24 17:32 07/27/24 07/27/24 07/27/24 06:59 14:59 22:59 Intake Total 827.333 / 827.333 240 / 1067.333 Balance 827.333 / 827.333 240 / 1067.333 Weight last 48 hrs Weight 94.035 kg Physical Exam 2 Const: COMMON NORMALS: alert Resp: COMMON NORMALS: clear to auscultation bilaterally AUSCULTATION: clear to auscultation bilaterally Neuro: SENSORIUM/ORIENTATION: Yes alert Data 07/27/24 07:45 Attestations 2 Medical Necessity Statement*: n/a Coding Level of Care Code Acute Code for Chg Fwd
[2024-07-27] MEDS: oxytocin 30 UNIT/500 ML BAG 600 UNIT IV (22:00)
[2024-07-27] MEDS: lidocaine 2% INJ 20 mL INJECTION (22:06)
--- NOTE | 2024-07-27 22:15 | PM.DELIVERY ---
Delivery Note: Date of delivery: July 27, 2024 Pre-delivery diagnoses: 38 w 2 d gestational diabetes induction of labor Post-delivery diagnoses: 38 w 2 d gestational diabetes induction of labor vaginal delivery second-degree perineal laceration repaired Procedure: induction of labor vaginal delivery repair of second-degree perineal laceration Op report anesthesia: None Delivering Physician: Jericho Batres MD Estimated blood loss (mL): 300 Findings: , vigorous male infant + nuchal cord + true knot in cord Cord gases obtained Normal placenta and cord Second-degree perineal laceration repaired 10 cc of lidocaine 1% given for repair EBL: 300 cc No complications Pre-Delivery Course: normal labor course fetus reassuring throughout Delivery: vaginal Post-Delivery Status: good History History History 2 Term 1 0 Miscarriages/Ectopic 0 Living Children 1 A&P Assessment and plan (1) Vaginal delivery: Coding Level of Care Code Acute Code for Chg Fwd Diagnoses Vaginal delivery O80 Time Spent (min) 60
[2024-07-28] VITALS (9 sets, daily range): BP systolic 120–146; BP diastolic 65–84; PULSE 60–80; RESP 15–17; TEMP 36.6–36.8; O2SAT 97–98
[2024-07-28] MEDS: HYDROcodone-acetaminophen 5-325 mg Tablet PO (04:38)
--- NOTE | 2024-07-28 07:25 | ANE.PACU2 ---
Inpatient post-anesthesia follow up: Airway intact: Yes Vital signs: Temperature 98.0 F Pulse Rate 74 Respiratory Rate 16 Blood Pressure 128/80 Pulse Oximetry 99 Oxygen Delivery Me thod Room Air Oxygen Flow Rate Fraction of Inspir ed Oxygen Hydration adequate: Yes Nausea and vomiting: No Pain level: 1 Mental status: Baseline Epidural Start/End: Epidural Start Date: 07/27/24 Epidural Start Time: 20:23 Epidural End Date: 07/28/24 Epidural End Time: 08:29
[2024-07-28] MEDS: PRENATAL VIT NO.130/IRON/FOLIC 1 EACH TABLET PO (09:15)
[2024-07-28] MEDS: ibuprofen 800 mg tablet PO ×3 (09:15→20:04)
[2024-07-28] MEDS: docusate sodium 100 mg Capsule PO ×2 (09:15→20:04)
[2024-07-28 10:12] LABS: Hematocrit 28.6 % (36-47); Mean Corpuscular HGB Conc 33.6 g/dL (30-55); Mean Corpuscular Hemoglobin 30.8 pg (27-33); Mean Corpuscular Volume 91.7 fl (85-98); Mean Platelet Volume 11.2 fL (7.4-10.4); Platelet Count 273 10^3/cmm (157-399); Red Blood Count 3.12 10^6/uL (3.85-5.65); Red Cell Distribution Width 13.8 % (12.1-15.1); White Blood Count 13.73 10^3/uL (3.29-11.43)
--- NOTE | 2024-07-28 13:10 | P.PN_ITS ---
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: Interval history: c/o mild dizziness no palpitations, chest pain, shortness of breath, headaches no nausea, abdominal pain, bleeding normal lochia mild perineal pain, relieved with pain meds eating, voiding, ambulating well Labor: Station: +1 Amniotic Membrane Status: Ruptured Monitor Mode: External Contraction Pattern: Regular Vitals/I&O/Wt Last Vital Signs Temp 97.8 F 07/29/24 04:00 Pulse 70 07/29/24 04:00 Resp 14 07/29/24 04:00 BP 145/85 07/29/24 04:00 Pulse Ox 99 07/29/24 04:00 O2 Del Method Room Air 07/29/24 04:00 Physical Exam 2 Narrative: afebrile, VS normal comfortable, awake, alert Abd: soft, nontender. fundus firm Ext: no edema; nontender Data 07/28/24 09:53 A&P Assessment and plan (1) Vaginal delivery: PPD #1 doing well normal course continue care (2) Dizziness: anemia start iron supplements Attestations 2 Medical Necessity Statement*: patient s/p vaginal delivery Coding Level of Care Code Acute Code for Chg Fwd Diagnoses Vaginal delivery O80 Dizziness R42 Time Spent (min) 30
[2024-07-29 04:00] VITALS: BP 145/85; PULSE 70; RESP 14; TEMP 36.6; O2SAT 99
[2024-07-29] MEDS: ibuprofen 800 mg tablet PO (07:58)
[2024-07-29] MEDS: docusate sodium 100 mg Capsule PO (07:59)
[2024-07-29] MEDS: PRENATAL VIT NO.130/IRON/FOLIC 1 EACH TABLET PO (07:59)
[2024-07-29 11:15] VITALS: BP 128/80; PULSE 74; RESP 16; TEMP 36.7; O2SAT 99
--- NOTE | 2024-07-29 11:36 | P.PN_ITS ---
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 fundus firm Ext: no edema; nontender Data 07/28/24 09:53 A&P Assessment and plan (1) Vaginal delivery: PPD #2 doing well discharge to home today instructions and precautions given call/return if fever, chills, headache, blurry vision, nausea, vomiting, abdominal pain; vaginal bleeding or discharge; shortness of breath, chest pain, leg pains or swelling; inability to void, perineal pain or swelling; feelings of depression or mood changes; thoughts of suicide or harming others; inability to care for baby. f/u in 6 weeks or PRN (2) Dizziness: improved anemia Rx iron supplements Call / return if dizziness persists / worsens Attestations 2 Medical Necessity Statement*: patient s/p vaginal delivery, plan to discharge to home today Coding Level of Care Code Acute Code for Chg Fwd Diagnoses Vaginal delivery O80 Dizziness R42 Time Spent (min) 20
--- NOTE | 2024-07-29 11:40 | P.DS_ITS ---
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 at 38 w 2 d with gestational diabetes admitted for induction of labor patient with normal labor course fetus was reassuring patient delivered vaginally with no complications had repair of second-degree perineal laceration patient did well had mild anemia, will start iron supplements patient was discharged to home on second day Status: Acute (2) Dizziness: Details from hospital stay: patient with mild-moderate anemia will start iron supplementation Status: Acute Reason for Visit Reason for Visit: IOL Brief History: 24 y.o. at 38 w 2 d with gestational diabetes admitted for induction of labor Hospital Course Hospital Course 24 y.o. at 38 w 2 d with gestational diabetes admitted for induction of labor patient with normal labor course fetus was reassuring patient delivered vaginally with no complications had repair of second-degree perineal laceration patient did well had mild anemia, will start iron supplements patient was discharged to home on second day Information Peripartum Data: Infant Delivery Method: Vaginal Laceration description: P erineal - 2nd Degree Episiotomy description: None complications: none Physical Exam Narrative: afebrile, VS normal comfortable, awake, alert Abd: soft, nontender. fundus firm Ext: no edema; nontender History History History 2 Term 1 0 Miscarriages/Ectopic 0 Living Children 1 Discharge Data Studies Completed and Pending Laboratory Results WBC 13.73 10^3/uL (3.29-11.43) H 07/28/24 09:53 RBC 3.12 10^6/uL (3.85-5.65) L 07/28/24 09:53 Hgb 9.60 g/dL (11.27-16.99) L 07/28/24 09:53 Hct 28.6 % (36-47) L 07/28/24 09:53 MCV 91.7 fl (85-98) 07/28/24 09:53 MCH 30.8 pg (27-33) 07/28/24 09:53 MCHC 33.6 g/dL (30-55) 07/28/24 09:53 RDW 13.8 % (12.1-15.1) 07/28/24 09:53 Plt Count 273 10^3/cmm (157-399) 07/28/24 09:53 MPV 11.2 fL (7.4-10.4) H 07/28/24 09:53 Neut % (Auto) 68.6 % 07/27/24 07:45 Lymph % (Auto) 21.1 % 07/27/24 07:45 [place] % (Auto) 8.9 % 07/27/24 07:45 Eos % (Auto) 0.7 % 07/27/24 07:45 Baso % (Auto) 0.5 % 07/27/24 07:45 Neut # (Auto) 5.99 10^3/uL (1.8-7.7) 07/27/24 07:45 Lymph # (Auto) 1.8 10^3/uL (0.8-4.8) 07/27/24 07:45 [place] # (Auto) 0.8 10^3/uL (0.2-0.9) 07/27/24 07:45 Eos # (Auto) 0.1 10^3/uL (0.0-0.8) 07/27/24 07:45 Baso # (Auto) 0.0 10^3/uL (0.0-0.1) 07/27/24 07:45 Nucleated RBC % (auto) 0 % 07/27/24 07:45 Nucleated RBCs # 0.0 /100WBC 07/27/24 07:45 POC Glucose 117 mg/dL (70-110) H 07/27/24 18:05 Blood Type A Positive 07/27/24 07:45 Rho(D) Type Rh positive 07/27/24 07:45 Antibody Screen Negative 07/27/24 07:45 Procedures Performed induction of labor vaginal delivery repair of second-degree perineal laceration Vitals Last Vital Signs Temp 98.0 F 07/29/24 11:15 Pulse 74 07/29/24 11:15 Resp 16 07/29/24 11:15 BP 128/80 07/29/24 11:15 Pulse Ox 99 07/29/24 11:15 O2 Del Method Room Air 07/29/24 04:00 Results Labs OB ([facility]): Obstetrics US 04/16/24 Obstetrics US/Biophysical Profile Blood Type A Positive 07/27/24 Antibody Screen Negative 07/27/24 Hct 28.6 % (36-47) L 07/28/24 Hgb 9.60 g/dL (11.27-16.99) L 07/28/24 Rho(D) Type Rh positive 07/27/24 Plt Count 273 10^3/cmm (157-399) 07/28/24 Hep Bs Antigen Non-reactive (Nonreactive) 01/13/24 Hepatitis C Antibody Non-reactive (Nonreactive) 01/13/24 Rubella IgG Antibody 55.2 IU/mL (0.0-10.0) H 01/13/24 RPR Nonreactive (Nonreactive) 01/13/24 HIV 1&2 Ab & HIV 1 Ag Non-reactive (Non-Reactiv) 01/13/24 TSH 1.64 uIU/mL (0.27-4.20) 04/27/22 C.trachomatis RNA (TMA) Not detected (NOT DETECTED) N.gonorrhoeae RNA (TMA) Not detected (NOT DETECTED) T. vaginalis Amp RNA Not detected (NOT DETECTED) 02/24/24 Chlamydia/GC Comment See note 02/24/24 Glucose 1 Hr 50 gm 154 mg/dL (85-140) H 01/13/24 Gest Glucose Tolerance mg/dL 04/19/24 Ser , Semi-Qnt 949762.00 mIU/mL 04/20/21 HCG, Qual Positive (Negative) H 12/20/23 Urine Opiates Screen Negative ng/mL (Negative) 01/13/24 Ur Barbiturates Screen Negative ng/mL (Negative) 01/13/24 Ur Phencyclidine Scrn Negative ng/mL (Negative) 01/13/24 Ur Amphetamines Screen Negative ng/mL (Negative) 01/13/24 U Benzodiazepines Scrn Negative ng/mL (Negative) 01/13/24 Urine Cocaine Screen Negative ng/mL (Negative) 01/13/24 U Marijuana (THC) Screen Negative ng/mL (Negative) 01/13/24 Micro Urine Specimen 05/11/24 Pap Smear Interpret See note 01/27/24 Discharge Plan Discharge Patient Disposition: Home Condition: Stable Prescriptions: New ferrous fumarate 324 mg (106 mg iron) tablet 324 mg PO DAILY Qty: 90 3RF Continued DHA 200 mg capsule 200 mg PO DAILY hydroxyzine HCl 10 mg tablet 10 mg PO BEDTIME All Day Allergy (cetirizine) 10 mg capsule 10 mg PO DAILY PRN (Reason: Itching) sertraline [Zoloft] 25 mg tablet 50 mg PO DAILY acetaminophen 325 mg capsule 325 mg PO Q4H PRN (Reason: fever or pain) Qty: 60 0RF Discontinued glyburide 5 mg tablet 5 mg PO DAILY Discharge Orders: Discharge Order (Routine); Ordered 07/29/24 Ordered By: Jericho Batres Referrals: Jericho Batres MD [Physician] - (-CALL DR. BATRES'S OFFICE TUESDAY AND MAKE FOLLOW UP FOR 6 WEEKS. [phone]) Discharge Diet: Usual diet Discharge Activity: Increase activity as tolerated Patient Instructions: Depression (DC), Opioid Safety (DC), Preeclampsia and Eclampsia After Delivery (GEN), Hemorrhage (DC), OB Discharge Report, OB Food/Drug Interaction Guide, Opioid Safety, OB Home Care, OB Vaginal Deliveries - [facility], Abnormal Bleeding Discharge Attestations LINEMAN SERVICE OR WORK DISPATCHER Time Spent in Discharge Care*: less than 30 min Coding Level of Care Code Acute Code for Chg Fwd Diagnoses Vaginal delivery O80 Dizziness R42 Time Spent (min) 20
== END 2024-07-29 11:15 | disposition home or self-care (01) | DRG 807 ==
LOC: OPOB 07:07 → OBGYN 07:07
PROVIDERS: Admitting Provider Obstetrics & Gynecology; Visit Provider Obstetrics & Gynecology
DX: O24.425 Gestational diabetes mellitus in childbirth, controlled by oral hypoglycemic drugs (principal); Z37.0 Single live birth; O70.1 Second degree perineal laceration during delivery; O69.2XX0 Labor and delivery complicated by other cord entanglement, with compression, not applicable or unspecified; O99.02 Anemia complicating childbirth; D64.9 Anemia, unspecified; O99.344 Other mental disorders complicating childbirth; F32.A Depression, unspecified; F41.9 Anxiety disorder, unspecified; Z3A.38 38 weeks gestation of pregnancy
CPT/HCPCS: 36415; 36416; 59025; 59409; 82962; 85025; 85027; 86850; 86900; 99211; J2590; J2795; J3010; J7120; J7121

== ENCOUNTER 2024-07-31 11:18 | Emergency (ER) | payer MEDICAID, SELFPAY ==
[2024-07-31 11:22] VITALS: BP 133/74; PULSE 85; RESP 18; TEMP 36.4; O2SAT 98; BMI 34.5
[2024-07-31 11:53] LABS: Basophils # 0.1 10^3/uL (0.0-0.1); Basophils % 0.7 %; Eosinophils # 0.3 10^3/uL (0.0-0.8); Eosinophils % 3.5 %; Hematocrit 32.4 % (36-47); Lymphocytes # 2.2 10^3/uL (0.8-4.8); Lymphocytes % 24.6 %; Mean Corpuscular HGB Conc 33.3 g/dL (30-55); Mean Corpuscular Hemoglobin 30.7 pg (27-33); Mean Platelet Volume 10.1 fL (7.4-10.4); Monocytes # 0.7 10^3/uL (0.2-0.9); Monocytes % 7.3 %; Neutrophils # 5.76 10^3/uL (1.8-7.7); Neutrophils % 63.7 %; Nucleated Red Blood Cells % 0 %; Platelet Count 446 10^3/cmm (157-399); Red Blood Count 3.52 10^6/uL (3.85-5.65); Red Cell Distribution Width 14.1 % (12.1-15.1); White Blood Count 9.05 10^3/uL (3.29-11.43)
[2024-07-31 12:13] LABS: Alanine Aminotransferase 23 U/L (0-33); Albumin Level 3.4 g/dL (3.5-5.2); Alkaline Phosphatase 112 U/L (35-105); Anion Gap 15.7 (5-19); Aspartate Amino Transferase 19 U/L (0-32); Blood Urea Nitrogen 8 mg/dL (6-20); Calcium 8.9 mg/dL (8.5-10.5); Carbon Dioxide 25 mmol/L (22-29); Chloride 105 mmol/L (98-107); Creatinine Clr Calc Pharmacy 179.8582; Globulin 3.2 g/dL (1.3-4.6); Glomerular Filtration Rate 149.1 mL/min (90-130); Glucose 117 mg/dL (65-115); Lactate Dehydrogenase 267 U/L (135-214); Osmolality Calculated 293 mOsm/kg (285-295); Potassium 3.7 mmol/L (3.5-5.1); Sodium 142 mmol/L (136-145); Total Bilirubin 0.2 mg/dL (0.15-1.2); Total Protein 6.6 g/dL (6.6-8.7)
[2024-07-31 15:29] VITALS: BP 144/80; PULSE 69; RESP 14; O2SAT 99
--- NOTE | 2024-07-31 15:43 | PC.NURSE ---
MOTHER CALLED AND STATES THAT WE HAVE FORGOTTEN ABOUT MY DAUGHTER. NURSE EXPLAINS TRIAGE ASSESSMENT AND ANNIE LEVEL TO MOTHER. MOTHER STATES THAT PATIENT HAS BEEN IN THE WAITING ROOM FOR 3.5 HOURS AND HAS BABY AT HOME THAT NEEDS TO BE FED. THIS NURSE APOLOGIZES FOR WAIT TIMES AND TELLS MOTHER THAT PATIENT IS IN A ROOM AND HAS BEEN SEEN BY A PROVIDER. MOTHER STATES YOU DO NOT WANT ME TO COME DOWN THERE AND CONTINUES TO YELL AT NURSE OVER THE PHONE. NURSE CONTINUES TO EXPLAIN TRIAGE AND AMBULANCE ENTERING THE ER. MOTHER STATES SHE HASN'T EATEN SINCE 1130 AND IS ABOUT TO PASS OUT. PATIENT BROUGHT A SANDWICH AND HAS VOICED NO CONCERNS TO THIS NURSE OR OTHERS.
[2024-07-31 15:57] VITALS: BP 133/87; PULSE 63; RESP 14; O2SAT 99
--- NOTE | 2024-07-31 16:02 | W.ED.GENADLT ---
HPI - General Adult General: Chief complaint: General Medical Stated complaint: high bp (gave Tuesday) Time Seen by Provider: 07/31/24 15:18 Source: patient Mode of arrival: ambulatory Limitations: no limitations History of Present Illness: Patient is a 24-year-old female who presents to the ED today fearing she has preeclampsia. Patient states she has had elevated blood pressure readings at home. She feels dizzy. She was noted to have dizziness while in the hospital after delivering. Will be felt this was most likely secondary to anemia. She is placed on iron supplementation. She complains of a mild backache where she received her epidural. Mild headache that she rates at a 3/10. She is not having any significant chest pains or difficulty breathing. Blood pressure upon arrival to the emergency department is 133/74. She reports no complications with her vaginal . Onset (ago): day(s) Severity: mild Relieving factors: none Exacerbating factors: none Associated symptoms: Reports headache(s); Deny chest pain, confusion, dyspnea, malaise, nausea, syncope or vomiting Treatments prior to arrival: none Related Data Home Medications Medication Instructions Recorded Confirmed docosahexaenoic acid 200 mg 200 mg PO DAILY 12/20/23 07/25/24 capsule ( DHA) hydroxyzine HCl 10 mg tablet 10 mg PO BEDTIME 01/04/24 07/27/24 cetirizine 10 mg capsule (All Day 10 mg PO DAILY PRN Itching 06/14/24 07/27/24 Allergy (cetirizine)) sertraline 25 mg tablet (Zoloft) 50 mg PO DAILY 07/25/24 07/25/24 cyclobenzaprine 7.5 mg tablet 7.5 mg PO BEDTIME 07/31/24 07/31/24 fluticasone propionate 50 1 spray intranasal DAILY 07/31/24 07/31/24 mcg/actuation nasal spray,suspension glyburide 2.5 mg tablet 1.25 mg PO BEDTIME 07/31/24 07/31/24 Previous Rx's Medication Instructions Recorded acetaminophen 325 mg capsule 325 mg PO Q4H PRN fever or pain 06/30/22 #60 caps ferrous fumarate 324 mg (106 mg 324 mg PO DAILY #90 tabs 07/29/24 iron) tablet Allergies Allergy/AdvReac Type Severity Reaction Status Date / Time No Known Allergies Allergy Verified 07/25/24 14:04 Review of Systems Const: Denies: fever(s), chills, body aches, fatigue or malaise Eyes: Denies: change in vision, floaters or seeing flashes Card: Denies: chest pain, edema, syncope, pre-syncope, dyspnea on exertion or orthopnea Resp: Denies: dyspnea GI: Denies: abdominal pain, nausea or vomiting Musc: Reports: back pain Neuro: Reports: headache(s); Denies: numbness in extremities, weakness in extremities, sensory changes, difficulty walking, dizziness or confusion PFSH ED PFSH: Medical History Vaginal delivery Gestational diabetes Supervision of other normal Anxiety and depression No pertinent past medical history Neg. Hx: HTN, DM, DVT/PE PCP: Dr. 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 De Jesus. No findings; normal anatomy. History of ear surgery Family History Grandmother Diabetes maternal Hypertension maternal Family/Other Colon cancer maternal uncle Ovarian cancer paternal great aunt, onset unknown Grandfather Heart disease Denies family history of Breast cancer Uterine cancer Thyroid disease Stroke Social History Smoking and tobacco/nicotine status: never used tobacco/nicotine Physical Exam Const: COMMON NORMALS: no acute distress, no limitations, healthy appearing, alert and well nourished GENERAL APPEARANCE: cooperative Eye: GENERAL EYE: appearance normal, both eyes and all related structures Chest: COMMONS NORMALS: normal inspection of the chest Resp: COMMON NORMALS: normal respiratory effort and clear to auscultation bilaterally AUSCULTATION: clear to auscultation bilaterally Cardio: COMMON NORMALS: regular rate and regular rhythm RATE: regular rate RHYTHM: regular rhythm GI: COMMON NORMALS: Normal to inspection, nondistended, normoactive bowel sounds present, Soft to palpation and non-tender PALPATION: Yes Soft to palpation Back/Pelvis: COMMON NORMALS: thoracic and lumbar spine normal to inspection, no thoracic nor lumbar tenderness, thoraco-lumbar ROM normal and straight leg raise negative bilaterally OTHER: epidural site appears normal Extremity: COMMON NORMALS: capillary refill normal, no clubbing, cyanosis or edema, no calf tenderness and no pedal edema GENERAL: Yes normal exam except as noted Neuro: EBONI COMA SCALE: document GCS findings Eboni coma scale eye opening: Spontaneous [place] coma scale verbal response: Orientated Eboni coma scale motor response: Obey commands Eboni coma scale total score: 15 COMMON NORMALS: moves all extremities, no focal motor deficits, no sensory deficits noted and gait normal SENSORIUM/ORIENTATION: Yes alert Course Vital Signs: Vital signs: Vital Signs Temperature 97.6 F 07/31/24 11:22 Pulse Rate 72 07/31/24 16:24 Respiratory Rate 14 07/31/24 16:24 Blood Pressure 142/87 07/31/24 16:24 Pulse Oximetry 99 07/31/24 16:24 Oxygen Delivery Me thod Room Air 07/31/24 16:24 MDM - General Adult Medical Decision Making Patient's blood pressures have been 130s/80s during her visit here. At highest systolic is 144. Remainder of vitals are unremarkable. She is not thrombocytopenic. LFTs are unremarkable. Her BUN and creatinine are normal. No proteinuria. At this time patient will be allowed discharge. Will have case management set her up to see her OB provider for further evaluation if needed. This discussed with Dr. Gary who agrees with care plan here in the emergency department. Return precautions discussed. Medical Records I reviewed the patient's medical records. Lab Data I reviewed the patient's lab results. 07/31/24 11:43 07/31/24 11:43 Laboratory Results WBC 9.05 10^3/uL (3.29-11.43) 07/31/24 11:43 RBC 3.52 10^6/uL (3.85-5.65) L 07/31/24 11:43 Hgb 10.80 g/dL (11.27-16.99) L 07/31/24 11:43 Hct 32.4 % (36-47) L 07/31/24 11:43 MCV 92.0 fl (85-98) 07/31/24 11:43 MCH 30.7 pg (27-33) 07/31/24 11:43 MCHC 33.3 g/dL (30-55) 07/31/24 11:43 RDW 14.1 % (12.1-15.1) 07/31/24 11:43 Plt Count 446 10^3/cmm (157-399) H 07/31/24 11:43 MPV 10.1 fL (7.4-10.4) 07/31/24 11:43 Neut % (Auto) 63.7 % 07/31/24 11:43 Lymph % (Auto) 24.6 % 07/31/24 11:43 Tate % (Auto) 7.3 % 07/31/24 11:43 Eos % (Auto) 3.5 % 07/31/24 11:43 Baso % (Auto) 0.7 % 07/31/24 11:43 Neut # (Auto) 5.76 10^3/uL (1.8-7.7) 07/31/24 11:43 Lymph # (Auto) 2.2 10^3/uL (0.8-4.8) 07/31/24 11:43 Tate # (Auto) 0.7 10^3/uL (0.2-0.9) 07/31/24 11:43 Eos # (Auto) 0.3 10^3/uL (0.0-0.8) 07/31/24 11:43 Baso # (Auto) 0.1 10^3/uL (0.0-0.1) 07/31/24 11:43 Nucleated RBC % (auto) 0 % 07/31/24 11:43 Nucleated RBCs # 0.0 /100WBC 07/31/24 11:43 Sodium 142 mmol/L (136-145) 07/31/24 11:43 Potassium 3.7 mmol/L (3.5-5.1) 07/31/24 11:43 Chloride 105 mmol/L (98-107) 07/31/24 11:43 Carbon Dioxide 25 mmol/L (22-29) 07/31/24 11:43 Anion Gap 15.7 (5-19) 07/31/24 11:43 BUN 8 mg/dL (6-20) 07/31/24 11:43 Creatinine 0.5 mg/dL (0.5-0.9) 07/31/24 11:43 GFR Calculation 149.1 mL/min (90-130) H 07/31/24 11:43 Glucose 117 mg/dL (65-115) H 07/31/24 11:43 Calculated Osmolality 293 mOsm/kg (285-295) 07/31/24 11:43 Calcium 8.9 mg/dL (8.5-10.5) 07/31/24 11:43 Total Bilirubin 0.2 mg/dL (0.15-1.2) 07/31/24 11:43 AST 19 U/L (0-32) 07/31/24 11:43 ALT 23 U/L (0-33) 07/31/24 11:43 Alkaline Phosphatase 112 U/L (35-105) H 07/31/24 11:43 Lactate Dehydrogenase 267 U/L (135-214) H 07/31/24 11:43 Total Protein 6.6 g/dL (6.6-8.7) 07/31/24 11:43 Albumin 3.4 g/dL (3.5-5.2) L 07/31/24 11:43 Globulin 3.2 g/dL (1.3-4.6) 07/31/24 11:43 Urine Color Yellow (Yellow) 07/31/24 15:54 Urine Appearance Clear (CLEAR) 07/31/24 15:54 Urine pH 7.5 (5-7) 07/31/24 15:54 Ur Specific [place] 1.013 (1.005-1.030) 07/31/24 15:54 Urine Protein Negative (Negative) 07/31/24 15:54 Urine Glucose (UA) Negative (Normal) 07/31/24 15:54 Urine Ketones Negative (Negative) 07/31/24 15:54 Urine Blood 1+ (Negative) A 07/31/24 15:54 Urine Nitrate Negative (Negative) 07/31/24 15:54 Urine Bilirubin Negative (Negative) 07/31/24 15:54 Urine Urobilinogen 0.2 mg/dL (Negative) 07/31/24 15:54 Ur Leukocyte Esterase Trace (Negative) A 07/31/24 15:54 Urine RBC 0-4 /hpf (0-2) H 07/31/24 15:54 Urine WBC Rare /hpf (0-5) 07/31/24 15:54 Ur Squamous Epith Cells 0-4 /hpf (0-5) H 07/31/24 15:54 Amorphous Sediment Trace /hpf 07/31/24 15:54 Urine Bacteria None /hpf (NONE) 07/31/24 15:54 Urine Mucus None /hpf 07/31/24 15:54 No radiology studies performed this visit Discharge Plan Discharge Patient Disposition: Home Clinical Impression: Feared condition not demonstrated Condition: Stable Prescriptions: No Action DHA 200 mg capsule 200 mg PO DAILY hydroxyzine HCl 10 mg tablet 10 mg PO BEDTIME All Day Allergy (cetirizine) 10 mg capsule 10 mg PO DAILY PRN (Reason: Itching) sertraline [Zoloft] 25 mg tablet 50 mg PO DAILY glyburide 2.5 mg tablet 1.25 mg PO BEDTIME fluticasone propionate 50 mcg/actuation spray,suspension 1 spray INTRANASAL DAILY cyclobenzaprine 7.5 mg tablet 7.5 mg PO BEDTIME acetaminophen 325 mg capsule 325 mg PO Q4H PRN (Reason: fever or pain) Qty: 60 0RF ferrous fumarate 324 mg (106 mg iron) tablet 324 mg PO DAILY Qty: 90 3RF Discharge Orders: Discharge ED (Routine); Ordered 07/31/24 Ordered By: Annamarie Johnson Activity Restrictions/Additional Instructions: As we discussed, I do not have any concern for preeclampsia at this time. I will have case management schedule you a sooner appointment to see your OB provider for further evaluation. You need to return to the emergency department for severe headache, repetitive episodes of vomiting, severe chest pain, shortness of breath, difficulty breathing, or any other concerns you may have. Coding Level of Care Code ED Tacker Off for Basil Bowman
[2024-07-31 16:15] LABS: Bilirubin Urine Negative (Negative); Blood Urine 1+ (Negative); Glucose Urine UA Negative (Normal); Ketones Urine Negative (Negative); Leukocyte Esterase Urine Trace (Negative); Nitrate Urine Negative (Negative); Protein Urine Negative (Negative); Specific Gravity, Urine 1.013 (1.005-1.030); Urine Appearance Clear (CLEAR); Urine Color Yellow (Yellow); Urobilinogen Urine 0.2 mg/dL (Negative); pH Urine 7.5 (5-7)
[2024-07-31 16:24] VITALS: BP 142/87; PULSE 72; RESP 14; O2SAT 99
[2024-07-31 16:33] LABS: UA Manual Slide Review YES; UA Slide Review UA Slide Review Perf
[2024-07-31 16:34] LABS: Add Urine Microscopic? YES; RBC Urine 0-4 /hpf (0-2)
[2024-07-31 16:35] LABS: Add Urine Culture? No; Amorphous Sediment Urine TRACE /hpf; Squamous Epithelial Cell Urine 0-4 /hpf (0-5); WBC Urine RARE /hpf (0-5)
[2024-07-31 16:53] VITALS: BP 143/84; PULSE 73; RESP 14; O2SAT 99
== END 2024-07-31 16:55 | disposition home or self-care (01) ==
PROVIDERS: Emergency Medicine; Emergency Provider Physician Assistant
DX: Z71.1 Person with feared health complaint in whom no diagnosis is made (principal)
CPT/HCPCS: 36415; 80053; 81001; 83615; 85025; 99283

== ENCOUNTER → 2024-09-14 11:04 | Outpatient (BNVA) | payer OTHER, MEDICAID, SELFPAY | PROVIDERS: Visit Provider Obstetrics & Gynecology | DX: O24.439 Gestational diabetes mellitus in the puerperium, unspecified control (principal); Z3A.00 Weeks of gestation of pregnancy not specified | CPT/HCPCS: 82951 ==

== ENCOUNTER → 2025-01-03 08:05 | Outpatient (BNVA) | payer OTHER, MEDICAID, SELFPAY | PROVIDERS: Visit Provider Obstetrics & Gynecology | DX: Z30.017 Encounter for initial prescription of implantable subdermal contraceptive (principal) | CPT/HCPCS: 81025 ==